=== PATIENT | male | born 1960 | race Caucasian/White ===

== ENCOUNTER → 2023-11-13 07:57 | Outpatient (REF) | payer OTHER, SELFPAY | LOC: WOUND 07:57 | PROVIDERS: ATTENDING PHYSICIAN Surgery; REFERRING PHYSICIAN Physician Assistant Medical | DX: T23.211A Burn of second degree of right thumb (nail), initial encounter (principal); T23.251A Burn of second degree of right palm, initial encounter; E11.9 Type 2 diabetes mellitus without complications; Z79.4 Long term (current) use of insulin; I10 Essential (primary) hypertension; X10.1XXA Contact with hot food, initial encounter; Y92.89 Other specified places as the place of occurrence of the external cause | CPT/HCPCS: 11042; 99204 ==

== ENCOUNTER → 2023-11-20 08:45 | Outpatient (REF) | payer OTHER, SELFPAY | LOC: WOUND 08:45 | PROVIDERS: ATTENDING PHYSICIAN Surgery; FAMILY PHYSICIAN Physician Assistant Medical | DX: T23.221A Burn of second degree of single right finger (nail) except thumb, initial encounter (principal); T23.251A Burn of second degree of right palm, initial encounter; E11.9 Type 2 diabetes mellitus without complications; Z79.4 Long term (current) use of insulin; I10 Essential (primary) hypertension; X08.8XXA Exposure to other specified smoke, fire and flames, initial encounter | CPT/HCPCS: 99212 ==

== ENCOUNTER 2024-01-21 17:58 | Inpatient (IN) | payer OTHER, SELFPAY ==
[2024-01-21] VITALS (10 sets, daily range): BP systolic 109–163; BP diastolic 60–91; PULSE 90–109; BMI 28.5; BMI 28.3
[2024-01-21 13:16] LABS: COVID-19 Antigen Negative (Negative)
[2024-01-21 13:59] LABS: Venous Blood Gas B.E. 4.6 mmol/L (-4 to +4); Venous Blood Gas HCO3 28.3 mmol/L (22-27); Venous Blood Gas O2 Sat % 71.2 %; Venous Blood Gas O2 Therapy 100; Venous Blood Gas pCO2 38 mmHg (35-48); Venous Blood Gas pH 7.48 (7.32-7.43); Venous Blood Gas pO2 34 mmHg (30-50)
[2024-01-21 14:00] LABS: % Basophils 0.2 % (0-2); % Eosinophils 0.1 % (0-6); % Immature Granulocytes 0.3 % (0-0.5); % Lymphocytes 12.9 % (20.5-51.1); % Monocytes 11.6 % (1.7-9.3); % Neutrophils 74.9 % (42.2-75.2); Absolute Lymphocytes 1.6 10^3/uL (1.2-3.4); Absolute Monocytes 1.4 10^3/uL (0.1-0.6); Absolute Neutrophils 9.1 10^3/uL (1.4-6.5); Hematocrit 45.9 % (39.0-52.0); Hemoglobin 16.7 g/dL (13.0-18.0); Mean Corp Hgb Conc. 36.4 g/dL (33.0-37.0); Mean Corpuscular Hgb 29.8 pg (27.0-31.0); Mean Corpuscular Volume 81.8 fL (80.0-94.0); Mean Platelet Volume 10.2 fL (7.4-10.4); Nucleated Red Blood Cells % 0 % (-); Platelet Count 269 10^3/uL (130-400); Red Blood Cell Count 5.61 10^6/uL (4.70-6.10); Red Cell Dist. Width 12.2 % (11.5-14.5); White Blood Cell Count 12.2 10^3/uL (4.8-10.8)
--- NOTE | 2024-01-21 14:05 | ED.GENMED ---
History of Present Illness
General
Chief Complaint: Cold/Flu/URI Symptoms
Time Seen by Provider: 01/21/24 13:06
Travel History
Have you had any contact with someone who has COVID-19?: No
Do you have any symptoms of coronavirus? Fever > 100 degrees, chills, cough, shortness of breath, sore throat, loss of taste or smell, muscle aches, or headache?: No
History of Present Illness
History of Present Illness:
63-year-old male with history of type 1 insulin-dependent diabetes presents to the emergency department for evaluation of nausea, decreased appetite, dizziness when ambulating, mild cough, intermittent chest pain ongoing for the past 5 days. Chest
pain is not clearly worse with exertion. States when he initially developed symptoms he thought 'I just had a cold'. Denies any ill contacts but notes that he was at [facility] visiting his daughter frequently this past week. Denies any
objective fevers at home. Chest pain is minimal currently. Denies any associated Vomiting or diarrhea.
Past History
Past History
ED Past Medical History: HTN, Hypercholesterolemia and IDDM
ED Past Surgical History: None
Social History
Tobacco: Former smoker
Alcohol: Occasional
Personal:
Living: with family
Employment: Employed
Review of Systems
Review of Systems
Allergies reviewed?: Yes
All Other Systems: ROS reviewed and negative except as documented in HPI and ROS
Phy Exam
Physical Exam
Physical Exam:
GEN: Well appearing, NAD, WDWN
Eyes: PERRLA, EOMs intact, no scleral icterus
HENT: NCAT, oral mucosa moist
Lungs: CTAB, no wheezes, rales, rhonchi, normal chest wall excursion
Cardiac: Mildly tachycardic after minimal exertion, no murmur or irregularity
Abdomen: S, NT, ND, NABS, no masses or hepatosplenomegaly
Neuro: AO x 3
MSK: No gross deformity or ecchymosis. No edema. No digital clubbing
Skin: No rashes, petechiae. Normal color, no pallor or jaundice.
Psych: Calm, cooperative, proper hygiene
Course
Orders/Labs/Results
Orders:
Orders
01/21/24 12:53
COVID-19 Antigen Urgent
Source: Nasal Swab
INF RAPID [Influenza A+B Rapid Molecular] Urgent
BUSHRA Source: Nasal Swab
Specimen Description:
01/21/24 13:31
Electrocardiogram (*1) Urgent
Reason for Study: Tachycardia
EKG- Treatment ONCE
01/21/24 13:33
0.9% Sodium Chloride 1000 ml [Nss] 1,000 ml IV BOLUS
01/21/24 13:48
Basic Metabolic Panel Urgent
Complete Blood Count/With Diff Urgent
NT-proBNP Urgent
Comment: add-on
Serum Osmolality Urgent
Troponin I Urgent
Venous Blood Gas Urgent
%Oxygen/Room Air: 100
01/21/24 14:34
Add On- LAB Urgent
Tests Added?: BNP
CT Chest Pe Study Urgent
Comment:
Reason For Exam: chest pain/SOB
01/21/24 15:31
Aspirin Chewable [Low Strength Aspirin] 243 mg PO NOW STA
01/21/24 15:47
Heparin 4,000 units IV NOW STA
Pharmacy Request to Place See Dose Instructions PO NOW STA
Discontinue all Active Warfarin orders?: Yes
Nursing to Place Non Medication Order As Directed
Physician Order: PTT 6 hours after initial start of Heparin infusion
01/21/24 16:00
PTT Routine
Prothrombin Time Routine
Heparin 75335 Units/250 ml 25,000 units in 250 ml IV PER PROTOCOL
Weight to be used for heparin protocol in kilograms (kg):: 87.4
Protocol:: Cardiac Tx/Acute Coronary
PTT Goal Range to be used:: PTT 73 to 111 seconds
Order type:: Initial
INITIAL Infusion Dose (UNITS/KG/hr) & then follow protocol:: 15 units/kg/hr
Infusion Dose in UNITS/hr & then follow protocol (UNITS/hr):: 1,300
INFUSION RATE in mL/hr & then follow protocol (mL/hr):: 13
PTT less than or equal to 64 seconds:: Increase rate by 200 units/hr (+ 2 mL/hr)
PTT 64.1 to 72.9 seconds:: Increase rate by 100 units/hr (+ 1 mL/hr)
PTT 73 to 111 seconds:: Target Range. No change in rate.
PTT 111.1 to 130.9 seconds:: Decrease rate by 100 units/hr (- 1 mL/hr)
PTT 131 to 199.9 seconds:: HOLD for 1 hr. Then decrease rate by 200 units/hr (- 2 mL/hr)
PTT greater than or equal to 200 seconds:: HOLD for 2 hrs & Notify Provider. Then decrease by 200 units/hr (-
2 mL/hr)
Lab follow-up:: Each change, PTT q6h until 2 consecutive are therapeutic. Then PTT
daily.
Pharmacy Request to Place See Dose Instructions IV DIRECTED
01/21/24 16:02
Urine Sodium Urgent
01/21/24 16:03
Add On- LAB Urgent
Tests Added?: serum osmolality
Osmolality, Random Urine Urgent
Urinalysis Reflex To Culture Urgent
01/21/24 16:07
Troponin I Urgent
Abnormal Lab Results
01/21/24
13:48
WBC 12.2 H 10^3/uL
(4.8-10.8)
Absolute Neuts (auto) 9.1 H 10^3/uL
(1.4-6.5)
Absolute Monos (auto) 1.4 H 10^3/uL
(0.1-0.6)
Lymphocytes % 12.9 L %
(20.5-51.1)
Monocytes % 11.6 H %
(1.7-9.3)
VBG pH 7.48 H
(7.32-7.43)
VBG HCO3 28.3 H mmol/L
(22-27)
Sodium 122 L mmol/L
(135-145)
Chloride 85 L mmol/L
(98-107)
BUN 26 H mg/dl
(9-20)
Glucose 254 H mg/dl
(70-99)
Troponin I 0.819 H* ng/ml
01/21/24 13:48
01/21/24 13:48
Vital Signs
Initial and Last Documented VS:
Initial Vital Signs
Temp Pulse Resp BP Pulse Ox
97.9 F 104 20 128/82 99
01/21/24 12:48 01/21/24 12:48 01/21/24 12:48 01/21/24 12:48 01/21/24 12:48
Last Documented Vital Signs
Temp Pulse Resp BP Pulse Ox
97.9 F 89 16 147/84 96
01/21/24 12:48 01/21/24 15:00 01/21/24 15:00 01/21/24 15:00 01/21/24 15:00
MDM/Problems Addressed
MDM/Problems Addressed:
63-year-old male presenting with extremely vague symptoms of orthostatic dizziness, intermittent chest pain, malaise, and nausea with poor appetite for the past several days. He is found to have an ischemic appearing EKG with markedly elevated
troponin. Given the vagueness of his symptoms and lack of clear angina presentation he was sent for a CT of the chest to rule out pulmonary embolism, pending at time of admission however appears to be negative on my interpretation. Patient started
promptly on antiplatelets and heparin, he is chest pain-free in the emergency department at this time. Will admit to the hospitalist service for NSTEMI and potential cardiac intervention.
Comment
Comment:
EKG independently interpreted by me shows normal sinus rhythm with lateral T wave flattening/ST depressions suspicious for ischemia, no ST elevations
*Critical Care Note
Total Time (30-74mins, 75-104mins- exclusive of procedures): 40 min
comment:
Critical care time: 40 min
Critical care time was exclusive of: Separately billable procedures, treating other patients, and teaching time
Critical care was necessary to treat or prevent imminent or life-threatening deterioration of the following conditions: ACS/NSTEMI
Critical care time spent personally by me on the following activities:
[x] Review of old charts
[x] Obtaining history from patient or surrogate
[x] Ordering and review of the laboratory studies
[x] Ordering and review of radiographic studies
[x] Ordering and performing treatments and interventions
[x] Patient patient's response to treatment
[x] Development of treatment plan with patient or surrogate
ED Attending Note
-
Portions of this chart may have been created with voice recognition software.� Occasional wrong word or��sound alike� substitutions may have occurred due to the inherent limitations of voice recognition software.
Discharge Plan
Departure
Patient Disposition: Admit
Date of Disposition: 01/21/24
Time of Disposition: 16:25
Admit to: IVU
Presentation/result/management discussed w/ accepting MD/DO: Hospitalist
Discharge Problem:
Non-ST elevation MO (NSTEMI)
Prescriptions:
No Action
aspirin 81 MG tablet,delayed release (DR/EC)
81 mg PO DAILY
simvastatin 20 MG tablet
40 mg PO DAILY
multivitamin [Daily Multiple] 1 EACH tablet
1 ea PO DAILY
ranitidine HCl 150 MG tablet
150 mg PO DAILY
losartan 25 MG tablet
25 mg PO DAILY
Humalog Insulin Pump
0 units SC . 24 HOURS
Patient Comments:
Dose varies daily.
[id number] [Airborne (lysine HCl)] 1 EACH tablet, effervescent
1 ea PO DAILY
amoxicillin-pot clavulanate 1 TABLET tablet
1 tab PO Q12 Qty: 20 0RF
Referrals:
Maria Del Carmen Davidson PA-C [Family Provider] -
Interventions
Interventions:
*Risk Screen - Suicide Last Done: 01/21/24 13:39
*General Assessment Last Done: 01/21/24 13:39
*Neglect/Abuse Screening Last Done: 01/21/24 13:39
ED- Fall Risk Assessment Last Done: 01/21/24 13:41
*ED COVID-19 Vaccine History Last Done: 01/21/24 13:39
ED- Pulmonary Assessment Last Done: 01/21/24 13:41
Discharge Date and Time
Print Language: TURKMEN
[2024-01-21 14:17] LABS: Blood Urea Nitrogen 26 mg/dl (9-20); Carbon Dioxide 26 mmol/L (22-30); Chloride 85 mmol/L (98-107); Estimated Creatinine Clearance 84 ml/min; Glucose 254 mg/dl (70-99); Sodium 122 mmol/L (135-145); eGFR > 60.00
[2024-01-21] MEDS: NSS 1000 IV (14:24)
[2024-01-21 14:28] LABS: Troponin I 0.819 ng/ml
[2024-01-21 15:21] LABS: NT-proBNP 3440 pg/ml
[2024-01-21] MEDS: LOW STRENGTH ASPIRIN 243 MG PO (15:56)
[2024-01-21] MEDS: HEPARIN 4000 UNITS IV (15:58)
--- NOTE | 2024-01-21 16:30 | HPS.HSE ---
Family Physician
-
Family Physician: Maria Del Carmen Davidson
Chief Complaint
-
chest pain
History of Present Illness
Mr. Fer Huston is a 63 yo man with hx HTN, HLD, DM1 who presents to the ER with intermittent chest pain over past 5 days in setting of URI symptoms.
Patient states last week he was visiting daughter in the hospital. On Monday he started with nasal congestion and right ear discomfort. He was prescribed Azithromycin by outpatient physician and has taken 2 doses (due in evenings). Nasal
congestion and ear congestion currently improved. He chronically wakes up with mucus stuck in throat and per family has morning episode that sounds like vomiting to get it out. Patient reports last week he had diarrhea and nausea with vomiting
that resolved post given Zofran. He has had decreased appetite but reports staying hydrated. No fevers.
Patient describes chest discomfort in throat exacerbated by eating/drinking. He states hard to say if worse with activity. Per family he has been in bed past week. When he came downstairs this morning he was noticealy short of breath.
Patient was orthostatic in ER. He reports symptoms of orthostasis x months and always has to move very slowly when going from laying to standing position (this preceded current illness).
Medical History
Past Medical History
Past Medical History: Reports HTN, Hypercholesterolemia and Other (DM 1)
Past Surgical History: Reports None
Social History
Tobacco: Former Smoker
Alcohol: Occasional
Family History
Family History: Not pertinent
Allergies / Home Medications
Allergies reflects when Allergies were last updated in [facility].
Home Medications with original date entered in [facility]
Allergy/Medication List:
Allergies
Allergy/AdvReac Type Severity Reaction Status Date / Time
Sulfa (Sulfonamide Allergy Intermediate Itching, Verified 01/21/24 12:48
Antibiotics) hives
Home Medications
Airborne Effervescent Tablet 2 tab PO DAILY 01/21/24
albuterol sulfate 90 mcg/actuation aerosol inhaler 2 puff inhalation R Q6HPRN PRN sob 01/21/24
aspirin 81 mg tablet,delayed release 81 mg PO DAILY 01/21/24
atorvastatin 40 mg tablet 40 mg PO DAILY 01/21/24
azithromycin 250 mg tablet 0 mg PO .COMPLEX 01/21/24
ezetimibe 10 mg tablet 10 mg PO DAILY 01/21/24
fexofenadine 180 mg tablet 180 mg PO DAILY 01/21/24
insulin aspart U-100 100 unit/mL subcutaneous solution 0 unit SC .VIA PUMP 01/21/24
lansoprazole 15 mg capsule,delayed release 15 mg PO DAILY 01/21/24
losartan 100 mg-hydrochlorothiazide 12.5 mg tablet 1 tab PO DAILY 01/21/24
ondansetron HCl 4 mg tablet 4 mg PO BIDPRN PRN nausea/vomiting 01/21/24
therapeutic multivitamin 1 tab PO DAILY 01/21/24
Review of Systems
-
History Source: Patient
A 12 point ROS was completed and negative except as noted: Yes
Physical Exam
Vital Signs
Vital Signs
Temp Pulse Resp BP Pulse Ox
97.9 F 89 16 147/84 96
01/21/24 12:48 01/21/24 15:00 01/21/24 15:00 01/21/24 15:00 01/21/24 15:00
Physical Exam
General: No Apparent Distress and Conversant
HEENT: PERRLA
Respiratory: Clear and Other (chest pain not reproducible ); No Wheezes
Cardiac: S1/S2 and Regular Rhythm
GI: Soft and Non Tender
Musculoskeletal: No Edema
Skin: Warm and Dry; No Rash
Neuro: AO x 3
Psych: Calm
Laboratory Results
-
01/21/24 13:48
01/21/24 13:48
Laboratory Results
PT Cancelled 01/21/24 15:10
INR Cancelled 01/21/24 15:10
APTT Cancelled 01/21/24 16:00
Total Bilirubin Cancelled 01/21/24 13:48
AST Cancelled 01/21/24 13:48
ALT Cancelled 01/21/24 13:48
Alkaline Phosphatase Cancelled 01/21/24 13:48
Troponin I 0.819 ng/ml H* 01/21/24 13:48
Data Reviewed
-
Diagnostic Radiology: Report Reviewed by me
Lab Data: Labs Reviewed by me
Impression/Plan
-
Mr. Fer Huston is a 63 yo man with hx HTN, HLD, DM1 who presents to the ER with intermittent chest pain over past 5 days.
Triage VS: T 97.9, P 104, RR 20, BP 128/82, SpO2 99%
LABS: Na 122 (corrected 124), Cl 85, BUN 26, Cr 0.9, Glucose 254, Troponin 0.819 --> 0.858, WBC 12.2, Hg 16.7, PLT 269
EKG: sinus with PAC's, ST depression lateral leads; T wave flattening lateral josette
covid, influenza negative
MAR: aspirin, heparin gtt, IVF
Chest CT
IMPRESSION:
There is no pulmonary embolism
No active cardiopulmonary disease
NSTEMI
-chest pain atypical as patient stating exacerbating with food intake. However given RF of DM, HTN and finding of elevated Troponin further work-up indicated.
-admit to telemetry
-Trop up to 0.858, will continue to trend
-asa/statin
-continue IV heparin gtt
-cardiology consult
-TTE
-NPO after MN for possible cardiac cath
-will start pepcid as sx resemble indigestion as well
Hyponatremia
-corrected Na with glucose is 124. likely SIADH/ high free water intake compared to solute with recent illness. Patient also on losartan-HCTZ at home
-awaiting urine studies
-orthostatic in ER and received 1L fluid bolus but it appears orthostasis is chronic over months
-case discussed with Dr. Moe who recommends initiation of 3% 250cc 30cc/hr
-repeat Na at 11PM and 5AM. Goal Na (corrected) tomorrow AM is ~ 127-128
-AM cortisol and TSH
-stop HCTZ
Orthostatic Hypotension
HTN
-patient reports chronic symptoms
-F/U TTE
-will order AM cortisol and TSH
-hold losartan-HCTZ
DM 1
-patient to use his own insulin pump - discussed with pharmacy who will confirm order
-F/U A1c
Recent URI
Cough/Congestion
-will complete patient's previously prescribed Azithromycin course
-mucinex, acapella
-discussed trial flonase at home for chronic morning congestion (not formulary in hospital)
DVT PPx heparin gtt
FULL CODE
[2024-01-21 16:35] LABS: Troponin I 0.858 ng/ml
[2024-01-21 16:38] LABS: INR 1.13; PT 14.3 Sec (11.4-14.6)
[2024-01-21 16:39] LABS: APTT 21.5 Sec (23.4-35.0)
[2024-01-21] MEDS: HEPARIN 25000 UNITS/250 ML IV (17:13)
[2024-01-21 17:23] LABS: Urine Albumin Negative (Neg - Trace); Urine Bilirubin Negative (Negative); Urine Character Clear (Clear); Urine Color Yellow; Urine Glucose Trace (Negative); Urine Ketone 1+ (Negative); Urine Leukocyte Negative (Negative); Urine Nitrite Negative (Negative); Urine Occult Blood Negative (Negative); Urine Specific Gravity 1.005 (<1.030); Urine Urobilinogen Negative (Neg - 1+)
[2024-01-21 17:34] LABS: Osmolality Urine 359 mOsm/kg (300-900)
[2024-01-21 17:36] LABS: Urine Sodium 5 mmol/L (30-90)
[2024-01-21 17:53] LABS: ALT (SGPT) 33 U/L (0-50); AST (SGOT) 33 U/L (17-59); Albumin 3.7 g/dl (3.5-5.0); Alkaline Phosphatase 122 U/L (38-126); Direct Bilirubin 0.4 mg/dl (0.0-0.4); Magnesium 2.3 mg/dl (1.6-2.3); Potassium 3.5 mmol/L (3.5-5.1); Total Bilirubin 1.4 mg/dl (0.2-1.3); Total Protein 6.6 g/dl (6.3-8.2)
[2024-01-21 18:00] LABS: Osmolality Serum 278 mOsm/kg (275-300)
[2024-01-21 18:29] LABS: Glucose - Point of Care 111 mg/dl (70-99)
--- NOTE | 2024-01-21 18:30 | PTCARENOTE ---
Pt. arrived to unit from ED, no c/o pain at this time, resting in bed comfortably. Heparin gtt infusing as ordered. Waiting for IV team nurse for a second line to start the 3% NA. Will pass on to oncoming shift nurse.
[2024-01-21] MEDS: LIPITOR 40 MG PO (19:35)
[2024-01-21] MEDS: MUCINEX 600 MG PO (19:35)
[2024-01-21] MEDS: KCL 40 MEQ PO (19:35)
[2024-01-21] MEDS: ZITHROMAX 250 MG PO (19:35)
[2024-01-21] MEDS: PEPCID 20 MG IV (19:59)
[2024-01-21] MEDS: NSS (PRESERVATIVE FREE) 8 ML IV (19:59)
[2024-01-21] MEDS: SODIUM CHLORIDE 3% 250 IV (20:23)
[2024-01-21 21:34] LABS: Glucose - Point of Care 78 mg/dl (70-99)
[2024-01-21] MEDS: PATIENT'S OWN INSULIN PUMP SC (21:48)
[2024-01-21 23:05] LABS: Glucose - Point of Care 109 mg/dl (70-99)
[2024-01-21 23:21] LABS: APTT 45.4 Sec (23.4-35.0)
[2024-01-21 23:26] LABS: Sodium 126 mmol/L (135-145)
[2024-01-21 23:38] LABS: Troponin I 0.892 ng/ml
--- NOTE | 2024-01-21 23:38 | PTCARENOTE ---
Pt Na 126 on Sodium Chloride 3% @30ml/hr gtt. RN notified MEAT GRADING MACHINE OPERATOR per order- no changes at this time. Pt is resting comfortably w/ call tylre within reach.
[2024-01-22] VITALS (16 sets, daily range): BP systolic 125–177; BP diastolic 65–93; BMI 28.3
[2024-01-22 02:56] LABS: Troponin I 0.835 ng/ml
[2024-01-22 06:18] LABS: Glucose - Point of Care 230 mg/dl (70-99)
[2024-01-22 06:43] LABS: APTT 74.8 Sec (23.4-35.0)
[2024-01-22 06:50] LABS: Troponin I 0.744 ng/ml
[2024-01-22 06:59] LABS: Blood Urea Nitrogen 23 mg/dl (9-20); Calcium 8.9 mg/dl (8.4-10.2); Carbon Dioxide 26 mmol/L (22-30); Chloride 94 mmol/L (98-107); Estimated Creatinine Clearance 84 ml/min; Glucose 265 mg/dl (70-99); HDL Cholesterol 51 mg/dl; LDL Cholesterol, Calculated 88 mg/dl; Potassium 5.3 mmol/L (3.5-5.1); Sodium 128 mmol/L (135-145); Total Cholesterol 158 mg/dl (50-199); Triglyceride 99 mg/dl (10-149); Very Low Density Lipoprotein 19 mg/dl (0-30); eGFR > 60.00
[2024-01-22] MEDS: PATIENT'S OWN INSULIN PUMP 8.90000000000000036 UNITS SC (07:40)
[2024-01-22] MEDS: CLARITIN 10 MG PO (08:35)
[2024-01-22] MEDS: PROTONIX 40 MG PO (08:35)
[2024-01-22] MEDS: MUCINEX 600 MG PO ×2 (08:35→20:35)
[2024-01-22] MEDS: LOW STRENGTH ASPIRIN 81 MG PO (08:35)
[2024-01-22] MEDS: ZETIA 10 MG PO (08:35)
[2024-01-22 08:50] LABS: Glycohemoglobin (HgbA1c) 8.2 % (4.0-5.6)
--- NOTE | 2024-01-22 08:57 | CON.CAR ---
Addendum entered and electronically signed by Mike Viveros MD 01/22/24 12:15:
Attending addendum: Patient seen and examined. Briefly, this is a 63-year-old gentleman with a past medical history notable for diabetes mellitus diagnosed in late , hypertension, hyperlipidemia, and former tobacco abuse. He stopped smoking
in 2007. He reports that he is reasonably active performing a lot of home repairs and mowing his lawn. Over the past 6 to 12 months he has noticed an increase in exertional shortness of breath and presented to [facility] with upper
respiratory symptoms. Workup from a pulmonary source was rather unrevealing, however, he was noted to have mildly elevated troponin that peaked at 0.892 ng/mL and is trending lower. A cardiology consult has been requested. Patient denies
significant amount of chest discomfort but did notice some throat tightness mostly after eating. No real exertional component. He does report some dizziness when standing. He was found to be hyponatremic on admission. He received some hypertonic
saline.
GEN: AAO x 3. No acute distress
HEENT: NC/AT, sclera are anicteric, hearing and nares are normal. MMM
NECK: Supple. Normal JVP. No carotid bruits.
LUNGS: Clear to bases bilaterally. No wheezing or rhonchi
CV: Regular rate and rhythm. Normal S1/S2. No S3, No S4. Murmur: None
ABD : Soft, NT, ND, No HSM. Bowel sounds are present.
EXT: No CCE. Dorsalis pedal and posterior tibial pulses palpable bilaterally. Right greater than left.
NEURO: No focal neurologic deficits
SKIN: Warm dry without rash
ECG: Sinus rhythm with nonspecific ST-T changes
Impression/Recommendation
-Elevated troponin with somewhat atypical chest discomfort
Multiple cardiovascular risk factors including long duration of diabetes, former history of tobacco use, hypertension, and hyperlipidemia.
Discussed treatment options in feel that invasive angiography is most appropriate given elevation in troponin and symptoms. I discussed the risk and benefit of invasive angiography and potential stent. Patient and family are in agreement to
proceed.
Discussed with nephrology and will proceed with hydration with normal saline prior to contrast administration as he received contrast for PE study yesterday
-Hypertension
-Long-duration diabetes:
Stressed the need for tight control. Low threshold to consider SGLT2 or GLP-1 RA
-Further management decisions to be made after the angiogram is completed
Original Note:
Consultation
Consultation Request
Date/Time Consultation Requested: 01/21/24 at 1831
Date/Time Consultation Performed: 01/22/24 at 0830
Requesting Provider: Dr. Murillo
Performing Provider: Dr. Viveros
Reason for Consultation: Chest pain, elevated Troponin
Medical History
-
History of Present Illness:
Patient came to [facility] yesterday with chest pain and ROMERO in the setting of a URI and cardiology has been consulted for elevated Troponin. Patient started with URI symptoms described as congestion and chills a week ago. He had a telehealth with his PCP
this past Monday and was started on azithromycin. He took doses Monday and Monday nights, but was not feeling much better by Monday and came to [facility] with ROMERO. patient and say that he has had ROMERO for months prior to this URI. Describes ROMERO
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 No resting chest pain. He had a stress test in 2009 for ROMERO, but this is different. He has DM 2 and HgbA1c 8.2%. He takes atorvastatin for hyperlipidemia and losartan/HCTZ for HTN. He reports lightheadedness with
crouching to standing and sitting to standing position changes on and off for the last year. He was hyponatremic on admission and has received hypertonic saline. He has never had hyponatremia per his report, last outpatient BMP in system is from
07/07/23 and sodium was 140.
PMH:
DM 2
HTN
Hyperlipidemia
Past Medical History
Past Medical History: Other (in HPI)
Past Surgical History: Other (ENT, septum surgery)
Social History
Tobacco: Former Smoker (smoked age 16 to age 48)
Alcohol: Occasional
Drug: None
Personal:
Living: With Family
Family History
Family History: CAD (father with [place])
Allergies / Home Medications
Allergy/AdvReac Type Severity Reaction Status Date / Time
Sulfa (Sulfonamide Allergy Intermediate Itching, Verified 01/21/24 12:48
Antibiotics) hives
�Medication �Instructions �Recorded �Confirmed �Type
Airborne Effervescent Tablet 2 tab PO DAILY Supplement 01/21/24 01/21/24 History
albuterol sulfate 90 mcg/actuation 2 puff inhalation R Q6HPRN PRN sob 01/21/24 01/21/24 History
aerosol inhaler
aspirin 81 mg tablet,delayed 81 mg PO DAILY Blood Clot 01/21/24 01/21/24 History
release Prevention/Tx
atorvastatin 40 mg tablet 40 mg PO DAILY High Cholesterol 01/21/24 01/21/24 History
azithromycin 250 mg tablet 0 mg PO .COMPLEX Infection 01/21/24 01/21/24 History
ezetimibe 10 mg tablet 10 mg PO DAILY High Cholesterol 01/21/24 01/21/24 History
fexofenadine 180 mg tablet 180 mg PO DAILY Allergies 01/21/24 01/21/24 History
insulin aspart U-100 100 unit/mL 0 unit SC .VIA PUMP Diabetes 01/21/24 01/21/24 History
subcutaneous solution
lansoprazole 15 mg capsule,delayed 15 mg PO DAILY Gastrointestinal 01/21/24 01/21/24 History
release Issue
losartan 100 1 tab PO DAILY Blood Pressure 01/21/24 01/21/24 History
mg-hydrochlorothiazide 12.5 mg
tablet
ondansetron HCl 4 mg tablet 4 mg PO BIDPRN PRN nausea/vomiting 01/21/24 01/21/24 History
therapeutic multivitamin 1 tab PO DAILY Supplement 01/21/24 01/21/24 History
Review of Systems
-
History Source: Patient and Family ( sitting bedside helping with HPI)
All other systems: Negative unless noted
Physical Exam
Vital Signs
Temp Pulse Resp BP Pulse Ox
97.9 F 78 18 157/93 96
01/22/24 03:58 01/22/24 03:58 01/22/24 03:58 01/22/24 03:58 01/22/24 03:58
GEN: NAD. AAOx3
HEENT: EOMI, MMM
LUNGS: CTA B/L, no wheezes or rales
CV: Reg, S1/S2, no murmur
ABD: soft, BS+, NT, ND
EXT: No clubbing, cyanosis, lesions or edema B/L
NEURO: Gross non-focal
SKIN: Warm, dry and pink. No rash
Lab Results
01/21/24 13:48
01/22/24 06:21
Troponin I 0.744 ng/ml H* 01/22/24 06:21
Nxe-R-Juglxgmzdfw Pept 3440 pg/ml 01/21/24 13:48
Impression / Plan
-
PCP: Maria Del Carmen BERNAL
Cardiology: None
Impression:
URI, was started on azithromycin prior to admission
Elevated Troponin
Chest pain and ROMERO
Hyponatremia
Hyperkalemia
DM 2
HTN
Hyperlipidemia
Echo 01/22/24: preliminary report, normal EF, no significant valve disease
Plan:
-Patient came to [facility] yesterday with chest pain and ROMERO in the setting of a URI and cardiology has been consulted for elevated Troponin. Patient started with URI symptoms described as congestion and chills a week ago. He had a telehealth with his
PCP this past Monday and was started on azithromycin. He took doses Monday and Monday nights, but was not feeling much better by Monday and came to [facility] with ROMERO. patient and say that he has had ROMERO for months prior to this URI. Describes ROMERO
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 No resting chest pain. He had a stress test in 2009 for ROMERO, but this is different. He has DM 2 and HgbA1c 8.2%. He takes atorvastatin for hyperlipidemia and losartan/HCTZ for HTN. He reports lightheadedness with
crouching to standing and sitting to standing position changes on and off for the last year. He was hyponatremic on admission and has received hypertonic saline. He has never had hyponatremia per his report, last outpatient BMP in system is from
07/07/23 and sodium was 140.
-Talked with patient and in room at length about chest pain, elevated Troponin and symptoms preceding URI. Patient with risk factors including age, gender, h/o smoking, DM, HTN and hyperlipidemia. Patient is agreeable to cath.
-Nonspecific ST changes on ECG reviewed by me.
-Pain free on Heparin gtt since admission
-Patient was taking an aspirin 81 mg daily prior to admission. He cannot think of any contraindication to DAPT.
-LDL 88 on atorvastatin 40 mg daily, will increase to 80 mg daily.
-Outpatient dose of losartan/HCTZ 100/12.5 mg daily is on hold for symptomatic orthostasis. Orthostatic VS are laying 158/60, sitting 127/85 and standing 109/79.
-Nephrology scheduled to see for hyponatremia, patient was given hypertonic saline 3% for 30 ml last night. No outpatient h/o hyponatremia by labs in 2022
-QTc 470 by ECG in ER last night and 484 by ECG this AM at 0209 reviewed by me. Recheck ECG and follow QTc while on azithromycin.
-Now hyperkalemic after KCl for potassium of 3.5 yesterday
[2024-01-22 09:40] LABS: Troponin I 0.647 ng/ml
[2024-01-22 10:13] LABS: TSH 1.48 uIU/ml (0.47-4.68)
[2024-01-22] MEDS: HEPARIN 25000 UNITS/250 ML IV (11:16)
--- NOTE | 2024-01-22 11:43 | W.CON.NEPH ---
Consultation
-
Date/Time Consultation Requested: January 22, 2024 9 AM
Date/Time Consultation Performed: January 22, 2024 11 AM
Requesting Provider: Dr. Burk
Performing Provider: Dr. Hernandez
Reason for Consultation: Hyponatremia
Medical History
-
Chief Complaint: Hyponatremia
History of Present Illness:
This is a 63-year-old gentleman who has diabetes mellitus type 2 with an insulin pump which is only modestly controlled as an outpatient. He also has hypertension on a multidrug regimen which has been fairly stable. He has hyperlipidemia on both
statin and Zetia therapy. This has been otherwise stable. He came to the emergency room yesterday because of 1 week of not feeling well with dyspnea on exertion. He has no chest pain. His oral intake had worsened to the point where he was only
drinking water and not eating anything at all. His family began to give him Pedialyte as well. This was in the last 2 days. Given his persistent symptoms he came to the emergency room after developing lightheadedness from crouching to standing
positions. As have admission he was noted to have a sodium level of 122 and elevated troponin values. This morning his sodium level has improved to 128 and he is for cardiac catheterization given his persistently elevated and abnormal troponin
values.
Past Medical History
Diabetes mellitus type 2, hypertension, hyperlipidemia, septum surgery
Social History
Tobacco: Former Smoker
Alcohol: Occasional
Family History
CAD
Allergies / Home Medications
Allergy/AdvReac Type Severity Reaction Status Date / Time
Sulfa (Sulfonamide Allergy Intermediate Itching, Verified 01/21/24 12:48
Antibiotics) hives
�Medication �Instructions �Recorded �Confirmed �Type
Airborne Effervescent Tablet 2 tab PO DAILY Supplement 01/21/24 01/21/24 History
albuterol sulfate 90 mcg/actuation 2 puff inhalation R Q6HPRN PRN sob 01/21/24 01/21/24 History
aerosol inhaler
aspirin 81 mg tablet,delayed 81 mg PO DAILY Blood Clot 01/21/24 01/21/24 History
release Prevention/Tx
atorvastatin 40 mg tablet 40 mg PO DAILY High Cholesterol 01/21/24 01/21/24 History
azithromycin 250 mg tablet 0 mg PO .COMPLEX Infection 01/21/24 01/21/24 History
ezetimibe 10 mg tablet 10 mg PO DAILY High Cholesterol 01/21/24 01/21/24 History
fexofenadine 180 mg tablet 180 mg PO DAILY Allergies 01/21/24 01/21/24 History
insulin aspart U-100 100 unit/mL 0 unit SC .VIA PUMP Diabetes 01/21/24 01/21/24 History
subcutaneous solution
lansoprazole 15 mg capsule,delayed 15 mg PO DAILY Gastrointestinal 01/21/24 01/21/24 History
release Issue
losartan 100 1 tab PO DAILY Blood Pressure 01/21/24 01/21/24 History
mg-hydrochlorothiazide 12.5 mg
tablet
ondansetron HCl 4 mg tablet 4 mg PO BIDPRN PRN nausea/vomiting 01/21/24 01/21/24 History
therapeutic multivitamin 1 tab PO DAILY Supplement 01/21/24 01/21/24 History
Review of Systems
-
As listed above. No chest pain no abdominal pain. No issues with urine output. Some nausea. The remainder of the complete review of systems was negative
Physical Exam
Vital Signs
Vital Signs
Temp Pulse Resp BP Pulse Ox
98.8 F 77 18 147/80 96
01/22/24 11:03 01/22/24 11:03 01/22/24 11:03 01/22/24 11:03 01/22/24 11:03
Lab Results
WBC 12.2 10^3/uL (4.8-10.8) H 01/21/24 13:48
RBC 5.61 10^6/uL (4.70-6.10) 01/21/24 13:48
Hgb 16.7 g/dL (13.0-18.0) 01/21/24 13:48
Hct 45.9 % (39.0-52.0) 01/21/24 13:48
Plt Count 269 10^3/uL (130-400) 01/21/24 13:48
Sodium 128 mmol/L (135-145) L 01/22/24 06:21
Potassium 5.3 mmol/L (3.5-5.1) H D 01/22/24 06:21
Chloride 94 mmol/L (98-107) L 01/22/24 06:21
Carbon Dioxide 26 mmol/L (22-30) 01/22/24 06:21
BUN 23 mg/dl (9-20) H 01/22/24 06:21
Creatinine 0.9 mg/dL (0.7-1.3) 01/22/24 06:21
eGFR > 60.00 01/22/24 06:21
Glucose 265 mg/dl (70-99) H 01/22/24 06:21
Calcium 8.9 mg/dl (8.4-10.2) 01/22/24 06:21
Xbn-B-Awuouidwgsm Pept 3440 pg/ml 01/21/24 13:48
Albumin 3.7 g/dl (3.5-5.0) 01/21/24 17:04
Physical Exam
Patient is awake alert oriented and in no distress. Mood and affect were pleasant, insight and judgment were good. Pupils are equal round and reactive to light, extraocular movements are intact, sclera were anicteric. Hearing was normal, ears and
nose are intact. Neck was supple with trachea midline and no thyromegaly. Heart was regular rate and rhythm without rubs. Lower extremities without edema. Lungs were clear to auscultation bilaterally and with normal excursion. Abdomen was soft,
nontender, with normal active bowel sounds, and no hepatosplenomegaly. Skin was without rash and with normal turgor.
Data Reviewed
-
CT Scan: Report Reviewed by me (CT with PE protocol on January 21, 2024 shows no PE, no acute disease)
Medical Tests (Nuc Med, Echo etc): Image Personally Visualized and interpreted (EKG on 01/22/2024 by my reading shows normal sinus rhythm prolonged QT nonspecific ST-T waves)
Labs: Labs Reviewed by me
Old Records: Reviewed (On July 07, 2023 sodium 140, potassium 5.1)
Assessment/Plan
-
Assessment:
Hyponatremia
Hyperkalemia
Diabetes mellitus type 2
Hypertension
Hyperlipidemia
Elevated troponin
Dyspnea
Poor oral intake
Plan:
His hyponatremia is likely on the basis of poor oral intake with normal fluid intake but no solids.
We will encourage oral intake at this time. If necessary additional IV fluids may be used.
Given that he has already received contrast and is for cardiac catheterization we will offer saline IV fluids with the procedure.
I discussed with the patient and family regarding contrast nephropathy. They are aware of the risk.
Follow BMP
[2024-01-22 11:48] LABS: Glucose - Point of Care 108 mg/dl (70-99)
[2024-01-22] MEDS: NSS 1000 IV (11:57)
[2024-01-22] MEDS: PATIENT'S OWN INSULIN PUMP SC (12:49)
--- NOTE | 2024-01-22 13:25 | ITS.CL.CATH ---
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
Cardiac Catheterization
Procedure Report:
LEFT HEART CATHETERIZATION
Date of Procedure: January 22, 2024
Referring: Dr. Mike Viveros
PROCEDURES:
1. Left heart catheterization with coronary and single-plane left ventriculography
INDICATION: This is a 63-year-old gentleman who presented to [facility] with complaints of cough and throat tightness postprandial. His had recently been ill with an upper respiratory tract infection. Workup was rather unrevealing,
however, his troponin was noted to be mildly elevated peaking at 0.89 ng/mL. He has a multitude of cardiovascular risk factors including longstanding diabetes, hypertension, hyperlipidemia. He is now referred for coronary angiography.
Of note: several weeks ago he was on a cruise and suffered significant arguello while eating onion soup. He had just swallowed scalding hot onion soup and experienced such severe throat pain that he passed out and his hand landed in his soup bowl
sustaining severe arguello on his hand and palm.
ACCESS: Right radial artery, 6 Romansh sheath
HEMODYNAMICS : (mmHg)
AO (s/d) : 145/68
LV (s/d) : 148/11
LVEDP : 25
CORONARY FINDINGS
DOMINANCE: Left
LEFT MAIN: Normal
LEFT ANTERIOR DESCENDING: The LAD arises normally from the left main and runs in the anterior interventricular groove. 40% proximal LAD. The remainder of the vessel has minor irregularities.
CIRCUMFLEX: The circumflex is a large-caliber dominant vessel. OM1 arises from the mid circumflex and has a smooth 70-80% proximal stenosis with DARCY-3 flow distally. This stenosis was not well appreciated on initial review of angiogram but noted
on secondary review. OM1 is a moderate to large caliber vessel.
RIGHT CORONARY ARTERY: The right coronary artery is a moderate caliber nondominant vessel with a 60% mid stenosis
VENTRICULOGRAPHY: Left ventriculography was performed in CALVILLO projection. The digital single-plane left ventricular ejection fraction is estimated at 65%. No regional wall motion abnormalities are noted
RADIATION SUMMARY: Fluoro Time (min): 2.5, Dose (mGy): 526, DAP (Gy.cm2) : 43.3
Closure Device: TR band
CONCLUSIONS
1. Coronary artery disease involving moderate to large caliber first obtuse marginal branch where smooth 70-80% proximal stenosis is appreciated.
2. Preserved left ventricular systolic function
RECOMMENDATIONS
1. Swallowing difficulties persist. The ONLY time that he has throat or chest discomfort is when swallowing. Would consider GI evaluation
2. I would treat with dual antiplatelet therapy for 6-12 months. Started oral beta elena.
3. Any recurring chest discomfort may prompt coronary intervention on OM1 stenosis.
Copy to: Dr. Kodi Hammond, Dr. Mike Viveros
[2024-01-22 13:31] LABS: Cortisol, Random 24.7 ug/dl
--- NOTE | 2024-01-22 13:35 | PTCARENOTE ---
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 Pt AAOX3. Pox: 98& RA. IVFs infusing without difficulty. Pt denies pain/SOB. Family at bedside. Call tyler within reach. Plan of care ongoing.
--- NOTE | 2024-01-22 13:57 | PN.DE.MGMTRT ---
Insulin Management
- -
01/22/2024: Diabetes management Consult
63 year old male who presents to the ER with intermittent chest pain over past 5 days in setting of URI symptoms.
PMH: HTN, HLD, DM1, A1C 8.2%, Cr eGFR>60. Routinely sees Dr. Bautista at [facility].
Pt uses Medtronic 770 with CGM Guardian sensor and NovoLog insulin for blood sugar management at home, he was last seen by marilu Velez in november and his A1C was 9.1% at the time which prompted adjustment to his basal rates.
Pt seen in room with family at bedside. He is Awake, A/O x3, Offers no complaints.
Pt states he was initially instructed to take off his pump in the ED but his glucose got elevated and he was instructed to resume his pump. His pump is currently in place, glucose via his sensor is reading at 165 with 1 units of insulin on board.
Upon exam of his abd, there is area of lipohypertrophy in his RLQ, pt was instructed to rotate sites and avoid using that specific site in his RLQ area for now.
Current pump settings are as follows:
Basal ICR
12A-3A 2.30 12A- 12P 1:2
3A-7A 2.60 12P - 8P 1:1.5
7A- 9A 2.50 8P - 12A 1:1.5
9A-12P 2.50 ISF
12P- 8P 3.0 12A - 12A 1:20
8P- 12A 2.75 Target 12A -12A 90-120
24 hr total basal 64.8 units. Cont use of insulin pump,pt is capable of using and managing his pump independently
Discussed and encouraged use of insulin worksheet which is already at bedside.
Diabetes History
- -
Type of Diabetes: 1
Pre-Admission Diabetes Regimen
01/21/24 01/22/24
13:48 06:21
Creatinine 0.9 0.9
Lab Results
Hemoglobin A1c Cancelled 01/21/24 18:31
Insulin Pump Settings
IP Diabetes Regimen
01/21/24 01/21/24 01/21/24
13:48 18:27 21:26
Glucose 254 H
POC Glucose 111 H 78
01/21/24 01/22/24 01/22/24
23:03 06:16 06:21
Glucose 265 H
POC Glucose 109 H 230 H
01/22/24
11:40
Glucose
POC Glucose 108 H
Patient Education
[2024-01-22] MEDS: COZAAR 100 MG PO (14:37)
--- NOTE | 2024-01-22 16:08 | CM ---
Chart reviewed, patient with family at bedside. Patient is independent with adl's and ambulation, no dme, drives, home when stable.
Pharmacy; [facility]
PCP: Maria Del Carmen Davidson
Plan; Home no needs when stable.
--- NOTE | 2024-01-22 16:27 | W.PN.HOSP.TC ---
Today's Communication/Plan
-
See plan
Assessment / Plan
Assessment / Plan
Impression:
Non-STEMI with troponin peak 0.2
Hypovolemic hyponatremia.
Orthostatic hypotension
Hypertension.
Type 1 diabetes on insulin pump.
Recent upper respiratory tract infection.
Plan:
Non-STEMI
Patient presents with described atypical chest pain, although with risk factors appropriate for urgent cardiac catheterization.
CT scan of the chest negative for PE
Troponin peak 2.2.
Left heart cath on 01/21 pending official report with nonobstructive CAD.
Off heparin drip.
DAPT
Toprol, statin, Zetia
Essential hypertension.
Reported dizziness with orthostasis prior to admission.
Monitor closely while on current antihypertensive/cardiovascular regimen including metoprolol, losartan
Hyponatremia secondary to hypovolemia.
Status post 3%
Responded to IV fluids.
Follow sodium level.
Nephrology input appreciated.
Reported upper respiratory illness
CT scan of the chest negative for PE and infiltrates.
Empiric antibiotics Zithromax orally.
Type 1 diabetes
Update hemoglobin A1c
Continue carbohydrate controlled diet
Continue insulin pump
Diabetes nurse petitioner consultation
Anticipated Discharge: 24 - 48 hours
Subjective/Interval History
-
Date of Service: January 22, 2024
Objective Data
-
Labs:
Laboratory Results
01/22/24 01/22/24
06:21 12:30
APTT 74.8 H Cancelled
Sodium 128 L
Potassium 5.3 H D
Chloride 94 L
Carbon Dioxide 26
BUN 23 H
Creatinine 0.9
Glucose 265 H
Calcium 8.9
Vital Signs:
Vital Signs
Temp Pulse Resp BP Pulse Ox
99.5 F 80 18 147/83 93
01/22/24 15:15 01/22/24 15:15 01/22/24 15:15 01/22/24 15:15 01/22/24 15:15
I&O
01/21/24 01/22/24 01/23/24
06:59 06:59 06:59
Intake Total 240 / 240
Balance 240 / 240
Physical Exam
-
General: Well Developed and No Apparent Distress
HEENT: Normocephalic, Atraumatic and Moist Mucous Membranes
Respiratory: Clear to Auscultation
Cardiac: Regular Rhythm and S1/S2; Negative Murmur, Rub or Gallop
GI: Soft, Nontender, Nondistended and Normal Bowel Sounds; Negative Organomegaly
Rectal: Deferred by Provider
Musculoskeletal: No Clubbing, No Cyanosis and No Edema
Skin: Negative Rash
Neuro: Nonfocal/Grossly Intact
[2024-01-22 16:40] LABS: Glucose - Point of Care 71 mg/dl (70-99)
[2024-01-22] MEDS: LIPITOR 80 MG PO (17:33)
[2024-01-22 19:18] LABS: Hepatitis C Antibody Negative (Negative)
[2024-01-22] MEDS: COREG 6.25 MG PO (20:35)
[2024-01-22] MEDS: PEPCID 20 MG PO (20:35)
[2024-01-22] MEDS: ZITHROMAX 250 MG PO (20:35)
[2024-01-22 21:53] LABS: Glucose - Point of Care 78 mg/dl (70-99)
[2024-01-23] VITALS (7 sets, daily range): BP systolic 129–183; BP diastolic 63–100
[2024-01-23 06:49] LABS: Hematocrit 44.2 % (39.0-52.0); Hemoglobin 15.4 g/dL (13.0-18.0); Mean Corp Hgb Conc. 34.8 g/dL (33.0-37.0); Mean Corpuscular Hgb 30.2 pg (27.0-31.0); Mean Corpuscular Volume 86.7 fL (80.0-94.0); Mean Platelet Volume 10.5 fL (7.4-10.4); Platelet Count 234 10^3/uL (130-400); Red Cell Dist. Width 12.2 % (11.5-14.5); White Blood Cell Count 9.5 10^3/uL (4.8-10.8)
[2024-01-23 07:16] LABS: Blood Urea Nitrogen 19 mg/dl (9-20); Calcium 8.6 mg/dl (8.4-10.2); Carbon Dioxide 32 mmol/L (22-30); Chloride 97 mmol/L (98-107); Estimated Creatinine Clearance 95 ml/min; Glucose 79 mg/dl (70-99); Potassium 4.5 mmol/L (3.5-5.1); Sodium 132 mmol/L (135-145); eGFR > 60.00
--- NOTE | 2024-01-23 07:24 | PN.DE.MGMTRT ---
Insulin Management
- -
01/23/2024: Diabetes management Consult Follow up
Patient admitted with intermittent chest pain over past 5 days in setting of URI symptoms.
PMH: HTN, HLD, DM1, A1C 8.2%, Cr eGFR>60. Routinely sees Dr. Bautista at [facility].
Pt uses Medtronic 770 with CGM Guardian sensor and NovoLog insulin for blood sugar management at home, he was last seen by Agustin in November and his A1C was 9.1% at the time which prompted adjustment to his basal rates.
Pt states he was initially instructed to take off his pump in the ED but his glucose got elevated and he was instructed to resume his pump. His pump is currently in place, range yesterday 71 to 108.
Noted sites of lipohypertrophy in his RLQ, pt was instructed to rotate sites and avoid using that specific site in his RLQ area for now.
Current pump settings are as follows:
Basal ICR
12A 2.30 12A 1:2
3A 2.60 12P 1:1.5
7A 2.50 8P 1:1.5
9A 2.50 ISF
12P 3.0 12A - 12A 1:20
8P 2.75 Target 12A -12A 90-120
24 hr total basal 64.8 units. Patient is capable of using and managing his pump independently, to continue.
Discussed and encouraged use of insulin worksheet which is already at bedside.
Diabetes History
- -
Type of Diabetes: 1
Pre-Admission Diabetes Regimen
01/23/24
05:58
Creatinine 0.8
Lab Results
Hemoglobin A1c Cancelled 01/21/24 18:31
Insulin Pump Settings
IP Diabetes Regimen
01/22/24 01/22/24 01/22/24
11:40 16:38 21:52
Glucose
POC Glucose 108 H 71 78
01/23/24
05:58
Glucose 79
POC Glucose
Meal type: Lunch
Amount consumed: 100%
Patient Education
[2024-01-23 08:17] LABS: Glucose - Point of Care 72 mg/dl (70-99)
[2024-01-23] MEDS: PROTONIX 40 MG PO (08:39)
[2024-01-23] MEDS: MUCINEX 600 MG PO ×2 (08:39→20:34)
[2024-01-23] MEDS: COZAAR 100 MG PO (08:39)
[2024-01-23] MEDS: CLARITIN 10 MG PO (08:39)
[2024-01-23] MEDS: ZETIA 10 MG PO (08:39)
[2024-01-23] MEDS: PLAVIX 75 MG PO (08:39)
[2024-01-23] MEDS: COREG 6.25 MG PO ×2 (08:40→20:34)
[2024-01-23] MEDS: LOW STRENGTH ASPIRIN 81 MG PO (08:42)
--- NOTE | 2024-01-23 10:54 | W.PN.NEPH.PH ---
Today's Communication / Plan
-
follow BMP
Assessment/Plan
-
Assessment:
Hyponatremia
Hyperkalemia
Diabetes mellitus type 2
Hypertension
Hyperlipidemia
Elevated troponin
Dyspnea
Poor oral intake
Plan:
-follow BMP (contrast x2, ARB)
-will benefit from GI evaluation of swallowing (said he may have scalded his esophagus 10weeks ago with hot soup)
-swallowing study
-
-
Date of Service: January 23, 2024
CC / HPI / ROS
-
Chief Complaint:
hyponatremia
History of Present Illness:
Na up to 132
s/p cath, no intervention, placed back on ARB
Cr stable at baseline
still issues with swallowing
Review of Systems:
weak
no CP
Labs
-
Labs:
WBC 9.5 10^3/uL (4.8-10.8) 01/23/24 05:58
RBC 5.10 10^6/uL (4.70-6.10) 01/23/24 05:58
Hgb 15.4 g/dL (13.0-18.0) 01/23/24 05:58
Hct 44.2 % (39.0-52.0) 01/23/24 05:58
Plt Count 234 10^3/uL (130-400) 01/23/24 05:58
Sodium 132 mmol/L (135-145) L 01/23/24 05:58
Potassium 4.5 mmol/L (3.5-5.1) 01/23/24 05:58
Chloride 97 mmol/L (98-107) L 01/23/24 05:58
Carbon Dioxide 32 mmol/L (22-30) H 01/23/24 05:58
BUN 19 mg/dl (9-20) 01/23/24 05:58
Creatinine 0.8 mg/dL (0.7-1.3) 01/23/24 05:58
eGFR > 60.00 01/23/24 05:58
Glucose 79 mg/dl (70-99) 01/23/24 05:58
Calcium 8.6 mg/dl (8.4-10.2) 01/23/24 05:58
Mbw-X-Hckjgudnpsk Pept 3440 pg/ml 01/21/24 13:48
Albumin 3.7 g/dl (3.5-5.0) 01/21/24 17:04
Physical Exam
-
Vital Signs:
Vital Signs
Temp Pulse Resp BP Pulse Ox
98.3 F 69 18 180/91 96
01/23/24 08:20 01/23/24 08:40 01/23/24 08:20 01/23/24 08:40 01/23/24 10:20
Cardiovascular:: Regular rate and rhythm
Respiratory:: Bilateral: Coarse
Lung Excursion:: Normal
Abdomen:: Nontender and Soft
Bowel Sounds:: Normal
Extremity Edema:: None: Bilateral:
--- NOTE | 2024-01-23 11:18 | W.PN.UPDATE ---
Update Note
Progress Note Update
Attending addendum: I spoke with patient's and informed her about the stenosis in OM1. If he has recurring anginal symptoms we should consider stenting of OM1. Beta-elena was just started and titrated yesterday and I see that blood
pressures are high for which I added amlodipine. Would continue aspirin and clopidogrel. High intensity statin
[2024-01-23] MEDS: NORVASC 5 MG PO (11:31)
[2024-01-23 12:28] LABS: Glucose - Point of Care 98 mg/dl (70-99)
--- NOTE | 2024-01-23 12:39 | W.PN.CARDCBS ---
Addendum entered and electronically signed by Liliya Ann MD 01/23/24 20:17:
I saw and examined the patient.
The Universal Banker's note was reviewed and I agree with the note.
Comment: Overall doing well. Main complaint with throat and chest discomfort related to swallowing only and not being able to tolerate any PO other than liquids.
Vitals reviewed. Labwork and cath reviewed with flat low level troponin. ECG without acute ischemic changes. Exam with well appearing male in NAD, awake, alert, oriented x 3, and daughter is at bedside, No JVD, Lungs, CTA, RR, normal S1 and S2.
no m/r/g, abd soft, NT, ND, + BS, no LE edema
Reccs:
1. Cont med rx for NSTEMI--DAPT, statin, BB, CCB. Uptitrate as BPs tolerated. Monitor for any recurrent sxs.
2. His swallowing sxs are not explained from a cardiac etiology therefore certainly appreciate GI input. Can hold plavix if need be for any GI workup, will resume when safe.
Liliya Ann MD
Original Note:
Today's Communication / Plan
-
Continue beta-elena, amlodipine, aspirin and Plavix
Consider GI evaluation given ongoing throat pain difficulty eating or swallowing
Impression / Plan
-
PCP: Maria Del Carmen BERNAL
Cardiology: None, initial consult Dr. Viveros
Impression:
Presented 01/21/2024 with chest pain
URI, was started on azithromycin prior to admission
Elevated Troponin, peak 0.892
Chest pain and ROMERO
Hyponatremia
Hyperkalemia
DM 2
HTN
Hyperlipidemia
Echo 01/22/24: preliminary report, normal EF, no significant valve disease
Cardiac catheterization 01/22/2024: LM: Normal; LAD: Proximal 40%, LI. LCX: LI, OM 1 smooth 70 to 80% proximal stenosis with DARCY-3 flow; RCA: 60% mid
Plan:
-Presented 01/21/2024 with ongoing throat/chest pain, dyspnea on exertion
Abnormal troponin peaked at 0.892
-Underwent cardiac catheterization 01/22/2024 which demonstrated mild to moderate nonobstructive coronary artery disease with greatest lesion 70 to 80% proximal OM stenosis with DARCY-3 flow.
-Decision is for medical management with beta elena, amlodipine and dual antiplatelet therapy with aspirin and Plavix for at least 6 months.
-Remains chest pain free
-If patient should have ongoing angina symptoms can consider return for elective PCI
-LDL 88 on atorvastatin 40 mg daily, increased to 80 mg daily.
-Hemoglobin A1C 8.2%, defer to primary care
-QTc 470 by ECG in ER last night and 484 by ECG 01/21 AM, 468 ms on 423. Follow QTc while on azithromycin.
Hypertension
-Outpatient dose of losartan/HCTZ 100/12.5 mg daily is on hold for symptomatic orthostasis. Orthostatic VS are laying 158/60, sitting 127/85 and standing 109/79.
-Now on Coreg 6.25 mg twice a day and amlodipine following results of cardiac catheterization
-Continue to monitor and trend blood pressure
Electrolyte disturbance
-hyponatremia
-Nephrology following patient was given hypertonic saline 3%
-NA improved to 132
-Initially hypokalemic with sodium 3.5, then 5.3, currently 4.5.
Ongoing throat pain with swallowing even water. Admits he has no desire to eat due to ongoing pain. He continues to feel weak. This occurred after patient swallowed scolding hot soup on cruise ship. Agree with nephrology recommendation of
patient being evaluated by GI
HPI 01/22/2024:
[facility] with chest pain and ROMERO in the setting of a URI and cardiology has been consulted for elevated Troponin. Patient started with URI symptoms described as congestion and chills a week ago. He had a telehealth with his PCP
this past Monday and was started on azithromycin. He took doses Monday and Monday nights, but was not feeling much better by Monday and [facility]. patient and say that he has had ROMERO for months prior to this URI. Describes ROMERO
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 No resting chest pain. He had a stress test in 2009 for ROMERO, but this is different. He has DM 2 and HgbA1c 8.2%. He takes atorvastatin for hyperlipidemia and losartan/HCTZ for HTN. He reports lightheadedness with
crouching to standing and sitting to standing position changes on and off for the last year. He was hyponatremic on admission and has received hypertonic saline. He has never had hyponatremia per his report, last outpatient BMP in system is from
07/07/23 and sodium was 140.
Of note: several weeks ago he was on a cruise and suffered significant arguello while eating onion soup. He had just swallowed scalding hot onion soup and experienced such severe throat pain that he passed out and his hand landed in his soup bowl
sustaining severe arguello on his hand and palm.
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
Subjective
Date of Service: January 23, 2024
Patient seen and examined. Patient's biggest complaint is ongoing issues with throat pain and difficulty swallowing. He reports only thing he can really get down is water and that even hurts. He denies chest pain
Objective
Labs:
01/23/24 05:58
01/23/24 05:58
Labs
Hgb 15.4 g/dL (13.0-18.0) 01/23/24 05:58
Hct 44.2 % (39.0-52.0) 01/23/24 05:58
Plt Count 234 10^3/uL (130-400) 01/23/24 05:58
PT 14.3 Sec (11.4-14.6) 01/21/24 16:00
INR 1.13 01/21/24 16:00
APTT Cancelled 01/22/24 12:30
Sodium 132 mmol/L (135-145) L 01/23/24 05:58
Potassium 4.5 mmol/L (3.5-5.1) 01/23/24 05:58
BUN 19 mg/dl (9-20) 01/23/24 05:58
Creatinine 0.8 mg/dL (0.7-1.3) 01/23/24 05:58
Glucose 79 mg/dl (70-99) 01/23/24 05:58
Troponins
01/21/24 01/21/24 01/21/24
13:48 16:07 23:04
Troponin I 0.819 H* 0.858 H* 0.892 H*
01/22/24 01/22/24 01/22/24
02:03 06:21 08:47
Troponin I 0.835 H* 0.744 H* 0.647 H*
01/22/24 01/22/24 01/22/24
11:00 14:00 17:00
Troponin I Cancelled Cancelled Cancelled
01/22/24 01/22/24
20:00 23:00
Troponin I Cancelled Cancelled
Vital Signs and I&O:
Vital Signs
Temp Pulse Resp BP Pulse Ox
98.1 F 69 18 142/66 97
01/23/24 11:55 01/23/24 11:55 01/23/24 11:55 01/23/24 11:55 01/23/24 11:55
Vital Signs
Temp Pulse Resp BP Pulse Ox
98.1 F 69 18 142/66 97
01/23/24 11:55 01/23/24 11:55 01/23/24 11:55 01/23/24 11:55 01/23/24 11:55
Intake & Output
01/21/24 01/22/24 01/23/24 01/24/24
06:59 06:59 06:59 06:59
Intake Total 240 / 240 480 / 480
Output Total 1000 / 1000
Balance 240 / 240 -520 / -520
Physical Exam
Physical Exam
GEN: No distress, awake, Ox3
HEENT: supple, anicteric, mmm
LUNGS: CTA, no wheezes/rales
CV: Reg, S1/S2, 1/6 syst LSB, no murmur
ABD: soft, BS+, NT/ND
EXT: No edema, no clubbing or cyanosis; right radial access site positive pulses, no hematoma or sign of infection
NEURO: Gross non-focal
SKIN: No rash, warm, dry, pink
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
[2024-01-23] MEDS: PROTONIX 100 IV (14:56)
[2024-01-23] MEDS: CARAFATE SUSPENSION 1 GM PO ×2 (15:42→20:35)
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
[2024-01-23 17:28] LABS: Glucose - Point of Care 91 mg/dl (70-99)
[2024-01-23] MEDS: LIPITOR 80 MG PO (17:46)
[2024-01-23] MEDS: ZITHROMAX 250 MG PO (20:34)
[2024-01-23] MEDS: PEPCID 20 MG PO (20:35)
[2024-01-24] MEDS: PROTONIX 100 IV ×2 (00:19→08:55)
[2024-01-24 00:31] LABS: Glucose - Point of Care 75 mg/dl (70-99)
[2024-01-24 03:28] VITALS: BP 121/79
[2024-01-24 05:39] LABS: Hematocrit 41.9 % (39.0-52.0); Hemoglobin 14.8 g/dL (13.0-18.0); Mean Corp Hgb Conc. 35.3 g/dL (33.0-37.0); Mean Corpuscular Hgb 29.8 pg (27.0-31.0); Mean Corpuscular Volume 84.5 fL (80.0-94.0); Mean Platelet Volume 10.2 fL (7.4-10.4); Platelet Count 241 10^3/uL (130-400); Red Blood Cell Count 4.96 10^6/uL (4.70-6.10); Red Cell Dist. Width 12.4 % (11.5-14.5); White Blood Cell Count 9.7 10^3/uL (4.8-10.8)
[2024-01-24 05:48] LABS: INR 1.08; PT 13.9 Sec (11.4-14.6)
[2024-01-24 05:49] LABS: APTT 24.6 Sec (23.4-35.0)
[2024-01-24 06:05] LABS: Blood Urea Nitrogen 17 mg/dl (9-20); Calcium 8.8 mg/dl (8.4-10.2); Carbon Dioxide 31 mmol/L (22-30); Chloride 98 mmol/L (98-107); Estimated Creatinine Clearance 95 ml/min; Glucose 109 mg/dl (70-99); Potassium 4.5 mmol/L (3.5-5.1); Sodium 133 mmol/L (135-145); eGFR > 60.00
--- NOTE | 2024-01-24 07:25 | PN.DE.MGMTRT ---
Insulin Management
- -
01/24/2024: Diabetes management Consult Follow up
Patient admitted with intermittent chest pain over past 5 days in setting of URI symptoms.
PMH: HTN, HLD, DM1, A1C 8.2%, Cr .8, eGFR>60. Routinely sees Dr. Bautista, endocrine, at [facility].
Pt uses Medtronic 770 with CGM Guardian sensor and NovoLog insulin for blood sugar management at home, he was last seen by Agustin in November and his A1C was 9.1% at the time which prompted adjustment to his basal rates.
Patient is awake alert and oriented. Able to discuss diabetes plan of care.
Glucose well controlled, range 72 to 98, will make no change to pump settings. Patient is NPO for procedure this AM
Noted sites of lipohypertrophy in his RLQ, pt was instructed to rotate sites and avoid using that specific site in his RLQ area for now.
Current pump settings are as follows:
Basal ICR
12A 2.30 12A 1:2
3A 2.60 12P 1:1.5
7A 2.50 8P 1:1.5
9A 2.50 ISF
12P 3.0 12A - 12A 1:20
8P 2.75 Target 12A -12A 90-120
24 hr total basal 64.8 units. Patient is capable of using and managing his pump independently, to continue.
Discussed and encouraged use of insulin worksheet which is already at bedside.
Diabetes History
- -
Type of Diabetes: 2 requiring insulin
Pre-Admission Diabetes Regimen
01/24/24
05:04
Creatinine 0.8
Lab Results
Hemoglobin A1c Cancelled 01/21/24 18:31
Insulin Pump Settings
IP Diabetes Regimen
01/23/24 01/23/24 01/23/24
08:07 12:17 17:27
Glucose
POC Glucose 72 98 91
01/24/24 01/24/24
00:29 05:04
Glucose 109 H
POC Glucose 75
Meal type: Lunch
Meal type: Breakfast
Amount consumed: 20%
Amount consumed: 100%
Patient Education
[2024-01-24 08:10] LABS: Glucose - Point of Care 93 mg/dl (70-99)
[2024-01-24 08:12] VITALS: BP 151/83
[2024-01-24] MEDS: CARAFATE SUSPENSION 1 GM PO ×2 (08:53→13:08)
[2024-01-24] MEDS: PLAVIX 75 MG PO (08:53)
[2024-01-24] MEDS: COREG 6.25 MG PO (08:53)
[2024-01-24] MEDS: NORVASC 5 MG PO (08:53)
[2024-01-24] MEDS: ZETIA 10 MG PO (08:53)
[2024-01-24] MEDS: COZAAR 100 MG PO (08:54)
[2024-01-24] MEDS: MUCINEX 600 MG PO (08:54)
[2024-01-24] MEDS: LOW STRENGTH ASPIRIN 81 MG PO (08:54)
[2024-01-24] MEDS: CLARITIN 10 MG PO (08:55)
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
--- NOTE | 2024-01-24 11:45 | W.PN.NEPH.PH ---
Today's Communication / Plan
-
Sign off
Assessment/Plan
-
Assessment:
Hyponatremia
Hyperkalemia
Diabetes mellitus type 2
Hypertension
Hyperlipidemia
Elevated troponin
Dyspnea
Poor oral intake
Plan:
-follow BMP (contrast x2, ARB), creatinine stable and normalized
-EGD reviewed
-Sodium up to 133
-maintain off HCTZ
-We will sign off
-
-
Date of Service: January 24, 2024
CC / HPI / ROS
-
Chief Complaint:
hyponatremia
History of Present Illness:
Na up to 133
s/p cath, no intervention
Cr stable at baseline
still issues with swallowing status post EGD
Review of Systems:
weak
no CP
Labs
-
Labs:
WBC 9.7 10^3/uL (4.8-10.8) 01/24/24 05:04
RBC 4.96 10^6/uL (4.70-6.10) 01/24/24 05:04
Hgb 14.8 g/dL (13.0-18.0) 01/24/24 05:04
Hct 41.9 % (39.0-52.0) 01/24/24 05:04
Plt Count 241 10^3/uL (130-400) 01/24/24 05:04
Sodium 133 mmol/L (135-145) L 01/24/24 05:04
Potassium 4.5 mmol/L (3.5-5.1) 01/24/24 05:04
Chloride 98 mmol/L (98-107) 01/24/24 05:04
Carbon Dioxide 31 mmol/L (22-30) H 01/24/24 05:04
BUN 17 mg/dl (9-20) 01/24/24 05:04
Creatinine 0.8 mg/dL (0.7-1.3) 01/24/24 05:04
eGFR > 60.00 01/24/24 05:04
Glucose 109 mg/dl (70-99) H 01/24/24 05:04
Calcium 8.8 mg/dl (8.4-10.2) 01/24/24 05:04
Lpw-F-Cxaelkbooun Pept 3440 pg/ml 01/21/24 13:48
Albumin 3.7 g/dl (3.5-5.0) 01/21/24 17:04
Physical Exam
-
Vital Signs:
Vital Signs
Temp Pulse Resp BP Pulse Ox
98.3 F 70 18 151/83 98
01/24/24 08:12 01/24/24 08:53 01/24/24 08:12 01/24/24 08:53 01/24/24 08:12
Respiratory:: Bilateral: CTA
Lung Excursion:: Normal
Abdomen:: Nontender and Soft
Bowel Sounds:: Normal
Extremity Edema:: None: Bilateral:
Mueller Catheter: No
--- NOTE | 2024-01-24 11:55 | W.PN.UPDATE ---
Update Note
Progress Note Update
s/p EGD today with findings of LA Grade D esophagitis, biopsies taken to rule out graham. Erosive gastritis in the fundus of the stomach, otherwise, normal stomach. Normal examined duodenum.
Recommendations:
-Increase PPI to BID x8 weeks--Can use Lansoprazole 30mg BID
-Famotidine 40 mg prn for breakthrough
-Sucralfate QID prn
-Needs repeat EGD in 2 months
-Outpatient follow-up with Kelley Suggs/Dr. Benavides on 02/16/24 @ 11:30 AM.
GI will sign off. Please call with questions.
[2024-01-24 12:55] VITALS: BP 149/72
[2024-01-24 12:59] LABS: Glucose - Point of Care 89 mg/dl (70-99)
--- NOTE | 2024-01-24 14:11 | PN.CDI ---
CDI
- -
CDI:
Physician Documentation Request
Admit Date: 01/21/24 17:58
Dear Doctor Chidi,
Please review the following and provide your response in the progress notes.
Clinical Indicators:
- 01/22 PN 'Type 1 diabetes on insulin pump'
- 01/23 Diabetes Note 'Type of Diabetes: 2 requiring insulin'
- 01/23 Nephrology 'Diabetes mellitus type 2'
In an attempt to clarify potentially conflicting documentation, please clarify the type of diabetes:
Type 1
Type 2
Other
Use of terms such as suspected, likely, concern for, or probable (associated with a specific diagnosis that is being evaluated, monitored, or treated as if it exists) are acceptable and can be coded in the inpatient setting, when documented at the
time of discharge.
Thank you,
Hanna Montalvo RN
CDI Specialist
Please use your independent medical judgment in providing your response.
--- NOTE | 2024-01-24 14:25 | PN.CDI ---
CDI
- -
CDI:
Physician Documentation Request
Admit Date: 01/21/24 17:58
Dear Doctor Chidi,
Please review the following and provide your response in the progress notes.
Clinical Indicators:
The diagnosis of NSTEMI was documented on 01/22 PN
- 01/22 PN 'Non-STEMI with troponin peak 0.2...Left heart cath on 01/21 1. Coronary artery disease'
- 01/23 Cardiology 'Continue medical therapy for nonobstructive CAD'
- 'Initial concern was for ACS ...cardiac cath that ultimately showed nonobstructive CAD that is being medically managed'
- 'elevated Troponin as a nonischemic myocardial injury'
Please clarify the following:
____ - NSTEMI was present on admission
____ - NSTEMI was ruled out- Non-ischmemic myocardial injury
____ - Other
Use of terms such as suspected, likely, concern for, or probable (associated with a specific diagnosis that is being evaluated, monitored, or treated as if it exists) are acceptable and can be coded in the inpatient setting, when documented at the
time of discharge.
Thank you,
Hanna Montalvo RN
CDI Specialist
Please use your independent medical judgment in providing your response.
--- NOTE | 2024-01-24 15:36 | W.DS.TRANS ---
DC Summary - Fill Technician
-
Discharge Instructions:
Discharge Diagnosis/Procedures NSTEMI, s/p cardiac catheterization
CAD
Esophagitis
Hyponatremia
Diet Low Cholesterol
Driving Restrictions No driving for 24 hours
Other Services Cardiac Rehab
Instructions:
Stand-Alone Forms: DC Instructions- Cath/EP Lab
Changes to Home Medications: Yes
Discharge Medications:
DC Medications w/original date entered in [employer]
albuterol sulfate 90 mcg/actuation aerosol inhaler 2 puff inhalation R Q6HPRN PRN sob 01/21/24
aspirin 81 mg tablet,delayed release 81 mg PO DAILY Blood Clot Prevention/Tx 01/21/24
atorvastatin 40 mg tablet 40 mg PO DAILY High Cholesterol 01/21/24
ezetimibe 10 mg tablet 10 mg PO DAILY High Cholesterol 01/21/24
fexofenadine 180 mg tablet 180 mg PO DAILY Allergies 01/21/24
insulin aspart U-100 100 unit/mL subcutaneous solution 0 unit SC .VIA PUMP Diabetes 01/21/24
therapeutic multivitamin 1 tab PO DAILY Supplement 01/21/24
amlodipine 5 mg tablet 5 mg PO DAILY #30 tabs 01/24/24
carvedilol 6.25 mg tablet 6.25 mg PO BID #60 tabs 01/24/24
clopidogrel 75 mg tablet 75 mg PO DAILY #30 tabs 01/24/24
famotidine 20 mg tablet 20 mg PO HS #30 tabs 01/24/24
losartan 100 mg tablet 100 mg PO DAILY #30 tabs 01/24/24
pantoprazole 40 mg granules delayed-release for susp in packet (Protonix) 40 mg PO BID #60 ea 01/24/24
sucralfate 100 mg/mL oral suspension 1 gm PO ACHS #3 mL 01/24/24
Home Medication Changes
DAPT, metoprolol, amlodipine started.
PPI along with H 2 blockers and Carafate
Pending Results: No
--- NOTE | 2024-01-24 15:57 | CM ---
Met with patient at bedside
Plan: discharge to home today; no services needed; family will provide ride home
[2024-01-24 16:09] VITALS: BP 148/70
== END 2024-01-24 17:01 | disposition home or self-care (01) | DRG 281 ==
LOC: 4 EAST ACU 17:58
PROVIDERS: Nurse Practitioner; Physician Assistant; ADMITTING PHYSICIAN Student in an Organized Health Care Education/Training Program; ATTENDING PHYSICIAN Internal Medicine; EMERGENCY PHYSICIAN Student in an Organized Health Care Education/Training Program; FAMILY PHYSICIAN Physician Assistant; OTHER PHYSICIAN Internal Medicine; OTHER PHYSICIAN Internal Medicine Interventional Cardiology; OTHER PHYSICIAN Specialist
PROC: B2111ZZ Fluoroscopy of Multiple Coronary Arteries using Low Osmolar Contrast (ICD-10-PCS; 2024-01-22)
PROC: B2151ZZ Fluoroscopy of Left Heart using Low Osmolar Contrast (ICD-10-PCS; 2024-01-22)
PROC: 4A023N7 Measurement of Cardiac Sampling and Pressure, Left Heart, Percutaneous Approach (ICD-10-PCS; 2024-01-22)
PROC: 0DB58ZX Excision of Esophagus, Via Natural or Artificial Opening Endoscopic, Diagnostic (ICD-10-PCS; 2024-01-24)
DX: I21.4 Non-ST elevation (NSTEMI) myocardial infarction (principal); E22.2 Syndrome of inappropriate secretion of antidiuretic hormone; Z87.891 Personal history of nicotine dependence; I95.1 Orthostatic hypotension; I10 Essential (primary) hypertension; E10.9 Type 1 diabetes mellitus without complications; Z79.4 Long term (current) use of insulin; Z79.82 Long term (current) use of aspirin; E87.5 Hyperkalemia; E78.00 Pure hypercholesterolemia, unspecified; E86.1 Hypovolemia; K20.90 Esophagitis, unspecified without bleeding; I25.10 Atherosclerotic heart disease of native coronary artery without angina pectoris; R63.4 Abnormal weight loss; Z68.28 Body mass index [BMI] 28.0-28.9, adult
CPT/HCPCS: 88305; 71275; 80048; 80061; 80076; 81003; 82533; 82805; 82962; 83036; 83735; 83880; 83930; 83935; 84132; 84295; 84300; 84443; 84484; 85025; 85027; 85610; 85730; 86803; 87502; 87811; 93005; 93306; 93458; 96361; 96374; 99291; C1894; Q9967

== ENCOUNTER → 2024-03-21 09:30 | Outpatient (REF) | payer OTHER, SELFPAY | LOC: RAD 09:30 | PROVIDERS: ATTENDING PHYSICIAN Nurse Practitioner Family | DX: R13.10 Dysphagia, unspecified (principal); K20.90 Esophagitis, unspecified without bleeding | CPT/HCPCS: 74221 ==

== ENCOUNTER 2024-04-06 19:55 | Inpatient (IN) | payer OTHER, SELFPAY ==
[2024-04-06] VITALS (7 sets, daily range): BP systolic 90–133; BP diastolic 48–64; BMI 26.4; BMI 26.2
[2024-04-06 14:30] LABS: % Basophils 0.8 % (0-2); % Eosinophils 1.4 % (0-6); % Immature Granulocytes 0.5 % (0-0.5); % Lymphocytes 27.1 % (20.5-51.1); % Monocytes 17.1 % (1.7-9.3); % Neutrophils 53.1 % (42.2-75.2); Absolute Basophils 0.1 10^3/uL (0-0.2); Absolute Eosinophils 0.2 10^3/uL (0-0.7); Absolute Immature Granulocytes 0.1 10^3/uL (0-0.05); Absolute Monocytes 1.9 10^3/uL (0.1-0.6); Absolute Neutrophils 5.8 10^3/uL (1.4-6.5); Hematocrit 42.3 % (39.0-52.0); Hemoglobin 15.7 g/dL (13.0-18.0); Mean Corp Hgb Conc. 37.1 g/dL (33.0-37.0); Mean Corpuscular Hgb 29.9 pg (27.0-31.0); Mean Corpuscular Volume 80.6 fL (80.0-94.0); Mean Platelet Volume 11.2 fL (7.4-10.4); Nucleated Red Blood Cells % 0 % (-); Platelet Count 249 10^3/uL (130-400); Red Blood Cell Count 5.25 10^6/uL (4.70-6.10); Red Cell Dist. Width 12.6 % (11.5-14.5); White Blood Cell Count 10.9 10^3/uL (4.8-10.8)
[2024-04-06 14:41] LABS: Blood Urea Nitrogen 46 mg/dl (9-20); Calcium 9.5 mg/dl (8.4-10.2); Carbon Dioxide 33 mmol/L (22-30); Chloride 86 mmol/L (98-107); Estimated Creatinine Clearance 38 ml/min; Glucose 60 mg/dl (70-99); Lipase 66 U/L (23-300); Sodium 127 mmol/L (135-145); eGFR 36.81
--- NOTE | 2024-04-06 15:25 | ED.GENMED ---
History of Present Illness
General
Chief Complaint: Abdominal Symptoms
Time Seen by Provider: 04/06/24 13:58
History of Present Illness
History of Present Illness:
63-year-old male presents to the emergency department for evaluation of persistent current symptoms and intractable vomiting ongoing for the past week. He has had frequent issues with this for the past 5 months, had an endoscopy in December at this
hospital showing severe grade D esophagitis. He was discharged on high-dose PPI, H2 elena, and Carafate which she states he has been compliant with. During that admission patient was also noted to have chest pain and abnormal EKG, underwent
subsequent cardiac to's marginal stenosis but no intervention was taken at that time as it was felt his symptoms were due to GERD. He was started on Plavix during that hospitalization and remains on at this time. Over the past several days any
ingestion of liquids results in severe vomiting and chest discomfort/upper abdominal pain
Past History
Past History
ED Past Medical History: HTN, Hypercholesterolemia and IDDM
ED Past Surgical History: None
Social History
Tobacco: Former smoker
Alcohol: Occasional
Personal:
Living: with family
Employment: Employed
Review of Systems
Review of Systems
Allergies reviewed?: Yes
All Other Systems: ROS reviewed and negative except as documented in HPI and ROS
Phy Exam
Physical Exam
Physical Exam:
GEN: Well appearing, NAD, WDWN
HEENT: Oral mucosa moist, no scleral icterus
Cardiac: Regular rate
Lung: No respiratory distress, no tachypnea
Abdomen: Soft, nontender
MSK: No gross deformity or injuries
Skin: Good color, no pallor or jaundice, no rashes
Neuro: AO x3, moves all extremities freely
Psych: Calm, cooperative
Course
Orders/Labs/Results
Orders:
Orders
04/06/24 14:07
Basic Metabolic Panel Urgent
Complete Blood Count/With Diff Urgent
Lipase Urgent
04/06/24 15:07
Comprehensive Metabolic Panel Urgent
04/06/24 15:27
Famotidine [Pepcid] 20 mg IV NOW STA
Pantoprazole [Protonix IV] 40 mg IV NOW STA
04/06/24 15:29
Add On- LAB Urgent
Tests Added?: serum osmolality
04/06/24 15:45
Dextrose 10%/Water 500 ml [D10w] 150 ml IV 150 mls/hr
Abnormal Lab Results
04/06/24 04/06/24 04/06/24
14:07 15:07 17:41
WBC 10.9 H 10^3/uL
(4.8-10.8)
MCHC 37.1 H g/dL
(33.0-37.0)
MPV 11.2 H fL
(7.4-10.4)
Abs Immat Gran (auto) 0.1 H 10^3/uL
(0-0.05)
Absolute Monos (auto) 1.9 H 10^3/uL
(0.1-0.6)
Monocytes % 17.1 H %
(1.7-9.3)
Sodium 127 L mmol/L 130 L mmol/L
(135-145) (135-145)
Chloride 86 L mmol/L 92 L mmol/L
(98-107) (98-107)
Carbon Dioxide 33 H mmol/L 31 H mmol/L
(22-30) (22-30)
BUN 46 H mg/dl 43 H mg/dl
(9-20) (9-20)
Creatinine 2.0 H mg/dL 1.8 H mg/dL
(0.7-1.3) (0.7-1.3)
Glucose 60 L mg/dl 54 L* mg/dl
(70-99) (70-99)
Total Protein 5.8 L g/dl
(6.3-8.2)
Albumin 3.4 L g/dl
(3.5-5.0)
POC Glucose 111 H mg/dl
(70-99)
04/06/24 14:07
04/06/24 15:07
Vital Signs
Initial and Last Documented VS:
Initial Vital Signs
Temp Pulse Resp BP Pulse Ox
99.5 F 74 16 90/48 99
04/06/24 13:44 04/06/24 13:44 04/06/24 13:44 04/06/24 13:44 04/06/24 13:44
Last Documented Vital Signs
Temp Pulse Resp BP Pulse Ox
99.5 F 64 12 117/50 97
04/06/24 13:44 04/06/24 16:45 04/06/24 16:45 04/06/24 15:00 04/06/24 16:45
MDM/Problems Addressed
MDM/Problems Addressed:
Patient was admitted tonight acute kidney injury likely on the basis of poor p.o. intake/hypovolemia. Prior EGD did show grade D esophagitis and at this point he is maximized on medical therapy and clearly failing. Given how his cellular events
and abnormal labs will admit for further management, PPI started the emergency department. Do not see any occasion for CT at this time
*Critical Care Note
Total Time (30-74mins, 75-104mins- exclusive of procedures): Not Applicable
ED Attending Note
-
Portions of this chart may have been created with voice recognition software.� Occasional wrong word or��sound alike� substitutions may have occurred due to the inherent limitations of voice recognition software.
Discharge Plan
Departure
Patient Disposition: Admit
Date of Disposition: 04/06/24
Time of Disposition: 15:32
Presentation/result/management discussed w/ accepting MD/DO: Hospitalist
Discharge Problem:
Esophagitis, Acute kidney injury, Acute hyponatremia
Prescriptions:
No Action
atorvastatin 40 mg Tablet
40 mg PO DAILY
therapeutic multivitamin Tablet
1 tab PO DAILY
fexofenadine 180 mg Tablet
180 mg PO DAILY
aspirin 81 mg Tablet,Delayed Release (Dr/Ec)
81 mg PO DAILY
insulin aspart U-100 100 unit/mL Solution
0 unit SC .VIA PUMP
Patient Comments:
01/21/2024, pt. changes his insulin Q7D; last changed on Monday (01/19/2024); pt. places 300 units in pump and there is roughly 5-10 units left in pump when he changes it out; pt. gets bolus when he eats carbs.
ezetimibe 10 mg Tablet
10 mg PO DAILY
carvedilol 6.25 mg Tablet
6.25 mg PO BID Qty: 60 0RF
sucralfate 100 mg/mL Suspension
1 gm PO ACHS Qty: 3 0RF
clopidogrel 75 mg Tablet
75 mg PO DAILY Qty: 30 0RF
amlodipine 5 mg Tablet
5 mg PO DAILY Qty: 30 0RF
famotidine 20 mg Tablet
20 mg PO HS Qty: 30 0RF
pantoprazole [Protonix] [address] for susp in packet
40 mg PO BID Qty: 60 1RF
losartan-hydrochlorothiazide 100-12.5 mg tablet
1 tab PO DAILY
ranolazine 500 mg tablet extended release 12 hr
500 mg PO BID
Trelegy Ellipta 200-62.5-25 mcg blister with device
1 inh INHALATION R DAILY
Referrals:
Maria Del Carmen Davidson PA-C [Family Provider] -
Interventions
Interventions:
*Risk Screen - Suicide Last Done: 04/06/24 13:48
*General Assessment Last Done: 04/06/24 13:48
*Neglect/Abuse Screening Last Done: 04/06/24 13:48
ED- Fall Risk Assessment Last Done: 04/06/24 13:56
*ED COVID-19 Vaccine History Last Done: 04/06/24 13:56
ZD-Myohrg-Tuebtgckbs Assessment Last Done: 04/06/24 13:56
Discharge Date and Time
Print Language: ANGOLAN
[2024-04-06] MEDS: PROTONIX IV 40 MG IV (15:35)
[2024-04-06] MEDS: PEPCID 20 MG IV (15:35)
[2024-04-06 15:39] LABS: ALT (SGPT) 18 U/L (0-50); AST (SGOT) 18 U/L (17-59); Albumin 3.4 g/dl (3.5-5.0); Alkaline Phosphatase 88 U/L (38-126); Blood Urea Nitrogen 43 mg/dl (9-20); Calcium 8.7 mg/dl (8.4-10.2); Carbon Dioxide 31 mmol/L (22-30); Chloride 92 mmol/L (98-107); Estimated Creatinine Clearance 42 ml/min; Glucose 54 mg/dl (70-99); Potassium 3.6 mmol/L (3.5-5.1); Sodium 130 mmol/L (135-145); Total Bilirubin 0.9 mg/dl (0.2-1.3); Total Protein 5.8 g/dl (6.3-8.2); eGFR 41.77
[2024-04-06] MEDS: D10W 150 IV (15:51)
[2024-04-06 17:43] LABS: Glucose - Point of Care 111 mg/dl (70-99)
--- NOTE | 2024-04-06 19:32 | HPS.HSE ---
Addendum entered and electronically signed by Shahid Arevalo MD 04/07/24 18:58:
Correction:
HX NSTEMI in December : <del>No</del> <del>cardiac</del> <del>cath</del>
PS: He underwent LH catheterization on January 21, which showed coronary artery disease involving moderate to large caliber first obtuse marginal branch with stenosis of 70%-80%, which was not treated and then at that time, given the patient was
continuing to have atypical chest pain during the procedure.
- held DAPL due to intractable vomiting
Addendum entered and electronically signed by Shahid Arevalo MD 04/06/24 21:34:
EKG reviewed by me: NSR, inverted T wave in I and aVL lateral leads new compare to 01/23/24 EKG
NEG first TPNI
HX NSTEMI in December
- Currently holding DAPL and Ramoplanin due to severe dyspesis and vomiting
- currently CP free
- trend TPNI
- repeat EKG in AM
- Card consult for AM
Addendum entered and electronically signed by Shahid Arevalo MD 04/06/24 20:11:
Addendum:
Held RANOLAZINE due to GI ADEs such as dyspepsia (<4%), nausea (4%), vomiting (<4% for now
Original Note:
Family Physician
-
Family Physician: Maria Del Carmen Davidson
Chief Complaint
-
intractable vomiting
History of Present Illness
HPI
63M HX Esophagitis/GERD, T1DM, HTN seen at ER for evalaution of intractable vomiting
- for 1 weeks
- it is frequent intermittent issues for 5 months
- EGD during Admission in December severe grade D esophagitis discharged on high-dose PPI, H2 elena, and Carafate
- reports compliance with above antacid regime
- currently on Plvix since December for NSTEMI with peak troponin of 0.2
- Over the past several days, intolerence even to ingestion of liquids results in severe vomiting
- with chest discomfort/upper abdominal pain
Medical History
Past Medical History
Past Medical History: Reports HTN, Hypercholesterolemia and IDDM
Past Surgical History: Reports None
Social History
Tobacco: Former Smoker
Alcohol: Occasional
Drug: None
Family History
Family History: Not pertinent
Allergies / Home Medications
Allergies reflects when Allergies were last updated in [email or web address].
Home Medications with original date entered in [email or web address]
Allergy/Medication List:
Allergies
Allergy/AdvReac Type Severity Reaction Status Date / Time
Sulfa (Sulfonamide Allergy Intermediate Itching, Verified 04/06/24 13:44
Antibiotics) hives
Home Medications
aspirin 81 mg tablet,delayed release 81 mg PO DAILY Blood Clot Prevention/Tx 01/21/24
atorvastatin 40 mg tablet 40 mg PO DAILY High Cholesterol 01/21/24
ezetimibe 10 mg tablet 10 mg PO DAILY High Cholesterol 01/21/24
fexofenadine 180 mg tablet 180 mg PO DAILY Allergies 01/21/24
insulin aspart U-100 100 unit/mL subcutaneous solution 0 unit SC .VIA PUMP Diabetes 01/21/24
therapeutic multivitamin 1 tab PO DAILY Supplement 01/21/24
amlodipine 5 mg tablet 5 mg PO DAILY #30 tabs 01/24/24
carvedilol 6.25 mg tablet 6.25 mg PO BID #60 tabs 01/24/24
clopidogrel 75 mg tablet 75 mg PO DAILY #30 tabs 01/24/24
famotidine 20 mg tablet 20 mg PO HS #30 tabs 01/24/24
pantoprazole 40 mg granules delayed-release for susp in packet (Protonix) 40 mg PO BID #60 ea 01/24/24
sucralfate 100 mg/mL oral suspension 1 gm PO ACHS #3 mL 01/24/24
fluticasone fur. 200 mcg-umeclid 62.5 mcg-vilant 25 mcg inhalat.powder (Trelegy Ellipta) 1 inh inhalation R DAILY 04/06/24
losartan 100 mg-hydrochlorothiazide 12.5 mg tablet 1 tab PO DAILY 04/06/24
ranolazine 500 mg tablet,extended release,12 hr 500 mg PO BID 04/06/24
Review of Systems
-
Constitutional: Reports No Symptoms
EENT: Reports No Symptoms
Respiratory: Reports No Symptoms
Cardiac: Reports No Symptoms
Abdomen/GI: Reports Abdominal Pain, Nausea and Vomiting; Denies Black Stools
: Reports No Symptoms
Musculoskeletal: Reports No Symptoms
Skin: Reports No Symptoms
Neurological: Reports No Symptoms
Endocrine: Reports No Symptoms
Hematologic/Lymphatic: Reports No Symptoms
Psych: Reports No Symptoms
Physical Exam
Vital Signs
Vital Signs
Temp Pulse Resp BP Pulse Ox
99.5 F 68 13 117/50 97
04/06/24 13:44 04/06/24 18:45 04/06/24 18:45 04/06/24 15:00 04/06/24 18:45
Physical Exam
General: Well Developed, Well Nourished, No Apparent Distress, Comfortable and Conversant
HEENT: NormoCephalic and Anicteric; No Moist mucous membranes (dry)
Respiratory: Clear; No Wheezes, Rales or Rhonchi
Cardiac: S1/S2 and Regular Rhythm; No Tachycardia (on carvedilol )
GI: Soft, Non Tender, Non Distended and Normal Bowel Sounds
Rectal: Deferred by Provider
Genito-urinary: Deferred by me
Musculoskeletal: No Edema
Skin: Warm and Dry
Neuro: AO x 3 and Nonfocal/grossly intact
Psych: Calm and Intact Judgment/Insight
Laboratory Results
-
04/06/24 14:07
04/06/24 15:07
Laboratory Results
Total Bilirubin 0.9 mg/dl (0.2-1.3) 04/06/24 15:07
AST 18 U/L (17-59) 04/06/24 15:07
ALT 18 U/L (0-50) 04/06/24 15:07
Alkaline Phosphatase 88 U/L (38-126) 04/06/24 15:07
Lipase 66 U/L (23-300) 04/06/24 14:07
Data Reviewed
-
Lab Data: Labs Reviewed by me
Old Records: Reviewed
Impression/Plan
-
Reviewed VS: T 99.5 BP as low as 90/48 --> 117/50
Data
WCC 10.9
Hgb 15.7 - was 14.8 on 01/24/24 - suspect hemoconcentrated
Na 130
Cl 92
CO2 31
BUN 43
Cr 2.0 --> 1.8 - baseline 0.8
Nl LFTs
Alb 3.4
BG 60 --> 54
01/21/24 EGD
- LA Grade D acute esophagitis with no bleeding.
- Gastritis.
- Normal examined duodenum.
- Increase PPI to twice daily. Carafate QID. Repeat
- EGD in 2 months. Office follow-up with Dr. Benavides.
Last hospitalist admission: 01/20- 01/24/24
DISCHARGE DIAGNOSES:
1. Non ST-elevation myocardial infarction with peak troponin of 0.2.
2. Hypovolemic hyponatremia.
3. Orthostatic hypotension.
4. Esophagitis.
5. Type 1 diabetes. Patient is on insulin pen.
6. Recent respiratory tract infection.
ASSESSMENT & PLAN
Intractable vomiting complicated with dehydration and pre renal JAY
Etiology vomiting ? Esophagitis / esophageal erosions
Current Hgb 15.7 seems hemoconcentrated
HX LA Grade D acute esophagitis with no bleeding and Gastritis per December EGD
- IV D5NS
- IV PPI daily
- held ASA and Plavix and trend Hgb following fluid resuscitation
- last dose of Plavix was 8am 04/06/24
- GI consult ? f/u EGD as plan in December
Pre renal JAY
Hypotension due to Hypovolemia
HX essential HTN
- Held carvedilol , Amlodipine, Losartan - HCTZ
- trend Cr with volume resuscitation
Hypovolemic Hyponatremia
- stop HCTZ
- trend Na with IVF
Hypoglycemic due to relative overmedication with insulin while interval drop in GFR
DM 1
- Held own insulin pump
- add ISS low for now
HX NSTEMI in December : No cardiac cath
- held DAPL due to intractable vomiting
- check TPNI
DVT Px: SCD
Code: Full code
IP TLM
[2024-04-06 20:46] LABS: Troponin I < 0.012 ng/ml
[2024-04-06 21:40] LABS: Glucose - Point of Care 83 mg/dl (70-99)
[2024-04-06] MEDS: CARAFATE SUSPENSION 1 GM PO (21:55)
[2024-04-06] MEDS: D5/0.9% SODIUM CHLORIDE 1000 IV (21:55)
[2024-04-07 03:34] LABS: Glucose - Point of Care 315 mg/dl (70-99)
[2024-04-07 03:45] VITALS: BP 104/50
[2024-04-07] MEDS: NSS 1000 IV ×3 (03:47→23:00)
[2024-04-07 06:00] VITALS: BMI 26.2
[2024-04-07 07:25] VITALS: BP 121/52
[2024-04-07 07:33] LABS: Hematocrit 38.4 % (39.0-52.0); Hemoglobin 13.9 g/dL (13.0-18.0); Mean Corp Hgb Conc. 36.2 g/dL (33.0-37.0); Mean Corpuscular Hgb 30.1 pg (27.0-31.0); Mean Corpuscular Volume 83.1 fL (80.0-94.0); Mean Platelet Volume 11.4 fL (7.4-10.4); Platelet Count 218 10^3/uL (130-400); Red Blood Cell Count 4.62 10^6/uL (4.70-6.10); Red Cell Dist. Width 12.7 % (11.5-14.5)
[2024-04-07 07:46] LABS: Troponin I < 0.012 ng/ml
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
[2024-04-07 07:51] LABS: Blood Urea Nitrogen 35 mg/dl (9-20); Calcium 8.5 mg/dl (8.4-10.2); Carbon Dioxide 18 mmol/L (22-30); Chloride 93 mmol/L (98-107); Estimated Creatinine Clearance 50 ml/min; Glucose 306 mg/dl (70-99); Potassium 4.3 mmol/L (3.5-5.1); Sodium 127 mmol/L (135-145); eGFR 51.99
[2024-04-07] MEDS: SYMBICORT 160/4.5 MCG INHALER 2 PUFF INH ×2 (08:08→19:45)
[2024-04-07] MEDS: SPIRIVA RESPIMAT 2.5 MCG 2 PUFF INH (08:09)
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
[2024-04-07] MEDS: CARAFATE SUSPENSION 1 GM PO ×4 (08:57→22:49)
[2024-04-07] MEDS: PROTONIX IV 40 MG IV (08:57)
[2024-04-07] MEDS: NSS (PRESERVATIVE FREE) 10 ML IV (08:57)
[2024-04-07 09:02] LABS: Glucose - Point of Care 304 mg/dl (70-99)
[2024-04-07] MEDS: FLUSH (NSS) 1 FLUSH IV (09:05)
[2024-04-07] MEDS: NOVOLOG FLEXPEN-LOW RESISTANCE 4 UNITS SC ×2 (09:25→12:19)
[2024-04-07 09:33] LABS: Glycohemoglobin (HgbA1c) 8.1 % (4.0-5.6)
[2024-04-07 11:00] VITALS: BP 127/59
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
[2024-04-07 11:35] LABS: Glucose - Point of Care 323 mg/dl (70-99)
[2024-04-07] MEDS: COREG 6.25 MG PO ×2 (12:19→20:57)
[2024-04-07 15:00] VITALS: BP 108/63; BP 116/47; BP 119/46; BP 91/63; PULSE 110; PULSE 83; PULSE 97
[2024-04-07 16:19] LABS: Urine Albumin Negative (Neg - Trace); Urine Bilirubin Negative (Negative); Urine Character Clear (Clear); Urine Color Yellow; Urine Glucose 3+ (Negative); Urine Ketone 3+ (Negative); Urine Leukocyte Negative (Negative); Urine Nitrite Negative (Negative); Urine Occult Blood Negative (Negative); Urine Specific Gravity 1.015 (<1.030); Urine Urobilinogen Negative (Neg - 1+)
[2024-04-07 16:22] LABS: Osmolality Urine 487 mOsm/kg (300-900)
[2024-04-07 17:33] LABS: Glucose - Point of Care 250 mg/dl (70-99)
[2024-04-07] MEDS: LIPITOR 40 MG PO (17:51)
[2024-04-07] MEDS: NOVOLOG FLEXPEN-LOW RESISTANCE 3 UNITS SC (17:52)
[2024-04-07 19:48] VITALS: BP 122/52
[2024-04-07 22:48] LABS: Glucose - Point of Care 268 mg/dl (70-99)
[2024-04-07 23:54] VITALS: BP 118/42
[2024-04-08 03:15] VITALS: BP 110/52
[2024-04-08 04:58] LABS: Protein/creatinine Ratio 0.4; Urine Protein 18 mg/dl
[2024-04-08 06:00] VITALS: BMI 26.2
[2024-04-08 06:13] LABS: Glucose - Point of Care 312 mg/dl (70-99)
[2024-04-08] MEDS: NOVOLOG FLEXPEN-LOW RESISTANCE 4 UNITS SC (06:32)
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
[2024-04-08 08:00] VITALS: BP 119/55
[2024-04-08] MEDS: SPIRIVA RESPIMAT 2.5 MCG 2 PUFF INH (08:04)
[2024-04-08] MEDS: SYMBICORT 160/4.5 MCG INHALER 2 PUFF INH ×2 (08:04→20:36)
[2024-04-08] MEDS: CARAFATE SUSPENSION 1 GM PO ×3 (08:18→21:23)
[2024-04-08] MEDS: NSS (PRESERVATIVE FREE) 10 ML IV (08:18)
[2024-04-08] MEDS: LOW STRENGTH ASPIRIN 81 MG PO (08:18)
[2024-04-08] MEDS: FLUSH (NSS) 1 FLUSH IV (08:19)
[2024-04-08] MEDS: PROTONIX IV 40 MG IV (08:19)
[2024-04-08] MEDS: COREG 6.25 MG PO ×2 (08:25→21:22)
[2024-04-08 08:26] LABS: Hematocrit 37.8 % (39.0-52.0); Hemoglobin 13.3 g/dL (13.0-18.0); Mean Corp Hgb Conc. 35.2 g/dL (33.0-37.0); Mean Corpuscular Hgb 29.8 pg (27.0-31.0); Mean Corpuscular Volume 84.8 fL (80.0-94.0); Mean Platelet Volume 10.8 fL (7.4-10.4); Platelet Count 220 10^3/uL (130-400); Red Blood Cell Count 4.46 10^6/uL (4.70-6.10); White Blood Cell Count 8.7 10^3/uL (4.8-10.8)
[2024-04-08 08:51] LABS: NT-proBNP 403 pg/ml
[2024-04-08 08:55] LABS: Blood Urea Nitrogen 26 mg/dl (9-20); Calcium 8.5 mg/dl (8.4-10.2); Carbon Dioxide 12 mmol/L (22-30); Chloride 101 mmol/L (98-107); Estimated Creatinine Clearance 58 ml/min; Glucose 294 mg/dl (70-99); Potassium 4.8 mmol/L (3.5-5.1); Sodium 131 mmol/L (135-145); eGFR > 60.00
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
[2024-04-08] MEDS: SODIUM BICARBONATE 50 MEQ IV (09:48)
[2024-04-08] MEDS: SODIUM BICARBONATE 1150 MEQ IV ×2 (09:49→21:08)
[2024-04-08] MEDS: NOVOLOG FLEXPEN-LOW RESISTANCE SC (13:26)
[2024-04-08] MEDS: CARAFATE SUSPENSION PO (13:26)
[2024-04-08 15:19] VITALS: BMI 26.2
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
[2024-04-08 15:50] VITALS: BP 127/76; BP 138/58; BP 154/71; PULSE 104; PULSE 83; PULSE 98
--- NOTE | 2024-04-08 16:10 | W.PN.GI.CBS2 ---
Addendum entered and electronically signed by Jennifer Garduno MD 04/08/24 18:14:
-Addendum-gastric emptying study showing greater than 80% activity in the stomach at 120 minutes, normal less than 30%. Findings suggesting gastroparesis.
Original Note:
Today's Communication / Plan
-
-Persistent nausea/vomiting, odynophagia, upper endoscopy January 2024 with grade 4 esophagitis.
Recent esophagram showing mild presbyesophagus but otherwise unremarkable
History of IDDM and elevated hemoglobin A1c, cannot rule out diabetic gastroparesis exacerbating symptoms.
-Currently on PPI twice a day and Carafate twice a day as outpatient but increased to 4 times a day in the hospital
Await GE study
OK for low res /low fat diet
Monitor electrolytes and replete as needed.
He will also need upper endoscopy to evaluate healing of esophagitis, last Plavix dose was 04/05/2024, possible repeat EGD 04/10/2024.
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
-Dx on EGD with Dr. Benavides in 2019, irregular Z-line
-reports compliance with daily PPI
-Due for surveillance now
-History of colon polyps
-2x TA on colonoscopy (2019), repeat in 5 years for surveillance
-Due 07/2025
Assessment / Plan
-
63 y.o. male w/ pmhx HTN, DM1, HLD, nondysplastic BE admitted to on 01/20 with complaints of intermittent chest pain admitted with NSTEMI s/p [facility] with findings of nonobstructive CAD. GI is consulted for persistent nausea/vomiting, odynophagia, he
has had pyrosis and anorexia following consumption of hot soup November 2023.
-Persistent nausea/vomiting, odynophagia, upper endoscopy January 2024 with grade 4 esophagitis.
Recent esophagram showing mild presbyesophagus but otherwise unremarkable
History of IDDM and elevated hemoglobin A1c, cannot rule out diabetic gastroparesis exacerbating symptoms.
-Currently on PPI twice a day and Carafate twice a day as outpatient but increased to 4 times a day in the hospital
Await GE study
OK for low res /low fat diet
Monitor electrolytes and replete as needed.
He will also need upper endoscopy to evaluate healing of esophagitis, last Plavix dose was 04/05/2024, possible repeat EGD 04/10/2024.
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
-Dx on EGD with Dr. Benavides in 2019, irregular Z-line
-reports compliance with daily PPI
-Due for surveillance now
-History of colon polyps
-2x TA on colonoscopy (2019), repeat in 5 years for surveillance
-Due 07/2025
Subjective
Subjective
Date of Service: April 08, 2024
Pt reports dry mouth, otw was able to tolerate the toast and egg at the GE study, no BM yet
Objective
Data Reviewed
Laboratory Data:
Laboratory Results
04/08/24 08:01
Laboratory Results
Total Bilirubin 0.9 mg/dl (0.2-1.3) 04/06/24 15:07
AST 18 U/L (17-59) 04/06/24 15:07
ALT 18 U/L (0-50) 04/06/24 15:07
Alkaline Phosphatase 88 U/L (38-126) 04/06/24 15:07
Lipase 66 U/L (23-300) 04/06/24 14:07
Vital Signs and I&O:
Vital Signs
Temp Pulse Resp BP Pulse Ox
98.1 F 83 18 138/58 97
04/08/24 15:50 04/08/24 15:50 04/08/24 15:50 04/08/24 15:50 04/08/24 15:50
I&O
04/07/24 04/08/24 04/09/24
06:59 06:59 06:59
Intake Total 1919
Output Total 275 / 275 4730 / 4730
Balance -275 / -275 -2810 / -2810
Physical Exam
Physical Exam
GI: Soft, Non Distended and Non Tender
[2024-04-08 16:21] LABS: Blood Urea Nitrogen 27 mg/dl (9-20); Calcium 8.7 mg/dl (8.4-10.2); Carbon Dioxide 15 mmol/L (22-30); Chloride 96 mmol/L (98-107); Estimated Creatinine Clearance 58 ml/min; Glucose 376 mg/dl (70-99); Potassium 5.4 mmol/L (3.5-5.1); Sodium 132 mmol/L (135-145); eGFR > 60.00
--- NOTE | 2024-04-08 16:35 | CM ---
Patient seen bedside, initial assessment completed. Patient resides in a two story home with his , daughter, and grandchildren. Patient denies DME, VN, or SNF. Patient PCP Stew Davidson, [facility]. Patient confirms prescription
coverage, denies food insecurities, housing/utility, and transportation insecurities. CM will continue to follow for all discharge planning needs.
Plan; home no needs.
[2024-04-08 16:47] LABS: Glucose - Point of Care 410 mg/dl (70-99)
[2024-04-08 17:13] LABS: Glucose 393 mg/dl (70-99)
[2024-04-08] MEDS: LIPITOR 40 MG PO (17:17)
[2024-04-08] MEDS: NOVOLOG FLEXPEN 10 UNITS SC (17:18)
[2024-04-08] MEDS: LANTUS 0.1 UNITS SC ×2 (17:18→21:23)
[2024-04-08 19:34] VITALS: BP 122/50
[2024-04-08 19:43] LABS: Hepatitis C Antibody Negative (Negative)
[2024-04-08 20:36] LABS: Glucose - Point of Care 377 mg/dl (70-99)
[2024-04-08 23:50] VITALS: BP 123/52
[2024-04-09] VITALS (10 sets, daily range): BP systolic 88–144; BP diastolic 46–60; PULSE 70–81; O2SAT 94–96; BMI 26.5
[2024-04-09 06:10] LABS: Urine Albumin Negative (Neg - Trace); Urine Bilirubin Negative (Negative); Urine Character Clear (Clear); Urine Color Yellow; Urine Glucose 3+ (Negative); Urine Ketone 3+ (Negative); Urine Leukocyte Negative (Negative); Urine Nitrite Negative (Negative); Urine Occult Blood Negative (Negative); Urine Urobilinogen Negative (Neg - 1+)
[2024-04-09 07:15] LABS: Glucose - Point of Care 200 mg/dl (70-99)
[2024-04-09 07:24] LABS: Hematocrit 32.9 % (39.0-52.0); Hemoglobin 12.1 g/dL (13.0-18.0); Mean Corp Hgb Conc. 36.8 g/dL (33.0-37.0); Mean Corpuscular Hgb 30.6 pg (27.0-31.0); Mean Corpuscular Volume 83.3 fL (80.0-94.0); Mean Platelet Volume 10.2 fL (7.4-10.4); Platelet Count 206 10^3/uL (130-400); Red Blood Cell Count 3.95 10^6/uL (4.70-6.10); Red Cell Dist. Width 12.9 % (11.5-14.5); White Blood Cell Count 10.2 10^3/uL (4.8-10.8)
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
[2024-04-09 08:11] LABS: Blood Urea Nitrogen 23 mg/dl (9-20); Calcium 8.1 mg/dl (8.4-10.2); Carbon Dioxide 23 mmol/L (22-30); Chloride 94 mmol/L (98-107); Estimated Creatinine Clearance 76 ml/min; Glucose 191 mg/dl (70-99); Magnesium 2.1 mg/dl (1.6-2.3); Potassium 3.8 mmol/L (3.5-5.1); Sodium 130 mmol/L (135-145); eGFR > 60.00
[2024-04-09] MEDS: SPIRIVA RESPIMAT 2.5 MCG 2 PUFF INH (08:26)
[2024-04-09] MEDS: SYMBICORT 160/4.5 MCG INHALER 2 PUFF INH ×2 (08:27→20:16)
[2024-04-09] MEDS: CARAFATE SUSPENSION 1 GM PO ×4 (09:41→21:12)
[2024-04-09] MEDS: NOVOLOG FLEXPEN-MODERATE RESISTANCE 3 UNITS SC ×2 (09:42→18:11)
[2024-04-09] MEDS: LOW STRENGTH ASPIRIN 81 MG PO (09:42)
[2024-04-09] MEDS: COREG 6.25 MG PO ×2 (09:43→21:12)
[2024-04-09] MEDS: PROTONIX IV 40 MG IV ×2 (09:43→21:12)
[2024-04-09] MEDS: NSS (PRESERVATIVE FREE) 10 ML IV ×2 (09:44→21:12)
[2024-04-09] MEDS: SODIUM BICARBONATE 1150 MEQ IV (09:44)
[2024-04-09] MEDS: NOVOLOG FLEXPEN 4 UNITS SC ×3 (09:45→18:10)
--- NOTE | 2024-04-09 10:28 | PN.DE.MGMTRT ---
Insulin Management
- -
04/09/2024 Diabetes Management Consult
Patient admitted 04/06 with intractable vomiting for 1 week. PMH HTN, HCL, type 1 diabetes. Prior to admission patient was using the Medtronic 780 with Guardian Sensor, and novolog insulin. He is followed by Dr. Bautista endocrine @ [facility].
Patient known to me from previous admission. Pump was removed on admission and sent home. A1C 8.1%, cr 1, eGFR >60.
Patient ordered corrective insulin and lantus 20 units @ HS once.
Patient received 20 units lantus @ HS, fasting glucose this AM 200. Will add 4 units novolog AC (first dose now as patient had breakfast) with moderate corrective insulin.
Patient is awake, alert and oriented resting in bed. He reports appetite good, had breakfast.
Patient states someone can bring his pump and supplies later today. Will not order HS lantus, patient to resume pump. He states he saw his portable track crew chief in March, changes MAY have been made to this pump settings. Will check pump settings when
pump is brought in.
Discussed with patients nurse to give one time dose of novolog now and pump may resume when it is brought in.
Diabetes History
- -
Type of Diabetes: 1
Pre-Admission Diabetes Regimen
04/08/24 04/08/24 04/09/24
15:58 22:00 07:13
Creatinine 1.3 Cancelled 1.0
Lab Results
Hemoglobin A1c 8.1 % (4.0-5.6) H 04/07/24 06:39
Insulin Pump Settings
IP Diabetes Regimen
04/08/24 04/08/24 04/08/24
15:58 16:43 16:54
Glucose 376 H 393 H
POC Glucose 410 H
04/08/24 04/08/24 04/09/24
20:34 22:00 07:13
Glucose Cancelled 191 H
POC Glucose 377 H
04/09/24
07:14
Glucose
POC Glucose 200 H
Meal type: Lunch
Patient Education
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
--- NOTE | 2024-04-09 11:56 | W.PN.GI.CBS2 ---
Addendum entered and electronically signed by Laura Byrnes DO 04/09/24 17:34:
Patient seen and examined independently of SHAHZAD. I agree with her note with my additions below
Fer is a 63-year-old male with history of diabetes on insulin pump with a hemoglobin A1c of 8.2, hypertension who states he had no issues until October when he was on a cruise and ingested scalding hot soup. He states 2 days later he started
having symptoms. No prior dysphagia or odynophagia prior to that. I reviewed his history over the past few months. He states that on most days he is able to eat and drink without issue but always has underlying sensation of tightening and
thickness in the throat and substernal area roughly every 2 months it flares up. Initially starts with nausea then vomiting. This can occur 5 to 6 hours after a meal and just this admission woke him from sleep around 3 AM he believes what he ate
came up undigested but he is not sure. Did not have persistent dry heaving and the nausea went away but felt unable to eat or drink. That is brought him to the hospital couple of times with his last episode in December when he was seen and had an
endoscopy showing grade D esophagitis and suspected Alcazar's. I reviewed the pathology which shows active esophagitis with ulceration and granulation reaction that was negative for CMV and HSV. His previous endoscopy with Dr. Benavides in 2019 did
show Alcazar's esophagus, negative for dysplasia.
He has been compliant with PPI. He does use marijuana for occasional anxiety sleep and says he uses it a few times a week but not daily. Yesterday he underwent a gastric emptying study which was positive for gastroparesis.. On 03/21/2024 he had an
esophagram showing mild presbyesophagus otherwise normal. No hiatal hernia or significant reflux. No mucosal ulceration or evidence of mass.
Patient has been on Plavix for recent NSTEMI with nonobstructive CAD and no stenting was placed. Being medically managed with Plavix and medications.
Plan: Repeat EGD tomorrow. If it is completely normal we will suggest outpatient esophageal manometry and pH impedance testing
Perhaps he has diabetic induced gastroparesis and now questionably visceral hypersensitivity
Original Note:
Today's Communication / Plan
-
Low residue, gastroparesis diet. Continue PPI and Carafate. EGD tentatively 04/10.
Assessment / Plan
-
63 y.o. male w/ pmhx HTN, DM1, HLD, nondysplastic BE admitted to previously on 01/20 with complaints of intermittent chest pain admitted with NSTEMI s/p [facility] with findings of nonobstructive CAD. GI was consulted at that time for persistent
nausea/vomiting, odynophagia, he has had pyrosis and anorexia following consumption of hot soup Janaury 2023. Underwent EGD at that time with showed LA Grade D esophagitis. Also has history of Alcazar's Esophagus. Was seen outpatient by our nurse
practitioner Kelley Suggs posthospitalization in December, with ongoing symptoms. He underwent an esophagram which showed mild presbyesophagus otherwise was normal, and was awaiting clearance from cardiology to undergo an EGD on outpatient basis.
He then presented to ED on 04/06/2024 with persistent nausea, vomiting, and odynophagia. He underwent further evaluation with gastric emptying study which does confirm gastroparesis with 70% of contents retained at the 4-hour roslyn. He does have
some difficulty controlling his blood sugars outpatient and they have been variable here in the hospital as well. His hemoglobin A1c is 8.2 on most recent labs. Currently he is tolerating his diet and has no overt GI complaints.
Problem list/Recommendations:
#1) Persistent nausea/vomiting, odynophagia, upper endoscopy January 2024 with LA grade D esophagitis.
----Recent esophagram showing mild presbyesophagus but otherwise unremarkable. History of IDDM and elevated hemoglobin A1c, cannot rule out diabetic gastroparesis exacerbating symptoms.
-Continue PPI BID and Carafate
-Anti-reflux diet/measures
-GES as above. Recommend EGD for further evaluation given his recurrent/ongoing symptoms, tentatively 04/10 after plavix washout
-OK for low res /low fat diet and NPO after MN
-Avoid/limit alcohol and NSAID's
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
-Dx on EGD with Dr. Benavides in 2019, irregular Z-line
-Reports compliance with daily PPI
-Due for surveillance now, will bx on EGD
#3) Esophagitis
-Plan as above
#4) Gastroparesis, see on GES, likely contributing to symptoms
-Advised on small, frequent meals throughout the day
-lower insoluble fiber, low residue diet
-Maintain adequate hydration
-strict glycemic control
-Consider other agents such as Reglan, erythromycin, if symptoms cannot be controlled but currently he is without nausea/vomiting
-Up to date handout provided to patient about Gastroparesis.
Other pertinent medical hx:
-History of colon polyps
-2x TA on colonoscopy (2019), repeat in 5 years for surveillance
-Due 07/2025
Subjective
Subjective
Date of Service: April 09, 2024
Patient was seen and evaluated at the bedside.
Denied any new complaints today.
Gastric emptying study reviewed and showed evidence of gastroparesis.
No nausea, vomiting or abdominal pain today.
Patient states that his blood glucose has been difficult to control at home.
Tolerating diet.
Objective
Data Reviewed
Laboratory Data:
Laboratory Results
04/09/24 07:13
04/09/24 07:13
Laboratory Results
Phosphorus 2.0 mg/dl (2.5-4.5) L 04/09/24 07:13
Magnesium 2.1 mg/dl (1.6-2.3) 04/09/24 07:13
Total Bilirubin 0.9 mg/dl (0.2-1.3) 04/06/24 15:07
AST 18 U/L (17-59) 04/06/24 15:07
ALT 18 U/L (0-50) 04/06/24 15:07
Alkaline Phosphatase 88 U/L (38-126) 04/06/24 15:07
Lipase 66 U/L (23-300) 04/06/24 14:07
Vital Signs and I&O:
Vital Signs
Temp Pulse Resp BP Pulse Ox
97.4 F 73 18 114/60 98
04/09/24 11:14 04/09/24 11:14 04/09/24 11:14 04/09/24 11:14 04/09/24 11:14
I&O
04/08/24 04/09/24 04/10/24
06:59 06:59 06:59
Intake Total 1920 / 1920 2760 / 2760
Output Total 4730 / 4730 2355 / 2355
Balance -2810 / -2810 405 / 405
Labs reviewed.
Physical Exam
Physical Exam
HEENT: Moist mucous membranes and No Lymphadenopathy
Cardiology: Normal Sinus Rhythm
Pulmonary: Clear
GI: Soft, Non Distended, Non Tender and Normal Bowel Sounds
Extremities: No Edema and Warm
[2024-04-09 12:10] LABS: Glucose - Point of Care 278 mg/dl (70-99)
[2024-04-09] MEDS: POTASSIUM PHOSPHATE 259.0909 MEQ IV (12:11)
[2024-04-09] MEDS: NOVOLOG FLEXPEN-MODERATE RESISTANCE 5 UNITS SC (12:25)
--- NOTE | 2024-04-09 13:21 | CM ---
Patient seen bedside, reports no needs at this time. CM offered VN to patient as PT recommending HH, patient declines, patient reports he is not home bound. CM will continue to follow for all discharge planning needs.
Plan; home no needs anticipated.
[2024-04-09 17:08] LABS: Glucose - Point of Care 217 mg/dl (70-99)
[2024-04-09] MEDS: LIPITOR 40 MG PO (18:05)
[2024-04-09] MEDS: FLUSH (NSS) 1 FLUSH IV (21:12)
[2024-04-09 21:38] LABS: Glucose - Point of Care 126 mg/dl (70-99)
[2024-04-09] MEDS: PT'S OWN INSULIN PUMP - NovoLOG 2.7 UNIT SC (21:39)
[2024-04-10] VITALS (10 sets, daily range): BP systolic 15–156; BP diastolic 62–87; PULSE 66; O2SAT 97; BMI 26.6
[2024-04-10] MEDS: DEXTROSE 50% SYRINGE 12.5 GRAMS IV (04:17)
--- NOTE | 2024-04-10 04:29 | PTCARENOTE ---
Addendum entered by Karishma Vaughn RN 04/10/24 04:38:
Repeat accu check 109. Pt asymptomatic. Plan of care ongoing.
Original Note:
Patient's insulin pump alarming; reading 50. Pt asymptomatic. Pt states he will put the insulin pump on hold. Accu check 49. Dextrose administered. See MAR.
[2024-04-10 04:37] LABS: Glucose - Point of Care 109 mg/dl (70-99)
[2024-04-10] MEDS: PT'S OWN INSULIN PUMP - NovoLOG SC ×2 (06:00→09:04)
[2024-04-10 06:01] LABS: Glucose - Point of Care 130 mg/dl (70-99)
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
[2024-04-10 07:53] LABS: Hematocrit 34.1 % (39.0-52.0); Hemoglobin 12.1 g/dL (13.0-18.0); Mean Corp Hgb Conc. 35.5 g/dL (33.0-37.0); Mean Corpuscular Hgb 29.7 pg (27.0-31.0); Mean Corpuscular Volume 83.6 fL (80.0-94.0); Mean Platelet Volume 10.4 fL (7.4-10.4); Platelet Count 202 10^3/uL (130-400); Red Blood Cell Count 4.08 10^6/uL (4.70-6.10); White Blood Cell Count 7.1 10^3/uL (4.8-10.8)
--- NOTE | 2024-04-10 08:02 | PN.DE.MGMTRT ---
Insulin Management
- -
04/10/2024 Diabetes Management Consult Follow up
Patient admitted 04/06 with intractable vomiting for 1 week. PMH HTN, HCL, type 1 diabetes. Prior to admission patient was using the Medtronic 780 with Guardian Sensor, and novolog insulin. He is followed by Dr. Bautista endocrine @ [facility].
Patient known to me from previous admission. Pump was removed on admission and sent home. A1C 8.1%, cr 1, eGFR >60.
Patient ordered corrective insulin and lantus 20 units @ HS once.
Patient is off the unit for testing. I spoke to his .
Pump and supplies were brought in 04/09 late, pump restarted.
Pump settings as follows:
Current pump settings are as follows:
Basal ICR
12A 2.30 12A 1:2
3A 2.60 12P 1:1.5
7A 2.50 8P 1:1.5
9A 2.50 ISF 12A - 12A 1:20
12P 3.0
8P 2.75 Target 12A -12A 90-120
24 hr total basal 64.8 units. Patient is capable of using and managing his pump independently, to continue.
Glucose range this AM 152 and 121. Glucose @ 4:08 49, treated then 109. Will assess overnight glucose and consider decreasing 3AM basal rate. Will follow.
Diabetes History
- -
Type of Diabetes: 1
Pre-Admission Diabetes Regimen
04/09/24
07:13
Creatinine 1.0
Lab Results
Hemoglobin A1c 8.1 % (4.0-5.6) H 04/07/24 06:39
Insulin Pump Settings
IP Diabetes Regimen
04/09/24 04/09/24 04/09/24
07:13 12:09 17:07
Glucose 191 H
POC Glucose 278 H 217 H
04/09/24 04/10/24 04/10/24
21:37 04:36 05:59
Glucose
POC Glucose 126 H 109 H 130 H
Meal type: Lunch
Meal type: Breakfast
Amount consumed: 100%
Amount consumed: 100%
Amount consumed: 100%
Patient Education
[2024-04-10] MEDS: SYMBICORT 160/4.5 MCG INHALER 2 PUFF INH (08:20)
[2024-04-10] MEDS: SPIRIVA RESPIMAT 2.5 MCG 2 PUFF INH (08:21)
[2024-04-10 08:35] LABS: Glucose - Point of Care 152 mg/dl (70-99)
[2024-04-10 09:18] LABS: Blood Urea Nitrogen 14 mg/dl (9-20); Calcium 8.6 mg/dl (8.4-10.2); Carbon Dioxide 31 mmol/L (22-30); Chloride 96 mmol/L (98-107); Estimated Creatinine Clearance 95 ml/min; Glucose 164 mg/dl (70-99); Phosphorus 2.8 mg/dl (2.5-4.5); Potassium 4.2 mmol/L (3.5-5.1); Sodium 135 mmol/L (135-145); eGFR > 60.00
--- NOTE | 2024-04-10 09:19 | PTOTSP ---
PATIENT ABLE TO MOBILIZE INDEPENDENTLY ON LEVEL SURFACES WELL ELEVATIONS THIS SESSION REQUIRING NO FURTHER ACUTE CARE SKILLED P.T. AT THIS TIME. ENCOURAGED PATIENT TO AMBULATE IN HALLS AD [facility]IP[facility]. WILL DISCHARGE FROM P.T. SERVICES.
[2024-04-10] MEDS: LOW STRENGTH ASPIRIN 81 MG PO (09:32)
[2024-04-10] MEDS: CARAFATE SUSPENSION 1 GM PO (09:32)
[2024-04-10] MEDS: COREG 6.25 MG PO (09:32)
[2024-04-10] MEDS: PROTONIX IV 40 MG IV (09:33)
[2024-04-10] MEDS: NSS (PRESERVATIVE FREE) 10 ML IV (09:33)
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
[2024-04-10 10:33] LABS: Glucose - Point of Care 49 mg/dl (70-99)
[2024-04-10 11:59] LABS: Glucose - Point of Care 118 mg/dl (70-99)
[2024-04-10 12:48] LABS: Glucose - Point of Care 121 mg/dl (70-99)
[2024-04-10] MEDS: PT'S OWN INSULIN PUMP - NovoLOG 2.5 UNIT SC ×2 (13:01→17:37)
[2024-04-10] MEDS: CARAFATE SUSPENSION PO ×2 (13:01→17:36)
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
[2024-04-10] MEDS: REGLAN 10 MG PO (14:17)
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
[2024-04-10 17:17] LABS: Glucose - Point of Care 130 mg/dl (70-99)
--- NOTE | 2024-04-10 17:39 | PTCARENOTE ---
Patient left via wheelchair with and staff escort. IV and tele discontinued. Patient and deny questions on discharge instructions.
--- NOTE | 2024-04-11 17:08 | PN.CDI ---
CDI
- -
CDI:
Physician Documentation Request
Admit Date: 04/06/24 19:55
Dear Doctor Yoel,
Please review the following and provide your response in the progress notes.
Clinical Indicators:
Pt admitted with Type1 DM with gastroparesis/ DKA /Starvation ketoacidosis/JAY
Documented per nutrition note 04/10, ' pt reports was 232lbs in October, CBW: 180lbs 26.6 04/10, reflective of 52 lb (22%) weight loss significant per ASPEN/AND. Pt reports has been unable to eat much, having n/v after eating and difficulty
swallowing. Diet: 1800 kcal, low residue, low fat diet. RD to change diet to 2000 kcal (to better meet estimated needs), low residue, low fat diet. RD to monitor po intakes and need for nutritional supplement....With weight loss of > 10% in 6
months and < 75% estimated needs > 1 month pt meeting AND/ASPEN criteria for moderate protein calorie malnutrition...'
Based on the above information and your assessment, which of the following most accurately represents the patient's nutritional status?
Moderate protein Calorie Malnutrition
Mild Protein Calorie Malnutrition
Other ( please specify)
Dawson Criteria (ACP Hospitalist 2017)
2 or more criteria must be present for either
non severe or severe malnutrition
Note that the criteria differs related to the
presence of an acute or chronic illness
Acute Illness Chronic Illness
Energy Intake Non Severe: <75% for >7 days Non Severe: <75% for >1 month
Severe: <50% for >5 days Severe: <75% for >1 month
Weight Loss Non Severe: 1-2% over 1 week Non Severe: 5% over 1 month
5% over 1 month 7.5% over 3 months
7.5% over 3 months 10% over 6 months
1 year N/A 20% over 1 year
Severe: >2% over 1 week Severe: >5% over 1 month
>5% over 1 month >7.5% over 3 months
>7.5% over 3 months >10% over 6 months
1 year N/A >20% over 1 year
Body Fat Non Severe: Mild Decrease Non Severe: Mild Loss
Severe: Moderate Decrease Severe: Severe Loss
Muscle Mass Non Severe: Mild Decrease Non Severe: Mild Loss
Severe: Moderate Decrease Severe: Severe Loss
Fluid Accumulation Non Severe: Mild Accumulation Non Severe: Mild Accumulation
Severe: Moderate to severe Severe: Moderate to severe
accumulation accumulation
Reduced [employer] Worker Strength Non Severe: N/A Non Severe: N/A
Severe: Measurably reduced Severe: Measurably reduced
Use of terms such as suspected, likely, concern for, or probable (associated with a specific diagnosis that is being evaluated, monitored, or treated as if it exists) are acceptable and can be coded in the inpatient setting, when documented at the
time of discharge.
Thank you,
Lynn Benson RN
CDI Specialist
Juda Text
Please use your independent medical judgment in providing your response.
== END 2024-04-10 18:04 | disposition home or self-care (01) | DRG 74 ==
LOC: 4 EAST ACU 19:55
PROVIDERS: Internal Medicine; Physician Assistant; Specialist; ADMITTING PHYSICIAN Internal Medicine; ATTENDING PHYSICIAN Internal Medicine; CONSULT PHYSICIAN Internal Medicine Cardiovascular Disease; CONSULT PHYSICIAN Internal Medicine Gastroenterology; CONSULT PHYSICIAN Specialist; EMERGENCY PHYSICIAN Emergency Medicine; FAMILY PHYSICIAN Physician Assistant
PROC: 0DB38ZX Excision of Lower Esophagus, Via Natural or Artificial Opening Endoscopic, Diagnostic (ICD-10-PCS; 2024-04-10)
PROC: 0DB28ZX Excision of Middle Esophagus, Via Natural or Artificial Opening Endoscopic, Diagnostic (ICD-10-PCS; 2024-04-10)
PROC: 0DB78ZX Excision of Stomach, Pylorus, Via Natural or Artificial Opening Endoscopic, Diagnostic (ICD-10-PCS; 2024-04-10)
DX: E10.43 Type 1 diabetes mellitus with diabetic autonomic (poly)neuropathy (principal); N17.9 Acute kidney failure, unspecified; E44.0 Moderate protein-calorie malnutrition; K22.10 Ulcer of esophagus without bleeding; E10.649 Type 1 diabetes mellitus with hypoglycemia without coma; I10 Essential (primary) hypertension; I95.89 Other hypotension; I95.1 Orthostatic hypotension; E10.10 Type 1 diabetes mellitus with ketoacidosis without coma; K31.84 Gastroparesis; K21.00 Gastro-esophageal reflux disease with esophagitis, without bleeding; E86.1 Hypovolemia; K31.89 Other diseases of stomach and duodenum; I25.2 Old myocardial infarction; I25.10 Atherosclerotic heart disease of native coronary artery without angina pectoris; E78.5 Hyperlipidemia, unspecified; G47.30 Sleep apnea, unspecified; R13.10 Dysphagia, unspecified; R41.89 Other symptoms and signs involving cognitive functions and awareness; E87.5 Hyperkalemia; R94.31 Abnormal electrocardiogram [ECG] [EKG]; Z96.41 Presence of insulin pump (external) (internal); Z68.26 Body mass index [BMI] 26.0-26.9, adult; Z79.4 Long term (current) use of insulin; Z79.82 Long term (current) use of aspirin; Z79.02 Long term (current) use of antithrombotics/antiplatelets; Z79.899 Other long term (current) drug therapy; Z86.010 Personal history of colon polyps
CPT/HCPCS: 88305; 78264; 80048; 80053; 81003; 82570; 82947; 82962; 83036; 83605; 83690; 83735; 83880; 83935; 84100; 84156; 84484; 85025; 85027; 86803; 88342; 93005; 94640; 96374; 96375; 97116; 97162; 97166; 99285; A9541

== ENCOUNTER → 2024-05-03 09:45 | Outpatient (REF) | payer OTHER, SELFPAY | LOC: DHSLP 09:45 | PROVIDERS: ATTENDING PHYSICIAN Internal Medicine Critical Care Medicine; FAMILY PHYSICIAN Physician Assistant | DX: G47.33 Obstructive sleep apnea (adult) (pediatric) (principal); G47.61 Periodic limb movement disorder | CPT/HCPCS: 95810 ==

== ENCOUNTER 2024-07-08 16:42 | Inpatient (IN) | payer OTHER, SELFPAY ==
[2024-07-08] VITALS (10 sets, daily range): BP systolic 112–159; BP diastolic 57–98; BMI 26.9
[2024-07-08] MEDS: ZOFRAN ODT (ORALLY DISINTEGRATING) 4 MG PO (14:13)
[2024-07-08 14:19] LABS: Glucose - Point of Care 311 mg/dl (70-99)
[2024-07-08 14:36] LABS: Hematocrit 38.9 % (39.0-52.0); Mean Corpuscular Hgb 29.5 pg (27.0-31.0); Mean Corpuscular Volume 82.1 fL (80.0-94.0); Mean Platelet Volume 10.1 fL (7.4-10.4); Platelet Count 281 10^3/uL (130-400); Red Blood Cell Count 4.74 10^6/uL (4.70-6.10); Red Cell Dist. Width 13.2 % (11.5-14.5); White Blood Cell Count 26.1 10^3/uL (4.8-10.8)
[2024-07-08 14:42] LABS: ALT (SGPT) 29 U/L (0-50); AST (SGOT) 44 U/L (17-59); Albumin 4.8 g/dl (3.5-5.0); Alkaline Phosphatase 120 U/L (38-126); Blood Urea Nitrogen 48 mg/dl (9-20); Calcium 9.4 mg/dl (8.4-10.2); Carbon Dioxide 20 mmol/L (22-30); Chloride 90 mmol/L (98-107); Glucose 342 mg/dl (70-99); Lipase 25 U/L (23-300); Potassium 4.4 mmol/L (3.5-5.1); Sodium 131 mmol/L (135-145); Total Bilirubin 0.7 mg/dl (0.2-1.3); Total Protein 7.2 g/dl (6.3-8.2); eGFR > 60.00
[2024-07-08 14:44] LABS: % Basophils 0.1 % (0-2); % Immature Granulocytes 0.7 % (0-0.5); % Lymphocytes 5.3 % (20.5-51.1); % Neutrophils 86.9 % (42.2-75.2); Absolute Immature Granulocytes 0.2 10^3/uL (0-0.05); Absolute Lymphocytes 1.4 10^3/uL (1.2-3.4); Absolute Monocytes 1.8 10^3/uL (0.1-0.6); Absolute Neutrophils 22.7 10^3/uL (1.4-6.5); Nucleated Red Blood Cells % 0 % (-)
[2024-07-08 14:50] LABS: B-Hydroxybutyrate 2.17 mmol/L (0.02-0.27)
--- NOTE | 2024-07-08 15:23 | ED.GENMED ---
History of Present Illness
General
Chief Complaint: Abdominal Symptoms
Time Seen by Provider: 07/08/24 15:03
History of Present Illness
History of Present Illness:
64 presents to the emergency department for evaluation of poor appetite for the past 2 days associated with nausea and vomiting. Blood sugar has been undetectably high for the past 24 hours. He has a Dexcom and uses an insulin pump. He denies any
fever, chills, sweats, cough, or shortness of breath.
Past History
Past History
ED Past Medical History: HTN, Hypercholesterolemia and IDDM
ED Past Surgical History: None
Social History
Tobacco: Former smoker
Alcohol: Occasional
Personal:
Living: with family
Employment: Employed
Review of Systems
Review of Systems
Allergies reviewed?: Yes
All Other Systems: ROS reviewed and negative except as documented in HPI and ROS
Phy Exam
Physical Exam
Physical Exam:
GEN: Well appearing, NAD, WDWN
Eyes: PERRLA, EOMs intact, no scleral icterus
HENT: NCAT, oral mucosa moist, no erythema or exudates
Lungs: CTAB, no wheezes, rales, rhonchi, normal chest wall excursion
Cardiac: Tachycardic, regular
Abdomen: S, NT, ND, NABS, no masses or hepatosplenomegaly
Neuro: AO x 3
MSK: No gross deformity or ecchymosis. No edema. No digital clubbing
Skin: No rashes, petechiae. Normal color, no pallor or jaundice.
Psych: Calm, cooperative, proper hygiene
Course
Orders/Labs/Results
Orders:
Orders
07/08/24 14:12
Ondansetron Orally Disint [Zofran Odt (Orally Disintegrating)] 4 mg .ROUTE .[facility]
07/08/24 14:13
Ondansetron Orally Disint [Zofran Odt (Orally Disintegrating)] 4 mg PO NOW STA
07/08/24 14:19
B-Hydroxybutyrate Urgent
Complete Blood Count/With Diff Urgent
Comprehensive Metabolic Panel Urgent
Lipase Urgent
07/08/24 15:08
Lactated Ringers [Lr] 1,000 ml IV BOLUS
07/08/24 15:22
Urinalysis Reflex To Culture Urgent
Date Specimen was Collected: 07/08/24
Time Specimen was Collected: 15:30
CR Chest Portable - 1 View Urgent
Comment:
Reason For Exam: leukocytosis
Reason Study Needs to be Portable: Other
07/08/24 15:28
Venous Blood Gas Urgent
%Oxygen/Room Air: 99
07/08/24 15:48
Bedside Glucose- Treatment Q1H
IV Insert/Care/Rem.- Treatment PRN
07/08/24 15:55
Reg Insulin 100 Units/100 ml [Novolin R Insulin Infusion] 100 units in 100 ml IV NOW
07/08/24 16:00
Electrocardiogram (*1) Urgent
Reason for Study: QTc Monitoring
EKG- Treatment ONCE
Basic Metabolic Panel Q2H
KCl 20 Meq/0.45 Sodchl 1000 ml [0.45% NACL with KCL 20 MEQ] 20 meq in 1,000 ml IV 250 mls/hr
Ondansetron Injectable [Zofran] 4 mg IV NOW STA
07/08/24 18:00
Basic Metabolic Panel Q2H
07/08/24 20:00
Basic Metabolic Panel Q2H
Abnormal Lab Results
07/08/24 07/08/24
14:09 14:19
WBC 26.1 H 10^3/uL
(4.8-10.8)
Hct 38.9 L %
(39.0-52.0)
Abs Immat Gran (auto) 0.2 H 10^3/uL
(0-0.05)
Absolute Neuts (auto) 22.7 H 10^3/uL
(1.4-6.5)
Absolute Monos (auto) 1.8 H 10^3/uL
(0.1-0.6)
Immature Gran % 0.7 H %
(0-0.5)
Neutrophils % 86.9 H %
(42.2-75.2)
Lymphocytes % 5.3 L %
(20.5-51.1)
Sodium 131 L mmol/L
(135-145)
Chloride 90 L mmol/L
(98-107)
Carbon Dioxide 20 L mmol/L
(22-30)
BUN 48 H mg/dl
(9-20)
Glucose 342 H mg/dl
(70-99)
B-Hydroxybutyrate 2.17 H mmol/L
(0.02-0.27)
POC Glucose 311 H mg/dl
(70-99)
07/08/24 14:19
Vital Signs
Initial and Last Documented VS:
Initial Vital Signs
Temp Pulse Resp BP Pulse Ox
98.7 F 107 20 144/74 99
07/08/24 14:06 07/08/24 14:06 07/08/24 14:06 07/08/24 14:06 07/08/24 14:06
Last Documented Vital Signs
Temp Pulse Resp BP Pulse Ox
98.7 F 107 20 144/74 99
07/08/24 14:06 07/08/24 14:06 07/08/24 14:06 07/08/24 14:06 07/08/24 14:06
MDM/Problems Addressed
MDM/Problems Addressed:
64-year-old male presenting with nausea, vomiting, poor appetite, and fatigue. He is found to be in DKA evidenced by hyperglycemia, elevated ketones, and anion gap of 21. His pH is normal and he is compensating well at this time. Will initiate
insulin drip and IV fluids, admit to the hospitalist service for further management
Comment
Comment:
EKG independently interpreted by me shows normal sinus rhythm at a rate of [address] changes concerning for ischemia
*Critical Care Note
Total Time (30-74mins, 75-104mins- exclusive of procedures): 35 minutes
comment:
Critical care time: 35 minutes
Critical care time was exclusive of: Separately billable procedures, treating other patients, and teaching time
Critical care was necessary to treat or prevent imminent or life-threatening deterioration of the following conditions: DKA
Critical care time spent personally by me on the following activities:
[x] Review of old charts
[x] Obtaining history from patient or surrogate
[x] Ordering and review of the laboratory studies
[x] Ordering and review of radiographic studies
[x] Ordering and performing treatments and interventions
[x] Patient patient's response to treatment
[x] Development of treatment plan with patient or surrogate
ED Attending Note
-
Portions of this chart may have been created with voice recognition software.� Occasional wrong word or��sound alike� substitutions may have occurred due to the inherent limitations of voice recognition software.
Discharge Plan
Departure
Patient Disposition: Admit
Date of Disposition: 07/08/24
Time of Disposition: 16:02
Admit to: ICU
Presentation/result/management discussed w/ accepting MD/DO: Hospitalist
Discharge Problem:
DKA (diabetic ketoacidosis)
Prescriptions:
No Action
atorvastatin 40 mg Tablet
40 mg PO DAILY
therapeutic multivitamin Tablet
1 tab PO DAILY
aspirin 81 mg Tablet,Delayed Release (Dr/Ec)
81 mg PO DAILY
insulin aspart U-100 100 unit/mL Solution
0 unit SC .VIA PUMP
Patient Comments:
07/08/24: Patient uses his own insulin pump.
ezetimibe 10 mg Tablet
10 mg PO DAILY
carvedilol 6.25 mg Tablet
6.25 mg PO BID Qty: 60 0RF
clopidogrel 75 mg Tablet
75 mg PO DAILY Qty: 30 0RF
pantoprazole [Protonix] [address] for susp in packet
40 mg PO BID Qty: 60 1RF
Trelegy Ellipta 200-62.5-25 mcg blister with device
1 inh INHALATION R DAILY
sucralfate 100 mg/mL Suspension
1 g PO BID 30 Days Qty: 600 0RF
amlodipine 2.5 mg tablet
2.5 mg PO DAILY 30 Days Qty: 30 0RF
famotidine 20 mg tablet
20 mg PO BID
metoclopramide HCl 10 mg tablet
10 mg PO BID
Discharge Date and Time
Print Language: FRENCH
[2024-07-08] MEDS: LR 1000 IV (15:26)
[2024-07-08 15:34] LABS: Venous Blood Gas B.E. -2.7 mmol/L (-4 to +4); Venous Blood Gas HCO3 23.7 mmol/L (22-27); Venous Blood Gas O2 Sat % 63.1 %; Venous Blood Gas pCO2 46 mmHg (35-48); Venous Blood Gas pH 7.32 (7.32-7.43); Venous Blood Gas pO2 34 mmHg (30-50)
[2024-07-08] MEDS: ZOFRAN 4 MG IV ×2 (16:05→21:46)
--- NOTE | 2024-07-08 16:19 | HPS.HSE ---
Family Physician
-
Family Physician:
Chief Complaint
-
Nausea/vomiting
History of Present Illness
64-year-old male extensive past medical history is presenting from home with complaints of nausea vomiting and loose stools. States of symptomatology started over the weekend. Multiple episode of nausea associated with vomiting. Vomiting contains
biliary content at this point. Also states of loose watery stools. Denies any abdominal pain. Denies any sick contact. Denies any recent change in diet. Denies any fevers or chills. States checked his sugars at home and was found to be
significantly elevated. Spouse gave additional dose of insulin at home. Sugars were still elevated. States a prior episode similar when his sugars were uncontrolled and thus decided come into the hospital. Denies any lightheaded or dizziness.
Denies any dysuria or hematuria. Denies any chest pain or shortness of breath. Denies any productive cough.
Medical History
Past Medical History
Past Medical History: Reports Other
Additional Past Medical History:
Esophagitis
GERD
Diabetes mellitus insulin-dependent
Primary hypertension
CAD
Diabetic gastroparesis
History of tobacco abuse
Hyperlipidemia
Past Surgical History: Reports None
Social History
Tobacco: Former Smoker (Used to smoke greater than 1 pack a day)
Alcohol: Occasional (Drinks beer over the weekend)
Personal:
Living: With Family
Family History
Family History: Not pertinent
Allergies / Home Medications
Allergies reflects when Allergies were last updated in [facility].
Home Medications with original date entered in [facility]
Allergy/Medication List:
Allergies
Allergy/AdvReac Type Severity Reaction Status Date / Time
Sulfa (Sulfonamide Allergy Itching, Verified 07/08/24 14:07
Antibiotics) hives
Home Medications
aspirin 81 mg tablet,delayed release 81 mg PO DAILY Blood Clot Prevention/Tx 01/21/24
atorvastatin 40 mg tablet 40 mg PO DAILY High Cholesterol 01/21/24
ezetimibe 10 mg tablet 10 mg PO DAILY High Cholesterol 01/21/24
insulin aspart U-100 100 unit/mL subcutaneous solution 0 unit SC .VIA PUMP Diabetes 01/21/24
therapeutic multivitamin 1 tab PO DAILY Supplement 01/21/24
carvedilol 6.25 mg tablet 6.25 mg PO BID #60 tabs 01/24/24
clopidogrel 75 mg tablet 75 mg PO DAILY #30 tabs 01/24/24
pantoprazole 40 mg granules delayed-release for susp in packet (Protonix) 40 mg PO BID #60 ea 01/24/24
fluticasone fur. 200 mcg-umeclid 62.5 mcg-vilant 25 mcg inhalat.powder (Trelegy Ellipta) 1 inh inhalation R DAILY Lung/Breathing Issues 04/06/24
amlodipine 2.5 mg tablet 2.5 mg PO DAILY 30 days #30 tabs 04/10/24
sucralfate 100 mg/mL oral suspension 1 g (10 mL) PO BID 1 month #600 mL 04/10/24
famotidine 20 mg tablet 20 mg PO BID 07/08/24
metoclopramide HCl 10 mg tablet 10 mg PO BID 07/08/24
Review of Systems
-
History Source: Patient and Family
A 12 point ROS was completed and negative except as noted: Yes
Physical Exam
Vital Signs
Vital Signs
Temp Pulse Resp BP Pulse Ox
98.7 F 107 20 144/74 99
07/08/24 14:06 07/08/24 14:06 07/08/24 14:06 07/08/24 14:06 07/08/24 14:06
Physical Exam
General: Well Developed, Well Nourished and No Apparent Distress
HEENT: NormoCephalic, Moist mucous membranes and Atraumatic
Respiratory: Clear
Cardiac: S1/S2 and Regular Rhythm; No Murmur or Rub
GI: Soft, Non Tender (No guarding or rigidity. No abdominal pain.), Non Distended and Normal Bowel Sounds; No Organomegaly
Rectal: Deferred by Provider
Genito-urinary: Deferred by me
Musculoskeletal: No Clubbing, No Cyanosis and No Edema
Skin: No Rash
Neuro: Awake, Alert, Oriented, AO x 3, No Motor Deficits and Nonfocal/grossly intact
Psych: Calm
Laboratory Results
-
07/08/24 14:19
Laboratory Results
Total Bilirubin 0.7 mg/dl (0.2-1.3) 07/08/24 14:19
AST 44 U/L (17-59) 07/08/24 14:19
ALT 29 U/L (0-50) 07/08/24 14:19
Alkaline Phosphatase 120 U/L (38-126) 07/08/24 14:19
Lipase 25 U/L (23-300) 07/08/24 14:19
Impression/Plan
-
#Nausea and vomiting and diarrhea likely second to viral gastroenteritis
#Nausea vomiting likely could also be due to gastroparesis/DKA
Suspected sepsis secondary to above
Afebrile.
Start patient on aggressive IV fluid resuscitation
Antinausea meds IV as needed
PPI
If with loose stools check stool studies
If with fever check blood cultures
Chest x-ray noted
UA pending
If no improvement may require CT abdomen pelvis
Leukocytosis likely reactive. Afebrile. Trend for now.
#Mild episode of diabetic ketoacidosis
Insulin-dependent diabetes mellitus
Elevated beta hydroxybutyrate. POC elevated.
Started on IV insulin infusion
Every 4 hours BMP
Start D5 once sugars less than 250
N.p.o. for now
Diabetic nurse practitioner consultation once gap closes
Insulin pump held for now
Student Finance Advisor evaluation
#Diabetic gastroparesis
#GERD/esophagitis
IV PPI and H2 elena
Reglan
Continue with Carafate
If no improvement may need to consider GI eval as follows with Dr. Benavides as outpatient
#Primary hypertension
Continue with home meds
#CAD
Continue with aspirin and Plavix
#Hyperlipidemia
Continue with home regimen
DVT prophylaxis Lovenox
Discussed with patient spouse at bedside in detail
Total Critical Care Time_ 40 minutes. I was immediately available to the patient and staff. I personally examined, reviewed labs, diagnostic images/reports, interpretations, treatment plans, discussed patient care with other providers and family
or caregivers (if patient is unable to make decisions), entered orders as appropriate and documented the medical record.
[2024-07-08] MEDS: NOVOLIN R INSULIN INFUSION 100 IV (16:23)
[2024-07-08 16:24] LABS: Glucose - Point of Care 326 mg/dl (70-99)
[2024-07-08] MEDS: 0.45% NACL with KCL 20 MEQ 1000 IV (16:30)
[2024-07-08 16:43] LABS: Blood Urea Nitrogen 47 mg/dl (9-20); Calcium 8.7 mg/dl (8.4-10.2); Carbon Dioxide 18 mmol/L (22-30); Chloride 93 mmol/L (98-107); Estimated Creatinine Clearance 62 ml/min; Glucose 359 mg/dl (70-99); Potassium 3.9 mmol/L (3.5-5.1); Sodium 128 mmol/L (135-145); eGFR > 60.00
[2024-07-08 17:25] LABS: Glucose - Point of Care 314 mg/dl (70-99)
[2024-07-08] MEDS: REGLAN 5 MG IV (17:26)
[2024-07-08] MEDS: NSS with KCL 20 MEQ 1000 IV (18:08)
[2024-07-08] MEDS: LOVENOX 40 MG SC (18:09)
--- NOTE | 2024-07-08 18:15 | PTCARENOTE ---
Pt arrived to [facility]m 3370 via stretcher from ER at 1740. Pt ambulated from stretcher to bed- gait steady. Pt received w/ Insulin gtt infusing at 8.3units/hr and IV changed to ordered NS w/20meq KCL @ 125ml/hr. Pt on RA w/ POx 99%. Denies SOB. NPO per
order- taking ice chips at present, denying c/o nausea. Physical assessment completed as documented. Admission questions completed. Orientation provided to surroundings, plan of care. Questions answered. Call jayson w/in pt reach.
--- NOTE | 2024-07-08 18:41 | PTCARENOTE ---
K Shemar STEAMFITTER notified of accu check= [address]. [address] order for change in IVF
[2024-07-08 18:47] LABS: Glucose - Point of Care 195 mg/dl (70-99)
[2024-07-08] MEDS: D5/0.45%NSS with KCL 20 MEQ 1000 IV (18:56)
[2024-07-08 19:46] LABS: Glucose - Point of Care 171 mg/dl (70-99)
[2024-07-08 20:49] LABS: Glucose - Point of Care 176 mg/dl (70-99)
[2024-07-08 21:53] LABS: Glucose - Point of Care 149 mg/dl (70-99)
[2024-07-08] MEDS: COREG 6.25 MG PO (21:53)
[2024-07-08] MEDS: NSS (PRESERVATIVE FREE) 10 ML IV (21:56)
[2024-07-08] MEDS: PROTONIX IV 40 MG IV (21:57)
[2024-07-08] MEDS: CARAFATE SUSPENSION 1 GM PO (21:57)
[2024-07-08] MEDS: PEPCID 20 MG PO (21:57)
[2024-07-08 22:47] LABS: Glucose - Point of Care 203 mg/dl (70-99)
[2024-07-08 23:47] LABS: Glucose - Point of Care 202 mg/dl (70-99)
[2024-07-09] VITALS (25 sets, daily range): BP systolic 103–188; BP diastolic 52–102; BMI 27.1
[2024-07-09 00:43] LABS: Glucose - Point of Care 214 mg/dl (70-99)
[2024-07-09 01:17] LABS: Blood Urea Nitrogen 41 mg/dl (9-20); Calcium 9.1 mg/dl (8.4-10.2); Carbon Dioxide 26 mmol/L (22-30); Chloride 97 mmol/L (98-107); Estimated Creatinine Clearance 75 ml/min; Glucose 207 mg/dl (70-99); Sodium 135 mmol/L (135-145); eGFR > 60.00
[2024-07-09] MEDS: D5/0.45%NSS with KCL 20 MEQ 1000 IV ×3 (01:34→18:51)
[2024-07-09 01:43] LABS: Glucose - Point of Care 181 mg/dl (70-99)
[2024-07-09] MEDS: REGLAN 5 MG IV ×2 (01:44→10:43)
[2024-07-09 02:52] LABS: Glucose - Point of Care 196 mg/dl (70-99)
[2024-07-09 03:48] LABS: Glucose - Point of Care 193 mg/dl (70-99)
[2024-07-09 04:06] LABS: Urine Albumin Negative (Neg - Trace); Urine Bilirubin Negative (Negative); Urine Character Clear (Clear); Urine Color Yellow; Urine Glucose 2+ (Negative); Urine Ketone 2+ (Negative); Urine Leukocyte Negative (Negative); Urine Nitrite Negative (Negative); Urine Occult Blood Negative (Negative); Urine Specific Gravity 1.015 (<1.030); Urine Urobilinogen Negative (Neg - 1+)
[2024-07-09 04:39] LABS: % Basophils 0.1 % (0-2); % Immature Granulocytes 0.6 % (0-0.5); % Lymphocytes 7.2 % (20.5-51.1); % Monocytes 9.4 % (1.7-9.3); % Neutrophils 82.7 % (42.2-75.2); Absolute Immature Granulocytes 0.1 10^3/uL (0-0.05); Absolute Lymphocytes 1.3 10^3/uL (1.2-3.4); Absolute Monocytes 1.7 10^3/uL (0.1-0.6); Hematocrit 36.6 % (39.0-52.0); Hemoglobin 13.1 g/dL (13.0-18.0); Mean Corp Hgb Conc. 35.8 g/dL (33.0-37.0); Mean Corpuscular Hgb 30.3 pg (27.0-31.0); Mean Corpuscular Volume 84.7 fL (80.0-94.0); Mean Platelet Volume 10.2 fL (7.4-10.4); Nucleated Red Blood Cells % 0 % (-); Platelet Count 226 10^3/uL (130-400); Red Blood Cell Count 4.32 10^6/uL (4.70-6.10); Red Cell Dist. Width 13.2 % (11.5-14.5); White Blood Cell Count 18.1 10^3/uL (4.8-10.8)
[2024-07-09 04:44] LABS: Glucose - Point of Care 234 mg/dl (70-99)
[2024-07-09 05:01] LABS: Blood Urea Nitrogen 37 mg/dl (9-20); Calcium 8.8 mg/dl (8.4-10.2); Carbon Dioxide 25 mmol/L (22-30); Chloride 98 mmol/L (98-107); Estimated Creatinine Clearance 83 ml/min; Glucose 228 mg/dl (70-99); Sodium 134 mmol/L (135-145); eGFR > 60.00
[2024-07-09 05:51] LABS: Glucose - Point of Care 227 mg/dl (70-99)
[2024-07-09 05:54] LABS: Hepatitis C Antibody Negative (Negative)
[2024-07-09] MEDS: ZOFRAN 4 MG IV ×2 (06:36→13:01)
[2024-07-09 06:46] LABS: Glucose - Point of Care 190 mg/dl (70-99)
[2024-07-09] MEDS: SPIRIVA RESPIMAT 2.5 MCG 2 PUFF INH (07:24)
[2024-07-09] MEDS: SYMBICORT 160/4.5 MCG INHALER 2 PUFF INH ×2 (07:24→19:47)
[2024-07-09] MEDS: PROTONIX IV 40 MG IV ×2 (07:49→19:45)
[2024-07-09] MEDS: ZETIA 10 MG PO (07:49)
[2024-07-09] MEDS: NORVASC 2.5 MG PO (07:49)
[2024-07-09] MEDS: NSS (PRESERVATIVE FREE) 10 ML IV ×2 (07:49→19:46)
[2024-07-09] MEDS: PEPCID 20 MG PO ×2 (07:49→19:49)
[2024-07-09] MEDS: PLAVIX 75 MG PO (07:50)
[2024-07-09] MEDS: COREG 6.25 MG PO ×2 (07:50→19:49)
[2024-07-09] MEDS: ASPIR LOW (ENTERIC COATED) 81 MG PO (07:50)
[2024-07-09] MEDS: LIPITOR 40 MG PO (07:50)
[2024-07-09] MEDS: CARAFATE SUSPENSION 1 GM PO ×3 (07:50→22:06)
[2024-07-09 07:52] LABS: Glucose - Point of Care 217 mg/dl (70-99)
[2024-07-09 08:05] LABS: Glycohemoglobin (HgbA1c) 7.6 % (4.0-5.6)
[2024-07-09 08:46] LABS: Glucose - Point of Care 241 mg/dl (70-99)
--- NOTE | 2024-07-09 09:00 | PTCARENOTE ---
pt alert and oriented, NSR on monitor , BP 155/72 , on 2L NC with sats of 95% , on insulin gtt for DKA , pt has nausea and small amts of vomiting , will give Reglan and Zofran when able , consult for diabetic PARCEL CONTRACTOR and pt to be transitioned to his
insulin pump later today
[2024-07-09 10:04] LABS: Glucose - Point of Care 218 mg/dl (70-99)
[2024-07-09 10:52] LABS: Glucose - Point of Care 196 mg/dl (70-99)
[2024-07-09 11:50] LABS: Glucose - Point of Care 219 mg/dl (70-99)
--- NOTE | 2024-07-09 12:54 | CON.INTV ---
Consultation
Consultation Request
Date/Time Consultation Requested: 07/09/2024
Date/Time Consultation Performed: 07/09/2024
Requesting Provider: Dr. Fall
Performing Provider: Dr. Alan Ramirez
Reason for Consultation: D diabetes ketoacidosis
Medical History
Past Medical History
Past Medical History: Other (See assessment and plan section)
Social History
Tobacco: Former Smoker (On average used to smoke 1 pack/day.)
Alcohol: Occasional (Weekends)
Personal:
Living: With Family
Family History
Family History: Reviewed & Not Pertinent
Allergies / Home Medications
Allergies
Allergy/AdvReac Type Severity Reaction Status Date / Time
Sulfa (Sulfonamide Allergy Itching, Verified 07/08/24 14:07
Antibiotics) hives
Home Medications
�Medication �Instructions �Recorded �Confirmed �Last Taken �Type
aspirin 81 mg tablet,delayed 81 mg PO DAILY Blood Clot 01/21/24 07/08/24 04/06/24 History
release Prevention/Tx
atorvastatin 40 mg tablet 40 mg PO DAILY High Cholesterol 01/21/24 07/08/24 04/06/24 History
ezetimibe 10 mg tablet 10 mg PO DAILY High Cholesterol 01/21/24 07/08/24 04/06/24 History
insulin aspart U-100 100 unit/mL 0 unit SC .VIA PUMP Diabetes 01/21/24 07/08/24 07/08/24 History
subcutaneous solution
therapeutic multivitamin 1 tab PO DAILY Supplement 01/21/24 07/08/24 04/06/24 History
carvedilol 6.25 mg tablet 6.25 mg PO BID #60 tabs 01/24/24 07/08/24 04/06/24 Rx
clopidogrel 75 mg tablet 75 mg PO DAILY #30 tabs 01/24/24 07/08/24 04/06/24 Rx
fluticasone fur. 200 mcg-umeclid 1 inh inhalation R DAILY 04/06/24 07/08/24 04/06/24 History
62.5 mcg-vilant 25 mcg Lung/Breathing Issues
inhalat.powder (Trelegy Ellipta)
amlodipine 2.5 mg tablet 2.5 mg PO DAILY 30 days #30 tabs 04/10/24 07/08/24 Unknown Rx
sucralfate 100 mg/mL oral 1 g (10 mL) PO BID 1 month #600 mL 04/10/24 07/08/24 04/06/24 Rx
suspension
famotidine 20 mg tablet 20 mg PO BID Gastrointestinal Issue 07/08/24 07/08/24 Unknown History
metoclopramide HCl 10 mg tablet 10 mg PO BID Gastrointestinal Issue 07/08/24 07/08/24 Unknown History
pantoprazole 40 mg granules 40 mg PO BID Gastrointestinal Issue 07/09/24 07/08/24 Unknown History
delayed-release for susp in packet
(Protonix)
Review of Systems
-
History Source: Patient
All other systems: Negative unless noted
Vitals / Labs / Diagnostic Testing
Vital Signs
Temp Pulse Resp BP Pulse Ox
98.7 F 86 16 155/72 97
07/09/24 08:00 07/09/24 07:50 07/09/24 07:29 07/09/24 07:50 07/09/24 07:29
Lab Data
07/09/24 04:12
Diagnostic Testing:
Physical Exam
-
HEENT: Normocephalic
Cardiovascular: S1/S2
Respiratory: Clear and Non-Labored Respirations
GI: Soft and Non Distended
Neurology: Awake and Oriented
Skin: Warm
General: Comfortable
Assessment
-
Diabetes ketoacidosis-likely insulin pump malfunction-
Hemoglobin A1c 7.6
Nausea and vomiting-gastroparesis
Urinalysis negative
LFTs/lipase- normal
leukocytosis possibly reactive
Conditions present prior admission:
Coronary artery disease
Diabetes gastroparesis
History of tobacco abuse: 26-cxho-liqy history. Quit smoking longer than 15 years ago.
Hyperlipidemia
Type 1 diabetes
Obstructive sleep apnea AHI 15 events per hour. Follows up with Dr. Peterson
Hypertension
Chronic cough: GERD/upper airway cough syndrome
History of esophagitis
Severe persistent asthma-on Trelegy.
Assessment and plan:
Diabetes ketoacidosis: Presented with nausea and vomiting. Possible pump malfunction.
It was noted that the tubing was kinked.
IV insulin drip, Accu-Cheks hourly
Once blood sugar decreased to D5 and a half.
Discussed with diabetes nurse practitioner-will transition to insulin pump. Anion gap appears to be closing.
Afebrile
Unfortunately, not tolerating diet today as of this morning. Patient does have history of diabetes gastroparesis
Continue antiemetics
PPI
Continue IV fluids
Monitor electrolytes
Increase activity as able
-
So far no evidence for infection.
Denies any diarrhea.
Denies abdominal pain.
Continue to monitor off
-
Coronary artery disease: Chest pain-free.
Continue antiplatelets
EKG nonischemic
Restart outpatient antihypertensive
-
Continue inhalers for asthma. Not bronchospastic on exam.
History of moderate obstructive sleep apnea: Recently obtained CPAP-he has had been having difficulties. ECW reviewed, will be readdressed in the outpatient
Follows up with Dr. Peterson.
-
DVT prophylaxis-subcu Lovenox.
-
Critical care statement: A total of 31 minutes of critical care time was provided for this patient today. This includes management of unstable vital signs, evaluation of the patient at bedside, reviewing the patient's pertinent medical records
including ventilator settings, arterial blood gases, radiographs, microbiology, laboratory evaluations and discussion with primary team, critical care nursing, and respiratory therapy.
[2024-07-09 12:58] LABS: Blood Urea Nitrogen 26 mg/dl (9-20); Calcium 8.9 mg/dl (8.4-10.2); Carbon Dioxide 29 mmol/L (22-30); Chloride 97 mmol/L (98-107); Estimated Creatinine Clearance 93 ml/min; Glucose 214 mg/dl (70-99); Potassium 4.3 mmol/L (3.5-5.1); Sodium 133 mmol/L (135-145); eGFR > 60.00
--- NOTE | 2024-07-09 12:58 | W.PN.HOSP.TC ---
Today's Communication/Plan
-
stop insulin infusion
start insulin pump
IVF for now
GI eval
PPI
Assessment / Plan
Assessment / Plan
#Nausea and vomiting and diarrhea likely second to viral gastroenteritis
#Nausea vomiting likely could also be due to gastroparesis/DKA
Suspected sepsis secondary to above
Afebrile.
Start patient on aggressive IV fluid resuscitation
Antinausea meds IV as needed
PPI
If with loose stools check stool studies
If with fever check blood cultures
Chest x-ray noted
UA negative
If no improvement may require CT abdomen pelvis
Leukocytosis likely reactive. improving/downtrending. Afebrile. Trend for now.
#Mild episode of diabetic ketoacidosis
Insulin-dependent diabetes mellitus
Elevated beta hydroxybutyrate. POC elevated.
Anion gap closed. Plan to start patient on insulin pump and to stop IV insulin infusion.
Diabetic nurse practitioner consultation
Epic Director evaluation
#Diabetic gastroparesis
#GERD/esophagitis
IV PPI and H2 elena
Reglan
Continue with Carafate
Remains with persistent nausea. Will ask GI for eval
#Primary hypertension
Continue with home meds
#CAD
Continue with aspirin and Plavix
#Hyperlipidemia
Continue with home regimen
DVT prophylaxis Lovenox
Anticipated Discharge: > 48 hours
Subjective/Interval History
-
Date of Service: July 09, 2024
states remains with dry heaves
no abd pain
Objective Data
-
Labs:
Laboratory Results
07/09/24 07/09/24 07/09/24
00:39 04:12 09:58
WBC 18.1 H
Hgb 13.1
Hct 36.6 L
Plt Count 226
Sodium 135 134 L Cancelled
Potassium 4.0 4.0 Cancelled
Chloride 97 L 98 Cancelled
Carbon Dioxide 26 25 Cancelled
BUN 41 H 37 H Cancelled
Creatinine 1.0 0.9 Cancelled
Glucose 207 H 228 H Cancelled
Calcium 9.1 8.8 Cancelled
07/09/24 07/09/24
11:22 11:37
WBC
Hgb
Hct
Plt Count
Sodium Pending Pending
Potassium Pending Pending
Chloride Pending Pending
Carbon Dioxide Pending Pending
BUN Pending Pending
Creatinine Pending Pending
Glucose Pending Pending
Calcium Pending Pending
Vital Signs:
Vital Signs
Temp Pulse Resp BP Pulse Ox
98.7 F 86 16 155/72 97
07/09/24 08:00 07/09/24 07:50 07/09/24 07:29 07/09/24 07:50 07/09/24 07:29
I&O
07/08/24 07/09/24 07/10/24
06:59 06:59 06:59
Intake Total 1660.3 / 1660.3
Output Total 1280 / 1280
Balance 380.3 / 380.3
Physical Exam
-
General: Well Developed and No Apparent Distress
HEENT: Normocephalic, Atraumatic and Moist Mucous Membranes
Respiratory: Clear to Auscultation
Cardiac: Regular Rhythm and S1/S2; Negative Murmur, Rub or Gallop
GI: Soft, Nontender, Nondistended and Normal Bowel Sounds; Negative Organomegaly
Rectal: Deferred by Provider
Musculoskeletal: No Clubbing, No Cyanosis and No Edema
Skin: Negative Rash
Neuro: Awake, Alert, Oriented, AO x 3, No Motor Deficits and Nonfocal/Grossly Intact
Data Reviewed
-
Total Time Spent with Patient (in minutes): 52
[2024-07-09 13:19] LABS: Glucose - Point of Care 209 mg/dl (70-99)
--- NOTE | 2024-07-09 13:31 | PN.DE.MGMTRT ---
Insulin Management
- -
07/09/2024 Diabetes Management Consult
Patient admitted with N & V high blood sugar, DKA. PMH HTN, HCL, type 1 diabetes, GERD. Prior to admission was using Medtronic insulin pump. A1C 7.6%, cr .9, eGFR > 60
Patient is awake alert and oriented able to discuss diabetes management. Removed current infusion set, cannula kinked in half. Pointed out to patient that is the reason his glucose was so high.
GAP is closed, insulin pump restarted, pump settings:
basal carb ratio corrective target
12am 2.3 2 20 90 - 120
3am 2.6 2 20 90 - 120
7am 2.5 2 20 90 - 110
12pm 3 1.5 20 90 - 110
8pm 2.75 1.5 20 90 - 110
24 hour basal total 64.8
Patient appetite is poor, will bolus if corrective needed and if appetite improves
Will follow
Diabetes History
- -
Type of Diabetes: 1
Pre-Admission Diabetes Regimen
07/08/24 07/08/24 07/08/24
14:19 16:20 18:00
Creatinine 1.3 1.2 Cancelled
07/08/24 07/09/24 07/09/24
21:32 00:39 04:12
Creatinine Cancelled 1.0 0.9
07/09/24 07/09/24 07/09/24
09:58 11:22 11:37
Creatinine Cancelled Cancelled 0.8
Lab Results
Hemoglobin A1c 7.6 % (4.0-5.6) H 07/09/24 04:12
Insulin Pump Settings
IP Diabetes Regimen
07/08/24 07/08/24 07/08/24
14:09 14:19 16:18
Glucose 342 H
POC Glucose 311 H 326 H
07/08/24 07/08/24 07/08/24
16:20 17:24 18:00
Glucose 359 H Cancelled
POC Glucose 314 H
07/08/24 07/08/24 07/08/24
18:36 19:34 20:36
Glucose
POC Glucose 195 H 171 H 176 H
07/08/24 07/08/24 07/08/24
21:32 21:42 22:35
Glucose Cancelled
POC Glucose 149 H 203 H
07/08/24 07/09/24 07/09/24
23:36 00:32 00:39
Glucose 207 H
POC Glucose 202 H 214 H
07/09/24 07/09/24 07/09/24
01:32 02:40 03:38
Glucose
POC Glucose 181 H 196 H 193 H
07/09/24 07/09/24 07/09/24
04:12 04:32 05:38
Glucose 228 H
POC Glucose 234 H 227 H
07/09/24 07/09/24 07/09/24
06:32 07:41 08:35
Glucose
POC Glucose 190 H 217 H 241 H
07/09/24 07/09/24 07/09/24
09:53 09:58 10:41
Glucose Cancelled
POC Glucose 218 H 196 H
07/09/24 07/09/24 07/09/24
11:22 11:37 11:39
Glucose Cancelled 214 H
POC Glucose 219 H
07/09/24
13:08
Glucose
POC Glucose 209 H
Patient Education
[2024-07-09] MEDS: PT'S OWN INSULIN PUMP - NovoLOG SC ×2 (14:28→19:45)
--- NOTE | 2024-07-09 14:37 | CON.GI ---
Addendum entered and electronically signed by Sarah Mccollum MD 07/09/24 16:34:
I saw and examined the patient.
The INTERFACE ANALYST or PA's note was reviewed and I agree with the note.
Comment: 64-year-old gentleman well-known to our group history of diabetic gastroparesis with recent admission in April with DKA, flare of diabetic gastroparesis, dysphagia. At that time underwent upper endoscopy with Dr. Byrnes and had ongoing
esophagitis, localized scarring in the esophagus, food in the stomach. It was felt at that time his symptoms are likely from gastroparesis causing GERD leading to dysphagia and odynophagia. At that time recommend to treat all with acid
suppression, gastroparesis dietary changes and promotility agents. Needs to work on improving A1c and avoiding marijuana or narcotics. Patient has remained on marijuana. He has been on Reglan.
At this time, we will do a trial of Remeron to see if that helps with his gastroparesis. Reglan is not ideal long-term setting and seems to not be working. Will start low-dose at 15 mg. We also discussed the importance of stopping marijuana. He
is currently on Protonix twice a day and Pepcid twice a day in the hospital. He may benefit from Vorichza outpatient for his severe esophagitis.
We will get a barium esophagram to see if there is a stricture and if he would benefit from dilation because if he does need dilation he would need Plavix hold for 5 days. If there is no stricture, we can proceed with endoscopy on Plavix just to
look to see if there is ongoing esophagitis, ensure there is no Lori. However, we would need to wait for him to be medically optimized before procedures.
Original Note:
Consultation
-
Date/Time Consultation Requested: 07/09/24 1300
Date/Time Consultation Performed: 07/09/24 1430
Requesting Provider: Yousuf Fall MD
Performing Provider: SHAHZAD Seaman, Jia Styles MD
Reason for Consultation: odynophagia, dysphagia, gastroparesis
Medical History
Chief Complaint / HPI
Chief Complaint: Chest pain, nausea and vomiting
History of Present Illness:
Fer is a 63 yo male with a PMH significant for HTN, CAD/IN on Plavix, GERD, HLD, IDDM, obesity, LA grade D esophagitis, recently seen by GI for esophagitis and concern for gastroparesis. In reviewing with patient and spouse hx DM since 1998.
He has been well controlled for year with hbgA1C in 6 range. In October he went on cruise and admits to eating hot soup with feeling of burning in esophagus then has burn on hand. Since that time he has had recurrent episodes of
nausea/vomiting/dysphagia/odynophagia. He has had extensive work up with several EGD, esophagram, GE scan and multiple medication trial. He was last admitted on April with similar symptoms. He has been on PPI BID, famotidine BID, Reglan BID, and
Carafate BID but now presents with recurrent nausea/vomiting and loose stools with concern for DKA. hbg A1c was 7.6 on admission. He admits to 55 lbs wt loss since October. He also admits to Marijuana use at night for sleep. He was in process of
arranging OP EGD with Dr. Morales.
Pt also admits to some diarrhea and constipation but denies rectal bleeding.
01/23 EGD which showed LA grade D esophagitis with no stigmata of bleeding along with gastritis with recommended repeat in 2 months. pathology which shows active esophagitis with ulceration and granulation reaction that was negative for CMV and
HSV.
03/2024 esophagram Mild presbyesophagus. Otherwise, normal fluoroscopic evaluation of the esophagus.
04/2024 gastric emptying scan at that time with concern for gastroparesis with at 120 minutes greater than 80 activity remains at 240minites 70 percent remains.
04/10/24 EGD walp The proximal esophagus is normal. The mid/distal esophagus has continued esophagitis likely from uncontrolled GERD in setting of gastroparesis with large amount of food retained bx with neg h pylori, neg CMV mild chronic
gastritis
07/2020 colonoscopy andrew polyp in HF, 2 polyps TC, ascending, diverticulosis bx TA x2 and HP polyps bx neg CMV, neg H pylori due 2024
Past Medical History
Past Medical History: CAD, GERD, HTN, Hypercholesterolemia, IDDM, IN and Other (obesity, grade D esophagitis, gastroparesis, colon polyp)
Social History
Tobacco: Former Smoker
Alcohol: Occasional
Drug: Marijuana
Personal:
Living: With Family
Employment: Employed
Family History
Family History: Reviewed & Not Pertinent
Allergies / Home Medications
Allergy/AdvReac Type Severity Reaction Status Date / Time
Sulfa (Sulfonamide Allergy Itching, Verified 07/08/24 14:07
Antibiotics) hives
�Medication �Instructions �Recorded
aspirin 81 mg tablet,delayed 81 mg PO DAILY Blood Clot 01/21/24
release Prevention/Tx
atorvastatin 40 mg tablet 40 mg PO DAILY High Cholesterol 01/21/24
ezetimibe 10 mg tablet 10 mg PO DAILY High Cholesterol 01/21/24
insulin aspart U-100 100 unit/mL 0 unit SC .VIA PUMP Diabetes 01/21/24
subcutaneous solution
therapeutic multivitamin 1 tab PO DAILY Supplement 01/21/24
carvedilol 6.25 mg tablet 6.25 mg PO BID #60 tabs 01/24/24
clopidogrel 75 mg tablet 75 mg PO DAILY #30 tabs 01/24/24
fluticasone fur. 200 mcg-umeclid 1 inh inhalation R DAILY 04/06/24
62.5 mcg-vilant 25 mcg Lung/Breathing Issues
inhalat.powder (Trelegy Ellipta)
amlodipine 2.5 mg tablet 2.5 mg PO DAILY 30 days #30 tabs 04/10/24
sucralfate 100 mg/mL oral 1 g (10 mL) PO BID 1 month #600 mL 04/10/24
suspension
famotidine 20 mg tablet 20 mg PO BID Gastrointestinal Issue 07/08/24
metoclopramide HCl 10 mg tablet 10 mg PO BID Gastrointestinal Issue 07/08/24
pantoprazole 40 mg granules 40 mg PO BID Gastrointestinal Issue 07/09/24
delayed-release for susp in packet
(Protonix)
Review of Systems
-
History Source: Patient and Family
Constitutional: Reports Weight Loss (55 lbs )
EENT: Reports No Symptoms
Respiratory: Reports No Symptoms
Cardiac: Reports No Symptoms
Abdomen/GI: Reports Abdominal Pain, Nausea, Vomiting, Diarrhea (at times ) and Other (odynophagia, dysphagia )
: Reports No Symptoms
Musculoskeletal: Reports No Symptoms
Skin: Reports No Symptoms
Neurological: Reports Weakness
Endocrine: Reports No Symptoms
Hematologic/Lymphatic: Reports No Symptoms
Vital Signs
Temp Pulse Resp BP Pulse Ox
98.7 F 86 16 155/72 97
07/09/24 08:00 07/09/24 07:50 07/09/24 07:29 07/09/24 07:50 07/09/24 07:29
Physical Exam
Exam
General: Well Developed, Well Nourished and No Apparent Distress
HEENT: Normocephalic and Anicteric
Respiratory: Clear
Cardiac: Regular Rhythm
GI: Soft, Non Distended and Tender (minimal )
Musculoskeletal: No Clubbing and No Cyanosis
Skin: Warm and Dry
Neuro: Awake, Alert and AO x 3
Psych: Calm
Results
WBC 18.1 10^3/uL (4.8-10.8) H 07/09/24 04:12
Hgb 13.1 g/dL (13.0-18.0) 07/09/24 04:12
Hct 36.6 % (39.0-52.0) L 07/09/24 04:12
MCV 84.7 fL (80.0-94.0) 07/09/24 04:12
Plt Count 226 10^3/uL (130-400) 07/09/24 04:12
Absolute Neuts (auto) 15.0 10^3/uL (1.4-6.5) H 07/09/24 04:12
Sodium 133 mmol/L (135-145) L 07/09/24 11:37
Potassium 4.3 mmol/L (3.5-5.1) 07/09/24 11:37
Chloride 97 mmol/L (98-107) L 07/09/24 11:37
Carbon Dioxide 29 mmol/L (22-30) 07/09/24 11:37
BUN 26 mg/dl (9-20) H 07/09/24 11:37
Creatinine 0.8 mg/dL (0.7-1.3) 07/09/24 11:37
Calcium 8.9 mg/dl (8.4-10.2) 07/09/24 11:37
Total Bilirubin 0.7 mg/dl (0.2-1.3) 07/08/24 14:19
AST 44 U/L (17-59) 07/08/24 14:19
ALT 29 U/L (0-50) 07/08/24 14:19
Alkaline Phosphatase 120 U/L (38-126) 07/08/24 14:19
Lipase 25 U/L (23-300) 07/08/24 14:19
Hepatitis C Antibody Negative (Negative) 07/09/24 04:12
Diagnostic Image Results:
Assessment / Plan
-
Fer is a 63 yo male with a PMH significant for HTN, CAD/IN on Plavix, GERD, HLD, IDDM, obesity, LA grade D esophagitis, recently seen by GI for esophagitis and concern for gastroparesis. In reviewing with patient and spouse hx DM since 1998.
He has been well controlled for year with hbgA1C in 6 range. In October he went on cruise and admits to eating hot soup with feeling of burning in esophagus then has burn on hand. Since that time he has had recurrent episodes of
nausea/vomiting/dysphagia/odynophagia. He has had extensive work up with several EGD, esophagram, GE scan and multiple medication trial. He was last admitted on April with similar symptoms. He has been on PPI BID, famotidine BID, Reglan BID, and
Carafate BID but now presents with recurrent nausea/vomiting and loose stools with concern for DKA. hbg A1c was 7.6 on admission. He admits to 55 lbs wt loss since October. He also admits to Marijuana use at night for sleep. He was in process of
arranging OP EGD with Dr. Morales.
01/23 EGD which showed LA grade D esophagitis with no stigmata of bleeding along with gastritis with recommended repeat in 2 months. pathology which shows active esophagitis with ulceration and granulation reaction that was negative for CMV and
HSV.
03/2024 esophagram Mild presbyesophagus. Otherwise, normal fluoroscopic evaluation of the esophagus.
04/2024 gastric emptying scan at that time with concern for gastroparesis with at 120 minutes greater than 80 activity remains at 240minites 70 percent remains.
04/10/24 EGD walp The proximal esophagus is normal. The mid/distal esophagus has continued esophagitis likely from uncontrolled GERD in setting of gastroparesis with large amount of food retained bx with neg h pylori, neg CMV mild chronic
gastritis
07/2020 colonoscopy morales polyp in HF, 2 polyps TC, ascending, diverticulosis bx TA x2 and HP polyps bx neg CMV, neg H pylori due 2024
-DKA on admission
-continued nausea and vomiting
-odynophagia/dysphagia
-leukocytosis
-gastroparesis
-presbyesophagus on esophagram
-NIDDM with mild elevated hbgA1c 7.6
-hx CAD/IN in January 2024 on ASA and Plavix
-GERD with hx esophagitis
-marijuana use
-wt loss
-CAD with chronic Plavix use
other med problems:
-HTN
-HLD
-obesity
PLAN:
etiology of symptoms with concern for gastroparesis leading to severe GERD with odynophagia, dysphagia, vs multi factorial with Marijuana use vs other
I reviewed recent office note with Dr. Morales- plan for EGD to assess for healing of esophagus and consider dilation of mid esophagus which was beginning to stricture if needed but was awaiting ok for Plavix hold from cardiology
reviewed with family will trial Remeron at bedtime
stop Marijuana for several months to see if adding to symptoms
optimize glucose control
will plan for repeat esophagram in AM to assess for any stricturing disease
cont PPI BID, Pecid BID, Carafate TID reglan now PRN
can consider EGD but pt has been on Plavix during admission and still with DKA to correct- may need to try to set up OP testing
-Avoid/limit alcohol and NSAID's
-Due 07/2025 for repeat colonoscopy
-
-
Thank you for consultation and allowing me to participate in the patient's care. Please call the cushion spring assembler GI physician during the after hours with any questions or concerns.
--- NOTE | 2024-07-09 15:16 | PTCARENOTE ---
pt now off of insulin gtt and using his own insulin pump , he continues to have nausea , he had IV Reglan at 1045 and Zofran at 1300 , he continue on IVF he is refusing to eat due to his nausea , he is written for a clear liquid diet and tolerating
water .
--- NOTE | 2024-07-09 15:52 | W.PN.UPDATE ---
Update Note
Progress Note Update
Clinically improving
Now on insulin pump
Still nauseous but able to tolerate some water
Will restart oral antihypertensives
Transferred to [facility].
Critical care team will sign off.
Please call pulmonary if any respiratory issues arise
[2024-07-09] MEDS: APRESOLINE 10 MG IV (15:56)
[2024-07-09 18:00] LABS: Glucose - Point of Care 545 mg/dl (70-99)
[2024-07-09 18:37] LABS: ALT (SGPT) 29 U/L (0-50); AST (SGOT) 40 U/L (17-59); Alkaline Phosphatase 117 U/L (38-126); Blood Urea Nitrogen 24 mg/dl (9-20); Calcium 8.7 mg/dl (8.4-10.2); Carbon Dioxide 19 mmol/L (22-30); Chloride 92 mmol/L (98-107); Estimated Creatinine Clearance 93 ml/min; Glucose 553 mg/dl (70-99); Potassium 4.8 mmol/L (3.5-5.1); Sodium 131 mmol/L (135-145); Total Protein 6.4 g/dl (6.3-8.2); eGFR > 60.00
[2024-07-09] MEDS: LOVENOX 40 MG SC (18:51)
--- NOTE | 2024-07-09 19:34 | PTCARENOTE ---
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
SQ Lantus and NovoLog . the patient changed his infusion set at 1700 and he is due to recheck his blood sugar at 2100
--- NOTE | 2024-07-09 19:56 | PTCARENOTE ---
[facility] resting comfortably in bed with his family member at the bedside. Pt AAOx3, denies pain, states his nausea is 'tolerable' at the moment and politely declines intervention. NSR on the monitor, tolerating RA with SpO2
97%. Remainder of assessment as documented. Pt states he reconnected his personal insulin pump from home this afternoon, per the request of It Associate, but changed out the cartridge and tubing approximately 1900 after a potential
malfunction. Updated pt on POC for the evening, accuchek recheck at 2100, pt without questions or concerns at this time.
[2024-07-09 21:28] LABS: Glucose - Point of Care 517 mg/dl (70-99)
[2024-07-09] MEDS: PT'S OWN INSULIN PUMP - NovoLOG 19.7 UNIT SC (22:06)
[2024-07-09] MEDS: NSS with KCL 20 MEQ 1000 IV (22:06)
[2024-07-09] MEDS: REMERON 15 MG PO (22:06)
[2024-07-09 22:16] LABS: Glucose 580 mg/dl (70-99)
--- NOTE | 2024-07-09 22:24 | PTCARENOTE ---
Repeat accuchek reading RRHIGH; pt's insulin pump self reading a blood glucose of 518 and administered 19.7 units from pt's insulin pump which pt recorded on his sheet provided by the public health educator. STAT glucose drawn, resulted 580. D/w
covering DESK PEN SET ASSEMBLER, IVF D5/0.45NS w/ 20meqK discontinued and replaced with NSS w/ 20meqK @ 75mL/hr, see MAR. Recheck blood sugar 0000. No additional insulin ordered at this time as pt already self administered via his pump.
[2024-07-10] VITALS (16 sets, daily range): BP systolic 117–180; BP diastolic 57–97
[2024-07-10 00:17] LABS: Glucose - Point of Care 383 mg/dl (70-99)
--- NOTE | 2024-07-10 00:33 | W.PN.UPDATE ---
Update Note
Progress Note Update
RN notified BILINGUAL NANNY, Patient Blood sugar noted to be 517 and lab result of 580 and is on [id number] 20meq at 75CC/hr. Patient is on Insulin pump at present and stated patient received 19 units from his pump for blood sugar 517. Advised RN to check in two
hours and d/c'd the D5 1/2NS and added NSS kcl 20MEQ@ 75cc/hr. 2 hours later BS of 383 noted. Patient with no new complaints.
6 PM Anion gap of 22 noted at [facility] therefore Stat labs ordered at [facility]
Stat lab resulted anion gap of 14. lab BS 293
lab due in AM.
[2024-07-10 01:52] LABS: Mean Corp Hgb Conc. 36.1 g/dL (33.0-37.0); Mean Corpuscular Hgb 29.9 pg (27.0-31.0); Mean Corpuscular Volume 82.8 fL (80.0-94.0); Mean Platelet Volume 9.8 fL (7.4-10.4); Platelet Count 225 10^3/uL (130-400); Red Blood Cell Count 4.35 10^6/uL (4.70-6.10); Red Cell Dist. Width 13.2 % (11.5-14.5); White Blood Cell Count 18.4 10^3/uL (4.8-10.8)
[2024-07-10 02:12] LABS: ALT (SGPT) 31 U/L (0-50); AST (SGOT) 38 U/L (17-59); Albumin 3.8 g/dl (3.5-5.0); Alkaline Phosphatase 86 U/L (38-126); Blood Urea Nitrogen 31 mg/dl (9-20); Calcium 8.9 mg/dl (8.4-10.2); Carbon Dioxide 22 mmol/L (22-30); Chloride 95 mmol/L (98-107); Estimated Creatinine Clearance 83 ml/min; Glucose 293 mg/dl (70-99); Magnesium 2.2 mg/dl (1.6-2.3); Potassium 4.2 mmol/L (3.5-5.1); Sodium 131 mmol/L (135-145); Total Protein 6.1 g/dl (6.3-8.2); eGFR > 60.00
[2024-07-10] MEDS: ZOFRAN 4 MG IV ×3 (05:08→18:11)
[2024-07-10 05:30] LABS: % Basophils 0.1 % (0-2); % Immature Granulocytes 0.4 % (0-0.5); % Lymphocytes 9.5 % (20.5-51.1); % Monocytes 9.7 % (1.7-9.3); % Neutrophils 80.3 % (42.2-75.2); Absolute Immature Granulocytes 0.1 10^3/uL (0-0.05); Absolute Lymphocytes 1.5 10^3/uL (1.2-3.4); Absolute Monocytes 1.5 10^3/uL (0.1-0.6); Absolute Neutrophils 12.7 10^3/uL (1.4-6.5); Hematocrit 37.9 % (39.0-52.0); Hemoglobin 13.4 g/dL (13.0-18.0); Mean Corp Hgb Conc. 35.4 g/dL (33.0-37.0); Mean Corpuscular Volume 84.8 fL (80.0-94.0); Nucleated Red Blood Cells % 0 % (-); Platelet Count 229 10^3/uL (130-400); Red Blood Cell Count 4.47 10^6/uL (4.70-6.10); Red Cell Dist. Width 12.8 % (11.5-14.5); White Blood Cell Count 15.9 10^3/uL (4.8-10.8)
[2024-07-10 05:55] LABS: ALT (SGPT) 29 U/L (0-50); AST (SGOT) 35 U/L (17-59); Albumin 3.7 g/dl (3.5-5.0); Alkaline Phosphatase 92 U/L (38-126); Blood Urea Nitrogen 29 mg/dl (9-20); Calcium 8.9 mg/dl (8.4-10.2); Carbon Dioxide 29 mmol/L (22-30); Chloride 97 mmol/L (98-107); Estimated Creatinine Clearance 93 ml/min; Glucose 154 mg/dl (70-99); Potassium 4.2 mmol/L (3.5-5.1); Sodium 133 mmol/L (135-145); Total Bilirubin 1.2 mg/dl (0.2-1.3); Total Protein 6.2 g/dl (6.3-8.2); eGFR > 60.00
[2024-07-10] MEDS: SPIRIVA RESPIMAT 2.5 MCG 2 PUFF INH (07:27)
[2024-07-10] MEDS: SYMBICORT 160/4.5 MCG INHALER 2 PUFF INH ×2 (07:27→19:28)
[2024-07-10 07:48] LABS: Glucose - Point of Care 87 mg/dl (70-99)
--- NOTE | 2024-07-10 07:48 | PN.DE.MGMTRT ---
Insulin Management
- -
07/10/2024 Diabetes Management Consult Follow up
Patient admitted 07/08 with N & V high blood sugar, DKA. PMH HTN, HCL, type 1 diabetes, GERD. Prior to admission was using Medtronic insulin pump. A1C 7.6%, cr .9, eGFR > 60
Patient is awake alert and oriented able to discuss diabetes management. Removed current infusion set, cannula kinked in half. Pointed out to patient that is the reason his glucose was so high.
GAP is closed, insulin pump restarted, pump settings:
basal carb ratio corrective target
12am 2.3 2 20 90 - 120
3am 2.6 2 20 90 - 120
7am 2.5 2 20 90 - 110
12pm 3 1.5 20 90 - 110
8pm 2.75 1.5 20 90 - 110
24 hour basal total 64.8
07/09 pump restarted @ ~2pm, glucose 545 @ 1747 and 517@ 2116. Nursing notified me of elevated glucose, requested infusion set be changed and correction taken.
07/10 Glucose did come down overnight, 154 this AM. Will make no change to basal rates. Clear liquids started with lunch, glucose pre lunch 84.
Will follow
Diabetes History
- -
Type of Diabetes: 1
Pre-Admission Diabetes Regimen
07/09/24 07/09/24 07/09/24
09:58 11:22 11:37
Creatinine Cancelled Cancelled 0.8
07/09/24 07/09/24 07/10/24
16:00 18:12 01:36
Creatinine Cancelled 0.8 0.9
07/10/24
05:16
Creatinine 0.8
Lab Results
Hemoglobin A1c 7.6 % (4.0-5.6) H 07/09/24 04:12
Insulin Pump Settings
IP Diabetes Regimen
07/09/24 07/09/24 07/09/24
07:41 08:35 09:53
Glucose
POC Glucose 217 H 241 H 218 H
07/09/24 07/09/24 07/09/24
09:58 10:41 11:22
Glucose Cancelled Cancelled
POC Glucose 196 H
07/09/24 07/09/24 07/09/24
11:37 11:39 13:08
Glucose 214 H
POC Glucose 219 H 209 H
07/09/24 07/09/24 07/09/24
16:00 17:47 18:12
Glucose Cancelled 553 H*
POC Glucose 545 H*
07/09/24 07/09/24 07/10/24
21:16 21:51 00:05
Glucose 580 H*
POC Glucose 517 H* 383 H
07/10/24 07/10/24
01:36 05:16
Glucose 293 H 154 H
POC Glucose
Meal type: Breakfast
Patient Education
[2024-07-10] MEDS: LIPITOR 40 MG PO (08:32)
[2024-07-10] MEDS: PT'S OWN INSULIN PUMP - NovoLOG SC ×3 (08:32→17:22)
[2024-07-10] MEDS: ZETIA 10 MG PO (08:32)
[2024-07-10] MEDS: CARAFATE SUSPENSION 1 GM PO ×2 (08:32→20:46)
[2024-07-10] MEDS: PLAVIX 75 MG PO (08:32)
[2024-07-10] MEDS: NSS (PRESERVATIVE FREE) 10 ML IV ×2 (08:33→20:45)
[2024-07-10] MEDS: NORVASC 2.5 MG PO (08:33)
[2024-07-10] MEDS: ASPIR LOW (ENTERIC COATED) 81 MG PO (08:33)
[2024-07-10] MEDS: PEPCID 20 MG PO ×2 (08:33→20:46)
[2024-07-10] MEDS: PROTONIX IV 40 MG IV ×2 (08:33→20:45)
[2024-07-10] MEDS: REGLAN 5 MG IV ×2 (08:39→20:32)
[2024-07-10] MEDS: APRESOLINE 10 MG IV ×2 (08:39→18:11)
--- NOTE | 2024-07-10 10:40 | W.PN.GI.CBS2 ---
Addendum entered and electronically signed by Sarah Mccollum MD 07/10/24 12:19:
I saw and examined the patient.
The STATISTICS TEACHER or PA's note was reviewed and I agree with the note.
Comment: 64 yo M here with DKA, n/v, dysphagia/odynophagia. Similar admission in April.
N/v 2/2 DM gastroparesis which is then leading to severe reflux causing dysphagia/odynophagia.
[place] some improvement in Remeron with n/v- will continue and check QTc.
Continue PPI BID and pepcid BID - will switch ppi from protonix on d/c may benefit from Voquenze.
Esophagram pending t/c egd inpatient vs outpatient.
Pt should stop MJ.
Original Note:
Today's Communication / Plan
-
etiology of symptoms with concern for gastroparesis leading to severe GERD with odynophagia, dysphagia, vs multi factorial with Marijuana use vs other
recent office note with Dr. Benavides- plan for EGD to assess for healing of esophagus and consider dilation of mid esophagus which was beginning to stricture if needed but was awaiting ok for Plavix hold from cardiology
Remeron started 07/09
s/p esophagram with results pending
stop Marijuana for several months to see if adding to symptoms
optimize glucose control
cont PPI BID, Pecid BID, Carafate TID reglan now PRN
can consider EGD but pt has been on Plavix during admission and with DKA may need to consider OP testing
-Avoid/limit alcohol and NSAID's
-Due 07/2025 for repeat colonoscopy
Assessment / Plan
-
Fer is a 63 yo male with a PMH significant for HTN, CAD/[place] on Plavix, GERD, HLD, IDDM, obesity, LA grade D esophagitis, recently seen by GI for esophagitis and concern for gastroparesis. In reviewing with patient and spouse hx DM since 1998.
He has been well controlled for year with hbgA1C in 6 range. In October he went on cruise and admits to eating hot soup with feeling of burning in esophagus then has burn on hand. Since that time he has had recurrent episodes of
nausea/vomiting/dysphagia/odynophagia. He has had extensive work up with several EGD, esophagram, GE scan and multiple medication trial. He was last admitted on April with similar symptoms. He has been on PPI BID, famotidine BID, Reglan BID, and
Carafate BID but now presents with recurrent nausea/vomiting and loose stools with concern for DKA. hbg A1c was 7.6 on admission. He admits to 55 lbs wt loss since October. He also admits to Marijuana use at night for sleep. He was in process of
arranging OP EGD with Dr. Benavides.
01/23 EGD which showed LA grade D esophagitis with no stigmata of bleeding along with gastritis with recommended repeat in 2 months. pathology which shows active esophagitis with ulceration and granulation reaction that was negative for CMV and
HSV.
03/2024 esophagram Mild presbyesophagus. Otherwise, normal fluoroscopic evaluation of the esophagus.
04/2024 gastric emptying scan at that time with concern for gastroparesis with at 120 minutes greater than 80 activity remains at 240minites 70 percent remains.
04/10/24 EGD walp The proximal esophagus is normal. The mid/distal esophagus has continued esophagitis likely from uncontrolled GERD in setting of gastroparesis with large amount of food retained bx with neg h pylori, neg CMV mild chronic
gastritis
07/2020 colonoscopy andrew polyp in HF, 2 polyps TC, ascending, diverticulosis bx TA x2 and HP polyps bx neg CMV, neg H pylori due 2024
-DKA on admission
-continued nausea and vomiting with concern for gastroparesis flare
-odynophagia/dysphagia
-leukocytosis
-presbyesophagus on esophagram
-NIDDM with mild elevated hbgA1c 7.6
-hx CAD/[place] in January 2024 on ASA and Plavix
-GERD with hx esophagitis
-marijuana use
-wt loss
-CAD with chronic Plavix use
other med problems:
-HTN
-HLD
-obesity
PLAN:
etiology of symptoms with concern for gastroparesis leading to severe GERD with odynophagia, dysphagia, vs multi factorial with Marijuana use vs other
recent office note with Dr. Benavides- plan for EGD to assess for healing of esophagus and consider dilation of mid esophagus which was beginning to stricture if needed but was awaiting ok for Plavix hold from cardiology
Remeron started 07/09
s/p esophagram with results pending
stop Marijuana for several months to see if adding to symptoms
optimize glucose control
cont PPI BID, Pecid BID, Carafate TID reglan now PRN
can consider EGD but pt has been on Plavix during admission and with DKA may need to consider OP testing
-Avoid/limit alcohol and NSAID's
-Due 07/2025 for repeat colonoscopy
Subjective
Subjective
Date of Service: July 10, 2024
NPO, did have some nasuea with esophageal study but feeling slightly improved from 07/09
Objective
Data Reviewed
Laboratory Data:
Laboratory Results
07/10/24 05:16
07/10/24 05:16
Laboratory Results
Magnesium 2.2 mg/dl (1.6-2.3) 07/10/24 01:36
Total Bilirubin 1.2 mg/dl (0.2-1.3) 07/10/24 05:16
AST 35 U/L (17-59) 07/10/24 05:16
ALT 29 U/L (0-50) 07/10/24 05:16
Alkaline Phosphatase 92 U/L (38-126) 07/10/24 05:16
Lipase 25 U/L (23-300) 07/08/24 14:19
Vital Signs and I&O:
Vital Signs
Temp Pulse Resp BP Pulse Ox
98.3 F 75 14 180/92 97
07/10/24 07:50 07/10/24 08:45 07/10/24 08:45 07/10/24 08:39 07/10/24 08:46
I&O
07/09/24 07/10/24 07/11/24
06:59 06:59 06:59
Intake Total 1660.3 / 1787.3 7960 / 8035 210 / 210
Output Total 1280 / 1280 2325 / 2325
Balance 380.3 / 507.3 5635 / 5710 210 / 210
Physical Exam
Physical Exam
HEENT: Anicteric and Moist mucous membranes
Cardiology: Normal Sinus Rhythm
Pulmonary: Clear
GI: Soft, Non Distended and Tender (mild diffuse )
Extremities: No Edema
Neuro: Non Focal
--- NOTE | 2024-07-10 10:49 | PTCARENOTE ---
Updated accu data trends. Follow up VS trends. Assessment updated. Continue follow up plan for GI team. start clears lunch today. Patient feeling better overall. Continue to follow. Patient ambulate to bathroom to stretcher. Follow up pump trends,
accu data with support from Diabetic team. Continue with teaching and supportive cares.
[2024-07-10] MEDS: COREG 6.25 MG PO ×2 (11:14→20:44)
--- NOTE | 2024-07-10 11:17 | CM ---
CM following re: discharge planning.
Discussed in Rounds, reviewed pt's chart, met with pt.
Pt is a 64 year old male, admitted with primary dx of DKA.
Pt reports he lives with spouse and a daughter in a 2SH, 2 steps to enter, has 3 supportive children. 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 No DME, VN or SNF history.
PCP: [facility]
Pharmacy: [facility]
D/C plan: home with anticipated no needs. family to transport at discharge.
CM will follow with discharge plan updates as hospitalization progresses
[2024-07-10 12:06] LABS: Glucose - Point of Care 84 mg/dl (70-99)
[2024-07-10] MEDS: NSS with KCL 20 MEQ 1000 IV (12:08)
--- NOTE | 2024-07-10 12:35 | W.PN.HOSP.TC ---
Today's Communication/Plan
-
DC IV fluids
Monitor blood pressure
Symptomatic management
Continue with clear liquid diet
Await for esophagram
Assessment / Plan
Assessment / Plan
#Nausea and vomiting and diarrhea likely second to viral gastroenteritis
Suspected sepsis secondary to above
Afebrile.
Antinausea meds IV as needed
PPI
If with loose stools check stool studies
If with fever check blood cultures
Chest x-ray noted
UA negative
If no improvement may require CT abdomen pelvis
Leukocytosis likely reactive. improving/downtrending. Afebrile. Trend for now.
#Mild episode of diabetic ketoacidosis
Insulin-dependent diabetes mellitus
Elevated beta hydroxybutyrate. POC elevated.
Anion gap closed. Plan to start patient on insulin pump and to stop IV insulin infusion.
Diabetic nurse practitioner consultation
Heat Reader evaluation
#Diabetic gastroparesis
#GERD/esophagitis
#Nausea vomiting likely could also be due to gastroparesis/DKA vs.? THC usage
IV PPI and H2 elena
Reglan
Continue with Carafate
s/p esophagogram. Awaiting final results. May require endoscopy.
#Primary hypertension elevated at times
Persistently elevated will need to increase Norvasc dose.
DC IV fluids
#CAD
Continue with aspirin and Plavix
#Hyperlipidemia
Continue with home regimen
DVT prophylaxis Lovenox
Anticipated Discharge: > 48 hours
Subjective/Interval History
-
Date of Service: July 10, 2024
Remains with dry heaves
will do trial of liquid diet
Objective Data
-
Labs:
Laboratory Results
07/10/24 07/10/24
01:36 05:16
WBC 18.4 H 15.9 H
Hgb 13.0 13.4
Hct 36.0 L 37.9 L
Plt Count 225 229
Sodium 131 L 133 L
Potassium 4.2 4.2
Chloride 95 L 97 L
Carbon Dioxide 22 29
BUN 31 H 29 H
Creatinine 0.9 0.8
Glucose 293 H 154 H
Calcium 8.9 8.9
Total Bilirubin 1.0 1.2
AST 38 35
ALT 31 29
Alkaline Phosphatase 86 92
Vital Signs:
Vital Signs
Temp Pulse Resp BP Pulse Ox
98.3 F 84 20 117/65 97
07/10/24 07:50 07/10/24 11:14 07/10/24 10:48 07/10/24 11:14 07/10/24 10:48
I&O
07/09/24 07/10/24 07/11/24
06:59 06:59 06:59
Intake Total 1660.3 / 1787.3 7960 / 8035 495 / 495
Output Total 1280 / 1280 2325 / 2325 550 / 550
Balance 380.3 / 507.3 5635 / 5710 -55 / -55
Physical Exam
-
General: Well Developed and No Apparent Distress
HEENT: Normocephalic, Atraumatic and Moist Mucous Membranes
Respiratory: Clear to Auscultation
Cardiac: Regular Rhythm and S1/S2; Negative Murmur, Rub or Gallop
GI: Soft, Nontender, Nondistended and Normal Bowel Sounds; Negative Organomegaly
Rectal: Deferred by Provider
Musculoskeletal: No Clubbing, No Cyanosis and No Edema
Skin: Negative Rash
Neuro: Awake, Alert, Oriented, AO x 3, No Motor Deficits and Nonfocal/Grossly Intact
--- NOTE | 2024-07-10 14:07 | PTCARENOTE ---
No new assessment changes.Patient sleeping lightly thru day. Chief complaint of nausea at this time and lack of sleep. No more noted vomiting. Tolerating sips of clears small amounts still not much off an appetite. IVF to be capped after this bag.
Accu checks and insulin pump as ordered. Follow up ecg as per orders. Continue ongoing rounds and follow safety checks.
--- NOTE | 2024-07-10 16:21 | PTCARENOTE ---
Follow up plan of cares. Patient and verbalize concerns with patients repeated bouts of difficulty swallowing vs bouts of nausea/vomitus. Family expressing concerns with not getting this fixed now and being discharged. Review events of
hospital, icu and plan of cares. Family wishes to have planned follow up for swallowing difficulty in place will discuss results of studies with gi and hospitalist tomorrow. Continue supportive cares, teaching and emotional support.
[2024-07-10] MEDS: CARAFATE SUSPENSION PO (17:22)
--- NOTE | 2024-07-10 17:25 | PTCARENOTE ---
Updated follow up. Patient accu check 36. Follow up repeat to confirm. 8oz juice provided as per patient request pump on hold and review settings with patient and pump plan of cares. Follow up accu check in 15minutes to follow. Will update
Hospitalist coverage and DM team. Continue to follow. Patient asymptomatic, VSS, Patient states may need to change 'my basal till up to eating more'. Continue with teaching and follow up plan
[2024-07-10 17:26] LABS: Glucose - Point of Care 36 mg/dl (70-99)
[2024-07-10 17:49] LABS: Glucose - Point of Care 59 mg/dl (70-99)
--- NOTE | 2024-07-10 17:58 | PTCARENOTE ---
Update with Diabetic coordinator team. Following glucose trends. Insulin pump on hold. Patient remains awake alert asymptomatic watching game on tv. Patient very alert with team and interactive with pump and care.
[2024-07-10] MEDS: LOVENOX 40 MG SC (18:10)
[2024-07-10] MEDS: TYLENOL 650 MG PO (18:15)
--- NOTE | 2024-07-10 18:25 | PTCARENOTE ---
Repeat trend in accu data now 84. Patient insulin pump on hold. Patient request to hold and recheck in one hour. Small po intake ongoing. Will follow up protocol trends.
[2024-07-10 18:30] LABS: Glucose - Point of Care 84 mg/dl (70-99)
[2024-07-10] MEDS: REMERON 15 MG PO (20:46)
[2024-07-10 20:49] LABS: Glucose - Point of Care 155 mg/dl (70-99)
[2024-07-10 22:15] LABS: Glucose - Point of Care 227 mg/dl (70-99)
[2024-07-10] MEDS: PT'S OWN INSULIN PUMP - NovoLOG 5.3 UNIT SC (22:16)
--- NOTE | 2024-07-10 23:00 | TRANSFER ---
Pt transferred to [address] [place] [address] [phone] via wheelchair w/ personal belongings. Report given to [facility] Abdelrahman SHANNON.
--- NOTE | 2024-07-10 23:10 | PTCARENOTE ---
Pt received from ICU nurse, Rupert, at 2300. Pt AAOX3, VSS, and able to ambulate into room. Pt receptive to room, bed rails, and bed alarm. Pt bed in lowest position and call tyler within reach. Pt educated on importance of call tyler usage, pt
relays understanding and cooperation. Will continue with current plan of care.
[2024-07-10 23:59] LABS: Glucose - Point of Care 183 mg/dl (70-99)
[2024-07-11] MEDS: ZOFRAN 4 MG IV ×3 (01:21→19:41)
[2024-07-11] MEDS: APRESOLINE 10 MG IV ×3 (04:22→23:41)
[2024-07-11 04:28] LABS: Glucose - Point of Care 51 mg/dl (70-99)
[2024-07-11] MEDS: REGLAN 5 MG IV ×2 (04:38→16:00)
[2024-07-11 04:48] LABS: Glucose - Point of Care 50 mg/dl (70-99)
[2024-07-11] MEDS: DEXTROSE 50% SYRINGE 12.5 GRAMS IV ×2 (04:52→11:55)
[2024-07-11 05:11] LABS: Glucose - Point of Care 126 mg/dl (70-99)
[2024-07-11 05:57] LABS: Glucose - Point of Care 108 mg/dl (70-99)
[2024-07-11 06:31] LABS: Glucose - Point of Care 106 mg/dl (70-99)
[2024-07-11 07:00] VITALS: BP 165/94
--- NOTE | 2024-07-11 07:15 | PTCARENOTE ---
Addendum entered and electronically signed by SHAHZAD Gomes 07/11/24 19:50:
Assigned nurse notified this provider after 6am by different episodes of hypoglycemia that happened couple times while bs in 50s and been managed by juice and that was not successful. This provider advised the nurse to use Dextrose PRN as the
patient reading is in low 50s. She asked if she can put the insulin pump on hold, by reviewing that the chart, the insulin pump was restarted by the Diabetic management ROLLER PAINTER on 07/09. This provider advised the nurse to check bs by 6:30 and if still
going down to tiger text directly the diabetic management ROLLER PAINTER for insulin pump adjustment.
Original Note:
Pt blood sugar taken at 0427 and was at 51. RN gave pt 4oz of apple juice and repeated blood sugar at 0446, result was 50. RN gave pt PRN Dextrose and rechecked blood sugar at 0509, now at 126. To ensure normal blood sugar range, RN retook at 0555,
blood sugar was at 108. Due continued rapid decrease in blood sugar, RN speculated pts insulin pump may be malfunctioning as pt stated that his pump was saying it was having sensor issues. ROLLER PAINTER, Robbie Ruiz, notified. ROLLER PAINTER stated that she is not
sure how insulin pumps work and that RN needs to reach out to Diabetic ROLLER PAINTER. As current RN was coming off shift and checked blood sugar again at 0630 (result at 106) to ensure pt is not hypoglycemic, RN relayed information to day shift RNRuddy and
he stated he will reach out to diabetic RN for any insulin pump adjustments.
[2024-07-11 08:02] LABS: Glucose - Point of Care 71 mg/dl (70-99)
--- NOTE | 2024-07-11 08:02 | PN.DE.MGMTRT ---
Insulin Management
- -
07/11/2024 Diabetes Management Consult Follow up
Patient admitted 07/08 with N & V high blood sugar, DKA. PMH HTN, HCL, type 1 diabetes, GERD. Prior to admission was using Medtronic insulin pump. A1C 7.6%, cr .9, eGFR > 60
Patient is awake alert and oriented able to discuss diabetes management. Removed current infusion set, cannula kinked in half. Pointed out to patient that is the reason his glucose was so high.
GAP is closed, insulin pump restarted, pump settings:
basal 07/11 carb ratio /10 corrective target
12am 2.3 1.9 2 5 30 90 - 120
3am 2.6 1.8 2 5 30 90 - 120
7am 2.5 1.8 2 5 30 90 - 110
12pm 3 2.05 1.5 5 30 90 - 110
8pm 2.75 1.9 1.5 5 30 90 - 110
24 hour basal total 64.8 NOW 46.5
07/09 pump restarted @ ~2pm, glucose 545 @ 1747 and 517@ 2116. Nursing notified me of elevated glucose, requested infusion set be changed and correction taken.
07/10 Glucose did come down overnight, 154 this AM. Will make no change to basal rates. Clear liquids started with lunch, glucose pre lunch 84.
07/10 Patient had multiple episodes of hypoglycemia, will decrease basal rates and change correction factor.
07/11 Due to hypoglycemia basal rates changed as above and carb ratio and correction factors changed. Patient agreeable. He did insert new Medtronic sensor
Will follow
Diabetes History
- -
Type of Diabetes: 1
Pre-Admission Diabetes Regimen
Lab Results
Hemoglobin A1c 7.6 % (4.0-5.6) H 07/09/24 04:12
Insulin Pump Settings
IP Diabetes Regimen
07/10/24 07/10/24 07/10/24
11:55 17:15 17:37
POC Glucose 84 36 L* 59 L
07/10/24 07/10/24 07/10/24
18:19 20:38 22:04
POC Glucose 84 155 H 227 H
07/10/24 07/11/24 07/11/24
23:57 04:27 04:46
POC Glucose 183 H 51 L* 50 L*
07/11/24 07/11/24 07/11/24
05:09 05:55 06:29
POC Glucose 126 H 108 H 106 H
07/11/24
08:00
POC Glucose 71
Meal type: Lunch
Meal type: Breakfast
Amount consumed: 40%
Patient Education
[2024-07-11] MEDS: PT'S OWN INSULIN PUMP - NovoLOG SC ×4 (08:03→22:58)
[2024-07-11 08:04] LABS: % Basophils 0.2 % (0-2); % Eosinophils 0.1 % (0-6); % Immature Granulocytes 0.2 % (0-0.5); % Lymphocytes 19.1 % (20.5-51.1); % Monocytes 13.3 % (1.7-9.3); % Neutrophils 67.1 % (42.2-75.2); Absolute Lymphocytes 1.7 10^3/uL (1.2-3.4); Absolute Monocytes 1.2 10^3/uL (0.1-0.6); Absolute Neutrophils 5.9 10^3/uL (1.4-6.5); Hematocrit 39.3 % (39.0-52.0); Hemoglobin 13.9 g/dL (13.0-18.0); Mean Corp Hgb Conc. 35.4 g/dL (33.0-37.0); Mean Corpuscular Hgb 30.3 pg (27.0-31.0); Mean Corpuscular Volume 85.6 fL (80.0-94.0); Mean Platelet Volume 10.1 fL (7.4-10.4); Nucleated Red Blood Cells % 0 % (-); Platelet Count 200 10^3/uL (130-400); Red Blood Cell Count 4.59 10^6/uL (4.70-6.10); Red Cell Dist. Width 12.8 % (11.5-14.5); White Blood Cell Count 8.9 10^3/uL (4.8-10.8)
[2024-07-11] MEDS: SPIRIVA RESPIMAT 2.5 MCG 2 PUFF INH (08:07)
[2024-07-11] MEDS: SYMBICORT 160/4.5 MCG INHALER 2 PUFF INH ×2 (08:07→20:25)
[2024-07-11] MEDS: PROTONIX IV 40 MG IV (08:09)
[2024-07-11] MEDS: COREG 6.25 MG PO ×2 (08:10→21:01)
[2024-07-11] MEDS: NSS (PRESERVATIVE FREE) 10 ML IV (08:10)
[2024-07-11] MEDS: NORVASC 2.5 MG PO ×2 (08:11→12:32)
[2024-07-11] MEDS: PLAVIX 75 MG PO (08:11)
[2024-07-11] MEDS: ASPIR LOW (ENTERIC COATED) 81 MG PO (08:11)
[2024-07-11] MEDS: ZETIA 10 MG PO (08:11)
[2024-07-11] MEDS: PEPCID 20 MG PO ×2 (08:11→21:01)
[2024-07-11] MEDS: LIPITOR 40 MG PO (08:11)
[2024-07-11] MEDS: CARAFATE SUSPENSION PO (08:12)
[2024-07-11 08:21] LABS: ALT (SGPT) 26 U/L (0-50); AST (SGOT) 27 U/L (17-59); Albumin 3.6 g/dl (3.5-5.0); Alkaline Phosphatase 82 U/L (38-126); Blood Urea Nitrogen 18 mg/dl (9-20); Calcium 8.6 mg/dl (8.4-10.2); Carbon Dioxide 33 mmol/L (22-30); Chloride 94 mmol/L (98-107); Estimated Creatinine Clearance 93 ml/min; Glucose 97 mg/dl (70-99); Potassium 3.8 mmol/L (3.5-5.1); Sodium 135 mmol/L (135-145); Total Bilirubin 1.1 mg/dl (0.2-1.3); Total Protein 6.1 g/dl (6.3-8.2); eGFR > 60.00
[2024-07-11 10:10] LABS: Glucose - Point of Care 76 mg/dl (70-99)
--- NOTE | 2024-07-11 10:30 | W.PN.GI.CBS2 ---
Today's Communication / Plan
-
change protonix to voquenza, increase remeron to 30 mg qhs
Assessment / Plan
-
64 yo M here with DKA, n/v, dysphagia/odynophagia. Similar admission in April.
N/v 2/2 DM gastroparesis which is then leading to severe reflux causing dysphagia/odynophagia.
Esophagram 07/10: '1. Obstruction of a swallowed barium-impregnated tablet at the gastroesophageal junction suspicious for impaired lower esophageal sphincter relaxation. No definitive fluoroscopic evidence for obstructing stricture or mass in the
esophagus. 2. No fluoroscopic evidence for gastric outlet or small bowel obstruction.'
[place] some improvement in Remeron with n/v- will increase to 30 mg today. QTc normal today. Also on reglan prn.
Stop protonix and switch to Voquenza 20 mg - I sent a msg to staff to work on PA. Has been on: famotidine 20 bid, protonix 40 bid, lansoprazole 15 mg, zantac 150 mg, sucralfate. In addition to Voquenza will keep pepcid and sucralfate on. Another
option is dexilant 60 mg if Voquenza fails but cannot get inpatient.
I sent a msg to Dr. Benavides to ensure pt has EGD scheduled outpatient off plavix.
On clear liquid diet when feels improved needs gastroparesis diet.
Subjective
Subjective
Date of Service: July 11, 2024
pt with ongoing nausea, dysphagia/odynophagia
unable to tolerate more than clears
Objective
Data Reviewed
Laboratory Data:
Laboratory Results
07/11/24 06:53
07/11/24 06:53
Laboratory Results
Magnesium 2.2 mg/dl (1.6-2.3) 07/10/24 01:36
Total Bilirubin 1.1 mg/dl (0.2-1.3) 07/11/24 06:53
AST 27 U/L (17-59) 07/11/24 06:53
ALT 26 U/L (0-50) 07/11/24 06:53
Alkaline Phosphatase 82 U/L (38-126) 07/11/24 06:53
Lipase 25 U/L (23-300) 07/08/24 14:19
Vital Signs and I&O:
Vital Signs
Temp Pulse Resp BP Pulse Ox
99.1 F 87 18 165/94 95
07/11/24 07:00 07/11/24 08:12 07/11/24 08:12 07/11/24 08:10 07/11/24 08:12
I&O
07/10/24 07/11/24 07/12/24
06:59 06:59 06:59
Intake Total 7960 / 8035 1560 / 1560
Output Total 2325 / 2325 650 / 650
Balance 5635 / 5710 910 / 910
Physical Exam
Physical Exam
HEENT: Anicteric
Cardiology: Normal Sinus Rhythm
Pulmonary: Clear
GI: Non Distended and Non Tender
--- NOTE | 2024-07-11 10:55 | CM ---
CM reviewed chart, patient transfer from ICU. Patient seen bedside, reports no needs to CM at this time. CM will continue to follow for all discharge planning needs.
Plan; home with family when stable.
[2024-07-11 11:00] VITALS: BP 137/69
[2024-07-11 11:33] LABS: Glucose - Point of Care 69 mg/dl (70-99)
[2024-07-11 11:49] LABS: Glucose - Point of Care 63 mg/dl (70-99)
--- NOTE | 2024-07-11 11:58 | W.PN.HOSP.TC ---
Today's Communication/Plan
-
uptitrate bp meds
Gi recs
Clears and ADAT
Assessment / Plan
Assessment / Plan
General: Well Developed and No Apparent Distress
HEENT: Normocephalic, Atraumatic and Moist Mucous Membranes
Respiratory: Clear to Auscultation
Cardiac: Regular Rhythm and S1/S2; Negative Murmur, Rub or Gallop
GI: Soft, Nontender, Nondistended and Normal Bowel Sounds; Negative Organomegaly
Rectal: Deferred by Provider
Musculoskeletal: No Clubbing, No Cyanosis and No Edema
Skin: Negative Rash
Neuro: Awake, Alert, Oriented, AO x 3, No Motor Deficits and Nonfocal/Grossly Intact
#Diabetic gastroparesis
#GERD/esophagitis
#Nausea vomiting likely could also be due to gastroparesis vs.? THC usage
Plan to stop PPI and Non formulary Voquezna-GI to provide
Reglan prn
Continue with Carafate and pepcid
Esophagram noted
May require endoscopy as outpatient vs. inpatient
clears for now and ADAT
GI following
#Nausea and vomiting and diarrhea likely second to viral gastroenteritis
Suspected sepsis secondary to above
Afebrile.
Antinausea meds IV as needed
If with loose stools check stool studies
If with fever check blood cultures
Chest x-ray noted
UA negative
If no improvement may require CT abdomen pelvis
Leukocytosis likely reactive. improving/downtrending. Afebrile. Resolved.
#Mild episode of diabetic ketoacidosis
Insulin-dependent diabetes mellitus
Elevated beta hydroxybutyrate. POC elevated.
Anion gap closed. Plan to start patient on insulin pump and to stop IV insulin infusion.
Diabetic nurse practitioner consultation
Episode of hypoglycemia noted and corrected
#Primary hypertension elevated at times
Persistently elevated will need to increase Norvasc dose to 5mg.
DC IV fluids
#CAD
Continue with aspirin and Plavix
#Hyperlipidemia
Continue with home regimen
DVT prophylaxis Lovenox
d/w with Gi
Anticipated Discharge: > 48 hours
Subjective/Interval History
-
Date of Service: July 11, 2024
remains with nausea/vomiting/dry heaves
Objective Data
-
Labs:
Laboratory Results
07/11/24
06:53
WBC 8.9
Hgb 13.9
Hct 39.3
Plt Count 200
Sodium 135
Potassium 3.8
Chloride 94 L
Carbon Dioxide 33 H
BUN 18
Creatinine 0.8
Glucose 97
Calcium 8.6
Total Bilirubin 1.1
AST 27
ALT 26
Alkaline Phosphatase 82
Vital Signs:
Vital Signs
Temp Pulse Resp BP Pulse Ox
98.9 F 80 12 137/69 92
07/11/24 11:00 07/11/24 11:00 07/11/24 11:00 07/11/24 11:00 07/11/24 11:00
I&O
07/10/24 07/11/24 07/12/24
06:59 06:59 06:59
Intake Total 7960 / 8035 1560 / 1560
Output Total 2325 / 2325 650 / 650
Balance 5635 / 5710 910 / 910
Data Reviewed
-
Total Time Spent with Patient (in minutes): 51
[2024-07-11 12:03] LABS: Glucose - Point of Care 135 mg/dl (70-99)
[2024-07-11 13:20] LABS: Glucose - Point of Care 141 mg/dl (70-99)
[2024-07-11 15:28] LABS: Glucose - Point of Care 111 mg/dl (70-99)
[2024-07-11 16:23] VITALS: BP 173/93
[2024-07-11] MEDS: LOVENOX 40 MG SC (16:37)
[2024-07-11 16:38] LABS: Glucose - Point of Care 84 mg/dl (70-99)
[2024-07-11] MEDS: CARAFATE SUSPENSION 1 GM PO ×2 (16:38→23:00)
[2024-07-11 19:14] LABS: Glucose - Point of Care 117 mg/dl (70-99)
[2024-07-11 20:58] LABS: Glucose - Point of Care 114 mg/dl (70-99)
[2024-07-11 21:57] LABS: Glucose - Point of Care 105 mg/dl (70-99)
[2024-07-11] MEDS: REMERON 30 MG PO (23:00)
[2024-07-11 23:53] VITALS: BP 182/93
[2024-07-12] MEDS: REGLAN 5 MG IV ×2 (00:02→08:10)
[2024-07-12 00:51] LABS: Glucose - Point of Care 104 mg/dl (70-99)
[2024-07-12 00:53] VITALS: BP 149/75
[2024-07-12 04:07] VITALS: BP 173/44
[2024-07-12] MEDS: APRESOLINE 10 MG IV (04:17)
[2024-07-12] MEDS: ZOFRAN 4 MG IV (04:18)
[2024-07-12 04:29] LABS: Glucose - Point of Care 75 mg/dl (70-99)
[2024-07-12 07:30] VITALS: BP 138/70
--- NOTE | 2024-07-12 07:32 | PN.DE.MGMTRT ---
Insulin Management
- -
07/12/2024 Diabetes Management F/U:
Patient admitted 07/08 with N & V and Hyperglycemia, DKA.
PMH HTN, HCL, T1DM, GERD. Prior to admission was using Medtronic insulin pump. A1C 7.6%, Cr .9, eGFR > 60
Patient is awake alert and oriented able to discuss diabetes management. Removed current infusion set, cannula kinked in half. Pointed out to patient that is the reason his glucose was so high. GAP closed and insulin pump was restarted 07/09.
Current pump settings:
basal 07/11 carb ratio 07/11 corrective target
12am 2.3 1.9 2 5 30 90 - 120
3am 2.6 1.8 2 5 30 90 - 120
7am 2.5 1.8 2 5 30 90 - 110
12pm 3 2.05 1.5 5 30 90 - 110
8pm 2.75 1.9 1.5 5 30 90 - 110
24 hour basal total 64.8 NOW 46.5
07/09 pump restarted @ ~2pm, glucose 545 @ 1747 and 517@ 2116. Nursing notified me of elevated glucose, requested infusion set be changed and correction taken.
07/10 Glucose did come down overnight, 154 this AM. Will make no change to basal rates. Clear liquids started with lunch, glucose pre lunch 84.
07/10 Patient had multiple episodes of hypoglycemia, will decrease basal rates and change correction factor.
07/11 Due to recurrent hypoglycemia basal rates were further changed as above and carb ratio and correction factors changed.
Patient inserted new Medtronic sensor. No more episodes of Hypoglycemia since. Glucose notably low normal 75 to 141.
07/12 FBG 118 this AM. Will make no changes to current pump settings. Will follow
Diabetes History
- -
Type of Diabetes: 1
Pre-Admission Diabetes Regimen
07/11/24
06:53
Creatinine 0.8
Lab Results
Hemoglobin A1c 7.6 % (4.0-5.6) H 10/08/24 04:12
Insulin Pump Settings
IP Diabetes Regimen
07/11/24 07/11/24 07/11/24
06:53 08:00 10:08
Glucose 97
POC Glucose 71 76
07/11/24 07/11/24 07/11/24
11:31 11:47 12:02
Glucose
POC Glucose 69 L 63 L 135 H
07/11/24 07/11/24 07/11/24
13:18 15:25 16:34
Glucose
POC Glucose 141 H 111 H 84
07/11/24 07/11/24 07/11/24
19:13 20:56 21:46
Glucose
POC Glucose 117 H 114 H 105 H
07/12/24 07/12/24
00:49 04:28
Glucose
POC Glucose 104 H 75
Patient Education
[2024-07-12 07:46] LABS: Glucose - Point of Care 107 mg/dl (70-99)
[2024-07-12] MEDS: SPIRIVA RESPIMAT 2.5 MCG 2 PUFF INH (07:55)
[2024-07-12] MEDS: SYMBICORT 160/4.5 MCG INHALER 2 PUFF INH ×2 (07:55→20:09)
[2024-07-12] MEDS: LIPITOR 40 MG PO (08:00)
[2024-07-12] MEDS: PLAVIX 75 MG PO (08:00)
[2024-07-12] MEDS: NORVASC 5 MG PO (08:00)
[2024-07-12] MEDS: COREG 6.25 MG PO ×3 (08:00→21:56)
[2024-07-12] MEDS: ZETIA 10 MG PO (08:00)
[2024-07-12] MEDS: CARAFATE SUSPENSION 1 GM PO ×3 (08:00→21:56)
[2024-07-12] MEDS: PEPCID 20 MG PO ×2 (08:00→21:56)
[2024-07-12] MEDS: ASPIR LOW (ENTERIC COATED) 81 MG PO (08:00)
[2024-07-12 09:53] LABS: ALT (SGPT) 24 U/L (0-50); AST (SGOT) 26 U/L (17-59); Albumin 3.6 g/dl (3.5-5.0); Alkaline Phosphatase 78 U/L (38-126); Blood Urea Nitrogen 18 mg/dl (9-20); Calcium 8.8 mg/dl (8.4-10.2); Carbon Dioxide 31 mmol/L (22-30); Chloride 93 mmol/L (98-107); Estimated Creatinine Clearance 93 ml/min; Glucose 118 mg/dl (70-99); Potassium 3.8 mmol/L (3.5-5.1); Sodium 136 mmol/L (135-145); Total Bilirubin 1.1 mg/dl (0.2-1.3); Total Protein 6.2 g/dl (6.3-8.2); eGFR > 60.00
[2024-07-12] MEDS: PT'S OWN INSULIN PUMP - NovoLOG SC ×4 (09:57→22:10)
[2024-07-12] MEDS: NON-FORMULARY ITEM 1 UNIT PO (11:29)
[2024-07-12] MEDS: NON-FORMULARY ITEM PO (11:29)
--- NOTE | 2024-07-12 11:48 | W.PN.GI.CBS2 ---
Addendum entered and electronically signed by Adal Soriano MD 07/12/24 18:52:
I saw and examined the patient.
The PA's note was reviewed and I agree with the note.
Comment:
Pt states he feels better. Anticipate d/c home tomorrow.
Original Note:
Today's Communication / Plan
-
as per plan
Assessment / Plan
-
64 yo M here with DKA, n/v, dysphagia/odynophagia. Similar admission in April.
N/v 2/2 DM gastroparesis which is then leading to severe reflux causing dysphagia/odynophagia.
Esophagram 07/10:
1. Obstruction of a swallowed barium-impregnated tablet at the gastroesophageal junction suspicious for impaired lower esophageal sphincter relaxation. No definitive fluoroscopic evidence for obstructing stricture or mass in the esophagus.
2. No fluoroscopic evidence for gastric outlet or small bowel obstruction.'
Nausea/Vomiting:
[place] some improvement in Remeron with n/v- Continue Remeron 30 mg hs. QTc normal 07/10/24.
Continue reglan prn.
protonix has been stopped and switch to Voquenza 20 mg - Our office is working on PA. Has been on: famotidine 20 bid, protonix 40 bid, lansoprazole 15 mg, zantac 150 mg, sucralfate. In addition to Voquenza will keep pepcid and sucralfate on.
Another option is dexilant 60 mg if Voquenza fails but cannot get inpatient. If Voquenza works for him we will give him samples prior to DC, until we can hopefully obtain med auth. Patient aware.
Message sent to Dr. Benavides to ensure pt has EGD scheduled outpatient off plavix.
On clear liquid diet so far he is tolerating with some mild dry heaves and reflux. When feels improved needs gastroparesis diet.
Subjective
Subjective
Date of Service: July 12, 2024
Patient states that he is feeling a little better today. He is tolerating liquids this am, but had some dry heaves and some reflux. Burning in his esophagus has improved. We provided [place] sample to Nursing that are awaiting verification from
Pharmacy to then be given to patient to see if this helps him. No abdominal pain. No BM so far today. He has a very very mild elevation in his baseline temp 99.3 intermittently overnight on and off.
Objective
Data Reviewed
Laboratory Data:
Laboratory Results
07/11/24 06:53
07/12/24 07:10
Laboratory Results
Magnesium 2.2 mg/dl (1.6-2.3) 07/10/24 01:36
Total Bilirubin 1.1 mg/dl (0.2-1.3) 07/12/24 07:10
AST 26 U/L (17-59) 07/12/24 07:10
ALT 24 U/L (0-50) 07/12/24 07:10
Alkaline Phosphatase 78 U/L (38-126) 07/12/24 07:10
Lipase 25 U/L (23-300) 07/08/24 14:19
Vital Signs and I&O:
Vital Signs
Temp Pulse Resp BP Pulse Ox
99.3 F 96 16 138/70 98
07/12/24 07:30 07/12/24 07:58 07/12/24 07:58 07/12/24 07:30 07/12/24 07:58
I&O
07/11/24 07/12/24 07/13/24
06:59 06:59 06:59
Intake Total 1560 / 1560 1200 / 1200
Output Total 650 / 650
Balance 910 / 910 1200 / 1200
Physical Exam
Physical Exam
HEENT: Anicteric
Cardiology: Normal Sinus Rhythm
Pulmonary: Clear
GI: Soft, Non Distended, Non Tender and Normal Bowel Sounds
Neuro: Non Focal
--- NOTE | 2024-07-12 12:34 | W.PN.HOSP.TC ---
Today's Communication/Plan
-
ADAT
Monitor diet tolerance
monitor BP
Assessment / Plan
Assessment / Plan
General: Well Developed and No Apparent Distress
HEENT: Normocephalic, Atraumatic and Moist Mucous Membranes
Respiratory: Clear to Auscultation
Cardiac: Regular Rhythm and S1/S2; Negative Murmur, Rub or Gallop
GI: Soft, Nontender, Nondistended and Normal Bowel Sounds; Negative Organomegaly
Rectal: Deferred by Provider
Musculoskeletal: No Clubbing, No Cyanosis and No Edema
Skin: Negative Rash
Neuro: Awake, Alert, Oriented, AO x 3, No Motor Deficits and Nonfocal/Grossly Intact
#Diabetic gastroparesis
#GERD/esophagitis
#Nausea vomiting likely could also be due to gastroparesis vs.? THC usage
Plan to stop PPI and Non formulary Voquezna-GI to provide
Reglan prn
Continue with Carafate and pepcid
Esophagram noted
May require endoscopy as outpatient vs. inpatient
clears for now and ADAT. states of dry heaves wtih liquids and afraid to advance further but will try later today.
GI following
#Primary hypertension elevated at times
Persistently elevated will need to increase Norvasc dose to 5mg. May need further uptitration
DC IV fluids
BP improving 138/70
#Nausea and vomiting and diarrhea likely second to viral gastroenteritis
Suspected sepsis secondary to above
Afebrile.
Antinausea meds IV as needed
If with loose stools check stool studies
If with fever check blood cultures
Chest x-ray noted
UA negative
If no improvement may require CT abdomen pelvis
Leukocytosis likely reactive. improving/downtrending. Afebrile. Resolved.
#Mild episode of diabetic ketoacidosis
Insulin-dependent diabetes mellitus
Elevated beta hydroxybutyrate. POC elevated.
Anion gap closed. Plan to start patient on insulin pump and to stop IV insulin infusion.
Diabetic nurse practitioner consultation
Episode of hypoglycemia noted and corrected
#CAD
Continue with aspirin and Plavix
#Hyperlipidemia
Continue with home regimen
DVT prophylaxis Lovenox
Anticipated Discharge: Within 24 hours
Subjective/Interval History
-
Date of Service: July 12, 2024
tolerated some liquids
will try to eat more later today
Objective Data
-
Labs:
Laboratory Results
07/12/24
07:10
Sodium 136
Potassium 3.8
Chloride 93 L
Carbon Dioxide 31 H
BUN 18
Creatinine 0.8
Glucose 118 H
Calcium 8.8
Total Bilirubin 1.1
AST 26
ALT 24
Alkaline Phosphatase 78
Vital Signs:
Vital Signs
Temp Pulse Resp BP Pulse Ox
99.3 F 96 16 138/70 98
07/12/24 07:30 07/12/24 07:58 07/12/24 07:58 07/12/24 07:30 07/12/24 07:58
I&O
07/11/24 07/12/24 07/13/24
06:59 06:59 06:59
Intake Total 1560 / 1560 1200 / 1200
Output Total 650 / 650
Balance 910 / 910 1200 / 1200
[2024-07-12 12:40] LABS: Glucose - Point of Care 86 mg/dl (70-99)
--- NOTE | 2024-07-12 15:18 | CM ---
CM reviewed chart, monitoring diet tolerance. CM will continue to follow for all discharge planning needs.
Plan; home when medically stable, no needs anticipated.
[2024-07-12 16:04] VITALS: BP 145/77
[2024-07-12 16:42] LABS: Glucose - Point of Care 71 mg/dl (70-99)
[2024-07-12] MEDS: LOVENOX 40 MG SC (18:02)
[2024-07-12 19:00] VITALS: BP 133/70
[2024-07-12] MEDS: REMERON 30 MG PO (21:56)
[2024-07-12 22:34] LABS: Glucose - Point of Care 83 mg/dl (70-99)
[2024-07-12 23:00] VITALS: BP 123/70
[2024-07-13 03:00] VITALS: BP 136/81
[2024-07-13 07:00] VITALS: BP 156/86
[2024-07-13] MEDS: SPIRIVA RESPIMAT 2.5 MCG 2 PUFF INH (07:46)
[2024-07-13] MEDS: SYMBICORT 160/4.5 MCG INHALER 2 PUFF INH (07:46)
[2024-07-13 07:59] LABS: ALT (SGPT) 23 U/L (0-50); AST (SGOT) 23 U/L (17-59); Albumin 3.5 g/dl (3.5-5.0); Alkaline Phosphatase 84 U/L (38-126); Blood Urea Nitrogen 17 mg/dl (9-20); Carbon Dioxide 36 mmol/L (22-30); Chloride 94 mmol/L (98-107); Estimated Creatinine Clearance 83 ml/min; Glucose 106 mg/dl (70-99); Potassium 4.8 mmol/L (3.5-5.1); Sodium 135 mmol/L (135-145); eGFR > 60.00
[2024-07-13 08:23] LABS: Glucose - Point of Care 95 mg/dl (70-99)
[2024-07-13] MEDS: PT'S OWN INSULIN PUMP - NovoLOG SC ×2 (10:11→13:04)
[2024-07-13] MEDS: NON-FORMULARY ITEM 1 UNIT PO (10:13)
[2024-07-13] MEDS: ZETIA 10 MG PO (10:13)
[2024-07-13] MEDS: NORVASC 5 MG PO ×2 (10:13→13:05)
[2024-07-13] MEDS: CARAFATE SUSPENSION 1 GM PO (10:13)
[2024-07-13] MEDS: ASPIR LOW (ENTERIC COATED) 81 MG PO (10:14)
[2024-07-13] MEDS: LIPITOR 40 MG PO (10:14)
[2024-07-13] MEDS: PEPCID 20 MG PO (10:14)
[2024-07-13] MEDS: COREG 6.25 MG PO (10:14)
[2024-07-13] MEDS: PLAVIX 75 MG PO (10:14)
[2024-07-13 10:57] VITALS: BP 155/80
--- NOTE | 2024-07-13 11:03 | W.PN.UPDATE ---
Update Note
Progress Note Update
Pt continues to feel better, can d/c home with sample of meds provided by us. GI s/o.
[2024-07-13 11:40] LABS: Glucose - Point of Care 87 mg/dl (70-99)
--- NOTE | 2024-07-13 11:53 | W.PN.HOSP.TC ---
Today's Communication/Plan
-
Advanced diet
if tolerates -plan for home
Assessment / Plan
Assessment / Plan
General: Well Developed and No Apparent Distress
HEENT: Normocephalic, Atraumatic and Moist Mucous Membranes
Respiratory: Clear to Auscultation
Cardiac: Regular Rhythm and S1/S2; Negative Murmur, Rub or Gallop
GI: Soft, Nontender, Nondistended and Normal Bowel Sounds; Negative Organomegaly
Rectal: Deferred by Provider
Musculoskeletal: No Clubbing, No Cyanosis and No Edema
Skin: Negative Rash
Neuro: Awake, Alert, Oriented, AO x 3, No Motor Deficits and Nonfocal/Grossly Intact
#Diabetic gastroparesis
#GERD/esophagitis
#Nausea vomiting likely could also be due to gastroparesis vs.? THC usage
Plan to stop PPI and Non formulary Voquezna-GI provided samples.
Reglan prn
Continue with Carafate and pepcid
Esophagram noted
May require endoscopy as outpatient vs. inpatient
ADAT. If tolerates solids plan to dc later today
GI following
#Primary hypertension elevated at times
Persistently elevated will need to increase Norvasc dose to 10 mg
DC IV fluids
#Nausea and vomiting and diarrhea likely second to viral gastroenteritis
Suspected sepsis secondary to above
Afebrile.
Antinausea meds IV as needed
If with loose stools check stool studies
If with fever check blood cultures
Chest x-ray noted
UA negative
If no improvement may require CT abdomen pelvis
Leukocytosis likely reactive. improving/downtrending. Afebrile. Resolved.
#Mild episode of diabetic ketoacidosis
Insulin-dependent diabetes mellitus
Elevated beta hydroxybutyrate. POC elevated.
Anion gap closed. Plan to start patient on insulin pump and to stop IV insulin infusion.
Diabetic nurse practitioner consultation
Episode of hypoglycemia noted and corrected
#CAD
Continue with aspirin and Plavix
#Hyperlipidemia
Continue with home regimen
DVT prophylaxis Lovenox
Anticipated Discharge: Today
Subjective/Interval History
-
Date of Service: July 13, 2024
states feeling better
tolerated liquids and would like to try solids
Objective Data
-
Labs:
Laboratory Results
07/13/24
06:25
Sodium 135
Potassium 4.8 D
Chloride 94 L
Carbon Dioxide 36 H
BUN 17
Creatinine 0.9
Glucose 106 H
Calcium 9.0
Total Bilirubin 1.0
AST 23
ALT 23
Alkaline Phosphatase 84
Vital Signs:
Vital Signs
Temp Pulse Resp BP Pulse Ox
97.7 F 81 18 155/80 95
07/13/24 10:57 07/13/24 10:57 07/13/24 10:57 07/13/24 10:57 07/13/24 10:57
I&O
07/12/24 07/13/24 07/14/24
06:59 06:59 06:59
Intake Total 1200 / 1200 1000 / 1000
Balance 1200 / 1200 1000 / 1000
--- NOTE | 2024-07-13 13:39 | W.DCSUMMARY ---
Discharge Summary
Discharge Data
Date of Admission: 07/08/24
Date of Discharge: 07/13/24
-
Pending Results: No
Hospital Course
64-year-old male past medical history of diabetes mellitus on insulin pump, diabetic gastroparesis, primary hypertension, CAD, hyperlipidemia presenting from home with complaints of nausea vomiting diarrhea. Patient also stated of significantly
high elevated blood glucose. Patient was found to be in mild DKA and was started on DKA protocol with IV insulin infusion and was admitted to the ICU. Resource Economist was consulted. Patient anion gap metabolic acidosis close and patient was restarted
back on his insulin pump. Patient's sugar stabilized. Patient persistent nausea or vomiting. Gastroenterology was consulted. Patient underwent esophagogram without any significant obstruction. Patient diet was kept on liquids. IV fluids were
continued. Patient was tolerating clear liquid diet and was eventually transition to solids. Patient also with significantly elevated blood pressure and Norvasc dose was slowly uptitrated. Patient was taken off PPI and was started on Voquezna and
samples were provided by gastroenterology to patient upon discharge. Patient will need to obtain further medication via GI office. Patient was recommended follow-up with his primary Neurologist Dr. Jessee Benavides on Discharge. Also recommend to
follow with primary doctor for further blood pressure management.
Discharge Plan
-
Patient Disposition: Home (Routine Discharge)
Discharge Diagnosis/Procedures: Diabetic gastroparesis
Nausea and vomiting diarrhea likely 03 May with large
Mild episode of diabetic ketoacidosis
Primary hypertension uncontrolled
Condition: Fair
Diet: Diabetic, Carb Controlled
Activity: With assistance and As tolerated
Driving Restrictions: As prior to admission
Referrals:
Ovi Benavides MD [Active] - None
Maria Del Carmen Davidson PA-C [Family Provider] - in less than 1 week
Prescriptions:
New
mirtazapine 30 mg Tablet
30 mg PO HS 30 Days Qty: 30 0RF
amlodipine [Norvasc] 10 mg tablet
10 mg PO DAILY 30 Days Qty: 30 0RF
Voquezna 20 mg tablet
20 mg PO DAILY Qty: 30 0RF
Continued
atorvastatin 40 mg Tablet
40 mg PO DAILY
therapeutic multivitamin Tablet
1 tab PO DAILY
aspirin 81 mg Tablet,Delayed Release (Dr/Ec)
81 mg PO DAILY
insulin aspart U-100 100 unit/mL Solution
0 unit SC .VIA PUMP
Patient Comments:
07/08/24: Patient uses his own insulin pump.
ezetimibe 10 mg Tablet
10 mg PO DAILY
carvedilol 6.25 mg Tablet
6.25 mg PO BID Qty: 60 0RF
clopidogrel 75 mg Tablet
75 mg PO DAILY Qty: 30 0RF
Trelegy Ellipta 200-62.5-25 mcg blister with device
1 inh INHALATION R DAILY
sucralfate 100 mg/mL Suspension
1 g PO BID 30 Days Qty: 600 0RF
famotidine 20 mg tablet
20 mg PO BID
Changed
metoclopramide HCl 10 mg tablet
10 mg PO BID PRN (Reason: nausea/vomiting) Qty: 0 0RF
Discontinued
amlodipine 2.5 mg tablet
2.5 mg PO DAILY 30 Days Qty: 30 0RF
pantoprazole [Protonix] [address] for susp in packet
40 mg PO BID
Discharge Date and Time
Print Language: CITIZEN OF [place]
--- NOTE | 2024-07-13 14:55 | CM ---
Patient is for discharge to home no needs.
Plan; Home no needs.
== END 2024-07-13 15:30 | disposition home or self-care (01) | DRG 637 ==
LOC: 4 WEST ACU 16:42
PROVIDERS: Emergency Medicine; Nurse Practitioner Gerontology; Physician Assistant; ADMITTING PHYSICIAN Hospitalist; CONSULT PHYSICIAN Internal Medicine Gastroenterology; EMERGENCY PHYSICIAN Student in an Organized Health Care Education/Training Program; FAMILY PHYSICIAN Physician Assistant; OTHER PHYSICIAN Internal Medicine Critical Care Medicine
DX: E10.10 Type 1 diabetes mellitus with ketoacidosis without coma (principal); A41.9 Sepsis, unspecified organism; E10.43 Type 1 diabetes mellitus with diabetic autonomic (poly)neuropathy; E66.9 Obesity, unspecified; I10 Essential (primary) hypertension; J45.50 Severe persistent asthma, uncomplicated; E10.649 Type 1 diabetes mellitus with hypoglycemia without coma; R13.10 Dysphagia, unspecified; K31.84 Gastroparesis; A08.4 Viral intestinal infection, unspecified; E78.00 Pure hypercholesterolemia, unspecified; G47.33 Obstructive sleep apnea (adult) (pediatric); I25.10 Atherosclerotic heart disease of native coronary artery without angina pectoris; I25.2 Old myocardial infarction; K21.00 Gastro-esophageal reflux disease with esophagitis, without bleeding; K59.00 Constipation, unspecified; Z96.41 Presence of insulin pump (external) (internal); Z79.02 Long term (current) use of antithrombotics/antiplatelets; Z79.4 Long term (current) use of insulin; Z79.82 Long term (current) use of aspirin; Z79.899 Other long term (current) drug therapy; Z87.891 Personal history of nicotine dependence; Z87.19 Personal history of other diseases of the digestive system; Z88.2 Allergy status to sulfonamides
CPT/HCPCS: 71045; 74221; 80048; 80053; 81003; 82010; 82805; 82947; 82962; 83036; 83690; 83735; 85025; 85027; 86803; 93005; 94640; 96361; 96374; 96375; 99291; J3480

== ENCOUNTER → 2024-08-02 06:23 | Day surgery (SDC) | payer OTHER, SELFPAY ==
[2024-08-02 07:47] LABS: Glucose - Point of Care 134 mg/dl (70-99)
== END ==
LOC: GI 06:23
PROVIDERS: ATTENDING PHYSICIAN Specialist
DX: R11.2 Nausea with vomiting, unspecified (principal); R13.10 Dysphagia, unspecified; K22.89 Other specified disease of esophagus
CPT/HCPCS: 43239; 88305; 82962

== ENCOUNTER 2024-12-20 10:10 | Inpatient (IN) | payer OTHER, SELFPAY ==
[2024-12-18] VITALS (8 sets, daily range): BP systolic 126–192; BP diastolic 73–97; BMI 27.8
[2024-12-18 14:21] LABS: % Basophils 0.2 % (0-2); % Immature Granulocytes 0.5 % (0-0.5); % Lymphocytes 8.8 % (20.5-51.1); % Monocytes 6.2 % (1.7-9.3); % Neutrophils 84.3 % (42.2-75.2); Absolute Immature Granulocytes 0.1 10^3/uL (0-0.05); Absolute Lymphocytes 1.2 10^3/uL (1.2-3.4); Absolute Monocytes 0.8 10^3/uL (0.1-0.6); Hematocrit 49.4 % (39.0-52.0); Hemoglobin 17.8 g/dL (13.0-18.0); Mean Corpuscular Hgb 29.1 pg (27.0-31.0); Mean Corpuscular Volume 80.7 fL (80.0-94.0); Mean Platelet Volume 9.8 fL (7.4-10.4); Nucleated Red Blood Cells % 0 % (-); Platelet Count 238 10^3/uL (130-400); Red Blood Cell Count 6.12 10^6/uL (4.70-6.10); Red Cell Dist. Width 13.8 % (11.5-14.5)
[2024-12-18 14:36] LABS: ALT (SGPT) 35 U/L (0-50); AST (SGOT) 33 U/L (17-59); Albumin 4.3 g/dl (3.5-5.0); Alkaline Phosphatase 129 U/L (38-126); Blood Urea Nitrogen 19 mg/dl (9-20); Calcium 9.8 mg/dl (8.4-10.2); Carbon Dioxide 23 mmol/L (22-30); Chloride 91 mmol/L (98-107); Glucose 279 mg/dl (70-99); Potassium 3.9 mmol/L (3.5-5.1); Sodium 129 mmol/L (135-145); Total Protein 7.2 g/dl (6.3-8.2); eGFR > 60.00
--- NOTE | 2024-12-18 14:55 | ED.GENMED ---
History of Present Illness
<Radha Rodriguez PA-C - Last Filed: 12/18/24 18:30>
General
Chief Complaint: Abdominal Symptoms
Source: patient
Exam Limitations: none
Time Seen by Provider: 12/18/24 14:55
Nursing documentation reviewed up to this point in time: agreed with
History of Present Illness
History of Present Illness:
This is 64-year-old male with past medical history of diabetic gastroparesis, hypertension, hyperlipidemia, GERD, who presents emergency department today with concerns of nausea and vomiting for the past 4 days. Patient reports that he feels that
this is related to his gastroparesis. He has no abdominal pain associated with this, no chest pain, no throat pain or trouble swallowing. He has had looser stools as well. Patient states that usually when he gets bouts of nausea vomiting with
this condition it will last a day or maybe 2 but is never lasted this long before. Patient reports that he follows with Dr. Benavides with [place]. Patient reports that he tried Zofran at home without relief. Also has a decreased
appetite as well. He has no history of small bowel obstruction.
Past History
<Radha Rodriguez PA-C - Last Filed: 12/18/24 18:30>
Past History
ED Past Medical History: HTN, Hypercholesterolemia and IDDM
ED Past Surgical History: None
Social History
Tobacco: Former smoker
Alcohol: Occasional
Personal:
Living: with family
Employment: Employed
Review of Systems
<Radha Rdoriguez PA-C - Last Filed: 12/18/24 18:30>
Review of Systems
All Other Systems: ROS reviewed and negative except as documented in HPI and ROS
Phy Exam
<Radha Rodriguez PA-C - Last Filed: 12/18/24 18:30>
Physical Exam
Physical Exam:
General: Patient is well appearing and in no acute distress; non-toxic
Skin: Warm and dry, no rashes or lesions
Head: Normocephalic, atraumatic
Eyes: Sclera non-icteric. EOMs intact.
Cardiac: Mildly tachycardic otherwise regular rhythm, no murmurs
Peripheral Vascular: No lower extremity swelling or edema
Pulm: Normal respiratory effort, no wheezes, rales, rhonchi
Abdomen: No abdominal tenderness to palpation, no abdominal distention, no guarding
Neuro: CN II-XII intact, no focal neurologic deficits.
Psychiatric: Appropriate mood and affect.
Course
<Radha Rodriguez PA-C - Last Filed: 12/18/24 18:30>
Orders/Labs/Results
Orders:
Orders
12/18/24 14:12
CBC/With Diff [Complete Blood Count/With Diff] Urgent
Comprehensive Metabolic Panel Urgent
Lipase Urgent
Comment: ADD ON
12/18/24 15:26
0.9% Sodium Chloride 1000 ml [Nss] 1,000 ml IV BOLUS
Ondansetron Injectable [Zofran] 4 mg IV NOW STA
12/18/24 15:29
Add On- LAB Urgent
Tests Added?: lipase
12/18/24 16:54
Diphenhydramine [Benadryl] 12.5 mg IV NOW STA
Metoclopramide [Reglan] 10 mg IV NOW STA
Abnormal Lab Results
12/18/24
14:12
WBC 13.0 H 10^3/uL
(4.8-10.8)
RBC 6.12 H 10^6/uL
(4.70-6.10)
Abs Immat Gran (auto) 0.1 H 10^3/uL
(0-0.05)
Absolute Neuts (auto) 11.0 H 10^3/uL
(1.4-6.5)
Absolute Monos (auto) 0.8 H 10^3/uL
(0.1-0.6)
Neutrophils % 84.3 H %
(42.2-75.2)
Lymphocytes % 8.8 L %
(20.5-51.1)
Sodium 129 L mmol/L
(135-145)
Chloride 91 L mmol/L
(98-107)
Glucose 279 H mg/dl
(70-99)
Alkaline Phosphatase 129 H U/L
(38-126)
12/18/24 14:12
12/18/24 14:12
Vital Signs
Initial and Last Documented VS:
Initial Vital Signs
Temp Pulse Resp BP Pulse Ox
98.6 F 74 16 134/73 98
12/18/24 14:04 12/18/24 14:04 12/18/24 14:04 12/18/24 14:04 12/18/24 14:04
Last Documented Vital Signs
Temp Pulse Resp BP Pulse Ox
98.6 F 74 16 134/73 98
12/18/24 14:04 12/18/24 14:04 12/18/24 14:04 12/18/24 14:04 12/18/24 14:04
<Michele Simpson, DO - Last Filed: 12/18/24 18:11>
Orders/Labs/Results
Orders:
Orders
12/18/24 14:12
CBC/With Diff [Complete Blood Count/With Diff] Urgent
Comprehensive Metabolic Panel Urgent
Lipase Urgent
Comment: ADD ON
12/18/24 15:26
0.9% Sodium Chloride 1000 ml [Nss] 1,000 ml IV BOLUS
Ondansetron Injectable [Zofran] 4 mg IV NOW STA
12/18/24 15:29
Add On- LAB Urgent
Tests Added?: lipase
12/18/24 16:54
Diphenhydramine [Benadryl] 12.5 mg IV NOW STA
Metoclopramide [Reglan] 10 mg IV NOW STA
Abnormal Lab Results
12/18/24
14:12
WBC 13.0 H 10^3/uL
(4.8-10.8)
RBC 6.12 H 10^6/uL
(4.70-6.10)
Abs Immat Gran (auto) 0.1 H 10^3/uL
(0-0.05)
Absolute Neuts (auto) 11.0 H 10^3/uL
(1.4-6.5)
Absolute Monos (auto) 0.8 H 10^3/uL
(0.1-0.6)
Neutrophils % 84.3 H %
(42.2-75.2)
Lymphocytes % 8.8 L %
(20.5-51.1)
Sodium 129 L mmol/L
(135-145)
Chloride 91 L mmol/L
(98-107)
Glucose 279 H mg/dl
(70-99)
Alkaline Phosphatase 129 H U/L
(38-126)
12/18/24 14:12
12/18/24 14:12
Vital Signs
Initial and Last Documented VS:
Initial Vital Signs
Temp Pulse Resp BP Pulse Ox
98.6 F 74 16 134/73 98
12/18/24 14:04 12/18/24 14:04 12/18/24 14:04 12/18/24 14:04 12/18/24 14:04
Last Documented Vital Signs
Temp Pulse Resp BP Pulse Ox
98.6 F 74 16 134/73 98
12/18/24 14:04 12/18/24 14:04 12/18/24 14:04 12/18/24 14:04 12/18/24 14:04
<Radha Rodriguez PA-C - Last Filed: 12/18/24 18:30>
MDM/Problems Addressed
Differential Diagnosis Includes:
ddx include viral gastroenteritis, gastroparesis, GERD, eosinophilic esophagitis
MDM/Problems Addressed:
This is a 64-year-old male who presents emergency department today with multiple days of intractable nausea and vomiting. He is not able to tolerate sips of water and has not been eating for multiple days. He suspect this is related to his
gastroparesis. He did have confirmed gastro paresis clinic gastric emptying study then 2023. Also, endoscopy done in August 2024 shows findings concerning for eosinophilic esophagitis. On exam patient is well-appearing in no acute distress he
has no abdominal tenderness. His vitals are stable he is afebrile. No indication for CAT scan imaging at this time. Suspect patient's symptoms related to gastroparesis versus a component of eosinophilic esophagitis. Patient was given IV fluids
and continues to be symptomatic despite treatment. Patient feels if he goes home his symptoms would continue to worsen.
Chronic conditions affecting care:
Hypertension, GERD, diabetes
<Radha Rodriguez PA-C - Last Filed: 12/18/24 18:30>
*Critical Care Note
Total Time (30-74mins, 75-104mins- exclusive of procedures): Not Applicable
ED Attending Note
<Radha Rodriguez PA-C - Last Filed: 12/18/24 18:30>
-
Portions of this chart may have been created with voice recognition software.� Occasional wrong word or��sound alike� substitutions may have occurred due to the inherent limitations of voice recognition software.
<Michele Simpson DO - Last Filed: 12/18/24 18:11>
ED Attending Note
Patient seen and examined by attending physician: Yes
I performed the substantive portion of visit, reviewed & personally made and approve the management plan that is documented in note by myself or BLUE.: Yes
ED Attending Note:
I evaluated patient at bedside. The patient has a soft nontender abdomen. Mild leukocytosis is noted. He was only able to take 1 sip of water here and feels he will be right back and we discharged him. We did try Reglan with Benadryl along with
Zofran and fluids. He has no appetite. No history of bowel obstruction. Suspect diabetic gastroparesis with possible symptoms of eosinophilic esophagitis.
Discharge Plan
Departure
Patient Disposition: Admit
Date of Disposition: 12/18/24
Time of Disposition: 18:13
Admit to: Med/Surg
Presentation/result/management discussed w/ accepting MD/DO: Hospitalist
Patient with high blood pressure during this ER visit?: Yes
Condition: Good
Discharge Problem:
Dehydration, Intractable nausea and vomiting
Prescriptions:
No Action
atorvastatin 40 mg Tablet
40 mg PO DAILY
therapeutic multivitamin Tablet
1 tab PO DAILY
aspirin 81 mg Tablet,Delayed Release (Dr/Ec)
81 mg PO DAILY
ezetimibe 10 mg Tablet
10 mg PO DAILY
carvedilol 6.25 mg Tablet
6.25 mg PO BID Qty: 60 0RF
clopidogrel 75 mg Tablet
75 mg PO DAILY Qty: 30 0RF
sucralfate 100 mg/mL Suspension
1 g PO BID 30 Days Qty: 600 0RF
famotidine 20 mg tablet
20 mg PO BID
amlodipine 5 mg Tablet
5 mg PO DAILY
Breztri Aerosphere 160-9-4.8 mcg/actuation Hfa Aerosol Inhaler
2 inh INHALATION R BID
Voquezna 10 mg Tablet
10 mg PO DAILY
Patient's Own Insulin Pump
1 sliding scale dose SC .CONTINUOUS
Patient Comments:
12/18/24: Patient still using insulin aspart, has not switched to new insulin lispro yet
metoclopramide HCl 10 mg tablet
10 mg PO BIDPRN PRN (Reason: nausea/vomiting)
Referrals:
Maria Del Carmen Davidson PA-C [Family Provider] -
Interventions
Interventions:
*Risk Screen - Suicide Last Done: 12/18/24 14:04
*Neglect/Abuse Screening Last Done: 12/18/24 14:04
Discharge Date and Time
Print Language: GE[place]GI[place]
[2024-12-18 15:47] LABS: Lipase 97 U/L (23-300)
[2024-12-18] MEDS: ZOFRAN 4 MG IV (16:28)
[2024-12-18] MEDS: NSS 1000 IV ×2 (16:28→22:10)
[2024-12-18] MEDS: REGLAN 10 MG IV (17:08)
[2024-12-18] MEDS: BENADRYL 12.5 MG IV (17:08)
--- NOTE | 2024-12-18 18:16 | HPS.HSE ---
Addendum entered and electronically signed by Shahid Arevalo MD 12/18/24 20:34:
see update note
Original Note:
Family Physician
-
Family Physician: Maria Del Carmen Davidson
Chief Complaint
-
intractable nausea and vomiting
History of Present Illness
Patient is a 64-year-old male with past medical history significant for diabetes mellitus insulin-dependent, diabetic gastroparesis, primary hypertension, hyperlipidemia, CAD, esophagitis, GERD and Hx of tobacco abuse who presented to [facility] ED for evaluation of intractable nausea and vomiting. Patient reports that the nausea and vomiting starting Monday after breakfast and he has been unable to hold anything down since then. He reports that he has been hot and cold but no
fevers taken. He reports diarrhea on Monday and very little output since. He also complains of severe weakness and needing help with every day ADLs. He has history of gastroparesis and this is similar to symptoms with previous episodes. He denies
any cough, shortness of breath, chest pain, constipation or urinary symptoms.
Medical History
Past Medical History
Past Medical History: Reports Other
Additional Past Medical History:
diabetes mellitus insulin-dependent
diabetic gastroparesis
primary hypertension
hyperlipidemia
CAD
esophagitis
GERD
Hx of tobacco abuse
Past Surgical History: Reports Other
Additional Past Surgical History:
nasal surgery: deviated septum 2009-07-13
cardiac cath 01/2024
herniated disc repair - lumbar spine 2012
Lt rotator cuff repair 1999
Social History
Tobacco: Former Smoker (Used to smoke greater than 1 pack a day)
Alcohol: Occasional (Drinks beer over the weekend)
Personal:
Living: With Family
Family History
Family History: Not pertinent
Allergies / Home Medications
Allergies reflects when Allergies were last updated in [facility].
Home Medications with original date entered in [facility]
Allergy/Medication List:
Allergies
Allergy/AdvReac Type Severity Reaction Status Date / Time
Sulfa (Sulfonamide Allergy Itching, Verified 12/18/24 14:03
Antibiotics) hives
Home Medications
aspirin 81 mg tablet,delayed release 81 mg PO DAILY Blood Clot Prevention/Tx 01/21/24
atorvastatin 40 mg tablet 40 mg PO DAILY High Cholesterol 01/21/24
ezetimibe 10 mg tablet 10 mg PO DAILY High Cholesterol 01/21/24
therapeutic multivitamin 1 tab PO DAILY Supplement 01/21/24
carvedilol 6.25 mg tablet 6.25 mg PO BID #60 tabs 01/24/24
clopidogrel 75 mg tablet 75 mg PO DAILY #30 tabs 01/24/24
sucralfate 100 mg/mL oral suspension 1 g (10 mL) PO BID 1 month #600 mL 04/10/24
famotidine 20 mg tablet 20 mg PO BID Gastrointestinal Issue 07/08/24
Patient's Own Insulin Pump 1 sliding scale dose SC .CONTINUOUS 12/18/24
amlodipine 5 mg tablet 5 mg PO DAILY 12/18/24
budesonide 160 mcg-glycopyr 9 mcg-formot 4.8 mcg/actuation HFA inhaler (Breztri Aerosphere) 2 inh inhalation R BID 12/18/24
metoclopramide HCl 10 mg tablet 10 mg PO BIDPRN PRN nausea/vomiting 12/18/24
vonoprazan 10 mg tablet (Voquezna) 10 mg PO DAILY 12/18/24
Review of Systems
-
Constitutional: Reports Fatigue and Chills
EENT: Reports No Symptoms
Respiratory: Reports No Symptoms
Cardiac: Reports No Symptoms
Abdomen/GI: Reports Nausea, Vomiting and Diarrhea
: Reports No Symptoms
Musculoskeletal: Reports No Symptoms
Skin: Reports No Symptoms
Neurological: Reports No Symptoms
Endocrine: Reports No Symptoms
Hematologic/Lymphatic: Reports No Symptoms
Psych: Reports No Symptoms
Physical Exam
Vital Signs
Vital Signs
Temp Pulse Resp BP Pulse Ox
98.6 F 74 16 134/73 98
12/18/24 14:04 12/18/24 14:04 12/18/24 14:04 12/18/24 14:04 12/18/24 14:04
Physical Exam
General: Well Developed, Well Nourished, No Apparent Distress, Comfortable and Conversant
HEENT: NormoCephalic, Moist mucous membranes, Atraumatic, [place] Conjunctivae, Nose Appears Normal and Ears Appear Normal
Respiratory: Clear
Cardiac: S1/S2 and Regular Rhythm
Breast: Deferred by me
GI: Soft, Non Tender, Non Distended and Normal Bowel Sounds (hypoactive in all quadrants ); No Organomegaly
Rectal: Deferred by Provider
Genito-urinary: Deferred by me
Musculoskeletal: No Clubbing, No Cyanosis and No Edema
Skin: IV/Catheter Site; No Rash
Neuro: Awake, Alert, AO x 3 and Nonfocal/grossly intact
Psych: Calm and Intact Judgment/Insight
Laboratory Results
-
12/18/24 14:12
12/18/24 14:12
Laboratory Results
Total Bilirubin 1.0 mg/dl (0.2-1.3) 12/18/24 14:12
AST 33 U/L (17-59) 12/18/24 14:12
ALT 35 U/L (0-50) 12/18/24 14:12
Alkaline Phosphatase 129 U/L (38-126) H 12/18/24 14:12
Lipase 97 U/L (23-300) 12/18/24 14:12
Data Reviewed
-
Lab Data: Labs Reviewed by me (WBC 13.0, Neut 84.3, Na+ 129)
Impression/Plan
-
IMPRESSION/PLAN:
#intractable nausea and vomiting likely 2/2 diabetic gastroparesis vs. hyperemesis
WBC 13.0, Neut 84.3, Na+ 129
- Admit to med/surg
- IVF
- supportive care
- monitor BMP
- consult GI
#diabetes mellitus insulin-dependent
- AccuCheck AC & HS
- SSI
- pt own insulin pump
- consult Diabetic DATE NIGHT SITTER
#primary hypertension
- continue amlodipine and carvedilol
#hyperlipidemia
#CAD
- continue aspirin, atorvastatin, clopidogrel and ezetimibe
#esophagitis
#GERD
- continue famotidine, sucralfate and vonoprazan
#obstructive sleep apnea
#Hx of tobacco abuse
Code status: full code
DVT prophylaxis: Lovenox Sq
--- NOTE | 2024-12-18 19:36 | W.PN.UPDATE ---
Update Note
Progress Note Update
This note serves as an addendum to the H&P by rod and tube straightener BLUE Dinora Garcia
HPI
64M HX IDDM on pump , HX diabetic gastroparesis per gastric emptying studying as off 04/08/24, extensive GERD sen at ER
- pw N/V for the past 4 days
- severe dry heaving at home and was unable to tolerate even sips of water
- had bowl movements, no belly pain, chest pain, dysphagia.
Reports Prescription INH Marijuana 2-3 hits per week
At ER:
- inability to tolerate PO.
- treated with doses of Reglan, Zofran, Benadryl, iv fluids. dehydration
PHX; see above
Vital Signs
Temp Pulse Resp BP Pulse Ox
98.6 F 94 18 178/85 94
12/18/24 14:04 12/18/24 19:01 12/18/24 19:01 12/18/24 19:01 12/18/24 19:01
PE
Gen: no acute distress; non-toxic
HEENT: moist OM
Neck: supple
Lungs: CTA
Cor: RRR S1 S2
Abdomen: soft NT NG
CABLE SPLICER ASSISTANT: AAO3
MS: no edema
Psych: appropriate
Data
07/11/24 07/13/24 12/18/24
06:53 06:25 14:12
WBC 13.0 H
Hgb 17.8
MCV 85.6 80.7
Plt Count 238
Sodium 135 129 L
Chloride 94 L 91 L
Creatinine 0.9 1.0
eGFR > 60.00 > 60.00
Glucose 106 H 279 H
Total Protein 6.0 L 7.2
Last hospitalist admission: 07/08/24 -07/13/24
gastroparesis
Nausea and vomiting diarrhea
Mild episode of diabetic ketoacidosis
Primary hypertension uncontrolled
ASSESSMENT & PLAN
Acute N/V for 4 days with dehydration
Intolerant to PO
Hyponatremia 2/2 to dehydration s/p 1 NS at ER
Occasional use of prescription INH Marijuana 1-2 time per week to sleep : HX not suggestive of THC use disorder
DDX: more likely Diabetic gastroparesis >>> less likely Cannabinoid hyperemesis syndrome >> less liklely viral GE > least likely DKA
- Ful liquid and IV NS
- Anti emetics
- check BHB
- check UDS
- f/ BMP in AM observe Na
- GI consult
IDDM on pump with N/V and dehydration
Intolerant to PO
Normocarb HCO3 23
NAG MA at 14
- IVF
- check BHB
- cont Insulin Pump at basal level
- Hold additional dose of of insulin coz he is not eating
- cont Glucose monitor
- Security Advisor consult for gastroparesis and DM diet
- DM HEEL SPRAYER FIRST consult for AM for insulin and pump management
Benign HTN
- on Norvasc 5 mg daily and Carvedilol 6.25 mg BID
CAD HX
- on DAPL aspirin and Plavix
Hyperlipidemia
- on Ezetimibe plus Atorvastatin
DVT Px: LMWH
Full code
IP MS
[2024-12-18] MEDS: PT'S OWN INSULIN PUMP - NovoLOG SC (22:06)
[2024-12-18] MEDS: CARAFATE SUSPENSION 1 GM PO (22:09)
[2024-12-18] MEDS: COREG 6.25 MG PO (22:09)
[2024-12-18] MEDS: PEPCID 20 MG PO (22:09)
[2024-12-18] MEDS: APRESOLINE 5 MG IV (22:10)
[2024-12-18 22:21] LABS: B-Hydroxybutyrate 2.88 mmol/L (0.02-0.27)
[2024-12-18] MEDS: FLUSH (NSS) 1 FLUSH IV (23:53)
[2024-12-19] VITALS (10 sets, daily range): BP systolic 109–188; BP diastolic 56–110; BMI 27.8; BMI 27.6
[2024-12-19 00:25] LABS: Glucose - Point of Care 141 mg/dl (70-99)
[2024-12-19] MEDS: ZOFRAN 4 MG IV ×2 (05:10→11:10)
[2024-12-19] MEDS: APRESOLINE 5 MG IV ×2 (05:15→17:43)
[2024-12-19 05:25] LABS: Blood Urea Nitrogen 20 mg/dl (9-20); Carbon Dioxide 29 mmol/L (22-30); Chloride 91 mmol/L (98-107); Estimated Creatinine Clearance 93 ml/min; Glucose 140 mg/dl (70-99); Potassium 3.8 mmol/L (3.5-5.1); Sodium 129 mmol/L (135-145); eGFR > 60.00
[2024-12-19] MEDS: SYMBICORT 160/4.5 MCG INHALER 2 PUFF INH ×2 (08:17→20:01)
[2024-12-19] MEDS: SPIRIVA RESPIMAT 2.5 MCG 2 PUFF INH (08:17)
[2024-12-19] MEDS: THERAGRAN 1 TABLET PO (08:49)
[2024-12-19] MEDS: NORVASC 5 MG PO (08:49)
[2024-12-19] MEDS: LIPITOR 40 MG PO (08:49)
[2024-12-19] MEDS: PLAVIX 75 MG PO (08:49)
[2024-12-19] MEDS: COREG 6.25 MG PO ×2 (08:50→19:35)
[2024-12-19] MEDS: ZETIA 10 MG PO (08:50)
[2024-12-19] MEDS: CARAFATE SUSPENSION 1 GM PO ×2 (08:50→19:35)
[2024-12-19] MEDS: NSS 1000 IV ×2 (08:50→19:35)
[2024-12-19] MEDS: PEPCID 20 MG PO ×2 (08:50→19:35)
[2024-12-19] MEDS: ASPIR LOW (ENTERIC COATED) 81 MG PO (08:50)
--- NOTE | 2024-12-19 08:51 | CON.GI ---
Addendum entered and electronically signed by Jose Ornelas MD 12/19/24 11:14:
Patient seen and examined, agree with resident note. Patient is a 64-year-old male with past medical history as noted including poorly controlled diabetes and diabetic gastroparesis who presents with uncontrollable nausea and vomiting. He been
doing okay over the past several months though for the past few days has been having increasing nausea and vomiting, unable to tolerate most foods. Upon presentation he was found to have leukocytosis, hyperglycemia, repeat hemoglobin A1c in the
eights, along with hyponatremia and alkalosis. On exam he has no significant tenderness, and he is denied any fever, chills, bleeding, chest pain or shortness of breath. He has had no dysphagia and overall has been doing well from a swallowing
standpoint. His last EGD last year was negative for EOE, Alcazar's esophagus or significant stricture.
1. Nausea/vomiting: With likely worsening of his gastroparesis, with metabolic derangement including hyperglycemia, hyponatremia etc. adding, now feeling much better after IV fluids and improvement in his glucose. At this point we will continue
glycemic control, hydration, antiemetics and PPI. Will plan to advance diet as tolerated.
Original Note:
Consultation
-
Date/Time Consultation Requested: 12/18/24
Date/Time Consultation Performed: 12/18/24
Requesting Provider: Dinora PIKE
Performing Provider: ,
Reason for Consultation: Intractle nausea and vomiting/diabetic gastroparesis
Medical History
Chief Complaint / HPI
Chief Complaint: Intractable nausea/vomiting, diabetic gastroparesis
History of Present Illness:
This is a 64-year-old male patient with past medical history of HTN, CAD on Plavix, IDDM, diabetic gastroparesis and GERD who presents with symptoms of intractable nausea and vomiting. He states that his symptoms started on and had been continuous.
He had been only maintaining a liquid diet for the past few days as he is unable to tolerate other foods. He has had 2 episodes of nonbloody vomiting this morning. He also admits to having diarrhea on Monday and chills. He denies any fever,
abdominal pain, dysphagia or odynophagia. He does state that he uses marijuana as a sleep aid.
He had been previously hospitalized in 07/2020 for for similar symptoms due to diabetic gastroparesis. He has been on will Voquezna, sucralfate, metoclopramide and famotidine and has tolerated well. He states his last A1c was 7.6 in 07/2024.
His last colonoscopy was in 2019- One diminutive polyp at the hepatic flexure removed, Two 5 mm polyps in the transverse colon and in the ascending colon removed and diverticulosis in sigmoid and was due in 5 years.
He had a recent OP EGD with Dr. Benavides on 08/2024�esophageal mucosal changes suspicious for eosinophilic esophagitis, biopsy negative, normal examined duodenum.
Past Medical History
Past Medical History: CAD, GERD, HTN, Hypercholesterolemia, IDDM and Other (Diabetic gastroparesis, esophagitis)
Past Surgical History: Other (Nasal surgery-deviated septum, herniated disc repair, left rotator cuff repair)
Social History
Tobacco: Other (Former smoker 30 years 1 pack/day. Uses marijuana a sleep aid 3x-4x/week)
Alcohol: Occasional (Beers on weekends)
Personal:
Living: With Family
Family History
Family History: Reviewed & Not Pertinent
Allergies / Home Medications
Allergy/AdvReac Type Severity Reaction Status Date / Time
Sulfa (Sulfonamide Allergy Itching, Verified 12/18/24 14:03
Antibiotics) hives
�Medication �Instructions �Recorded
aspirin 81 mg tablet,delayed 81 mg PO DAILY Blood Clot 01/21/24
release Prevention/Tx
atorvastatin 40 mg tablet 40 mg PO DAILY High Cholesterol 01/21/24
ezetimibe 10 mg tablet 10 mg PO DAILY High Cholesterol 01/21/24
therapeutic multivitamin 1 tab PO DAILY Supplement 01/21/24
carvedilol 6.25 mg tablet 6.25 mg PO BID #60 tabs 01/24/24
clopidogrel 75 mg tablet 75 mg PO DAILY #30 tabs 01/24/24
sucralfate 100 mg/mL oral 1 g (10 mL) PO BID 1 month #600 mL 04/10/24
suspension
famotidine 20 mg tablet 20 mg PO BID Gastrointestinal Issue 07/08/24
Patient's Own Insulin Pump 1 sliding scale dose SC .CONTINUOUS 12/18/24
amlodipine 5 mg tablet 5 mg PO DAILY 12/18/24
budesonide 160 mcg-glycopyr 9 2 inh inhalation R BID 12/18/24
mcg-formot 4.8 mcg/actuation HFA
inhaler (Breztri Aerosphere)
metoclopramide HCl 10 mg tablet 10 mg PO BIDPRN PRN nausea/vomiting 12/18/24
vonoprazan 10 mg tablet (Voquezna) 10 mg PO DAILY 12/18/24
Review of Systems
-
All other systems: A 12 pt ROS was Negative except as stated above in HPI
Vital Signs
Temp Pulse Resp BP Pulse Ox
97.8 F 99 16 109/56 95
12/19/24 00:00 12/19/24 08:22 12/19/24 08:22 12/19/24 06:08 12/19/24 08:22
Physical Exam
Exam
General: No Apparent Distress
HEENT: Normocephalic
Respiratory: Clear
Cardiac: S1/S2 and Regular Rhythm
GI: Soft, Non Tender, Non Distended and Normal Bowel Sounds
Musculoskeletal: No Cyanosis and No Edema
Skin: Warm and Dry
Neuro: Awake, Alert and Oriented
Psych: Calm
Results
WBC 13.0 10^3/uL (4.8-10.8) H 12/18/24 14:12
Hgb 17.8 g/dL (13.0-18.0) 12/18/24 14:12
Hct 49.4 % (39.0-52.0) 12/18/24 14:12
MCV 80.7 fL (80.0-94.0) 12/18/24 14:12
Plt Count 238 10^3/uL (130-400) 12/18/24 14:12
Absolute Neuts (auto) 11.0 10^3/uL (1.4-6.5) H 12/18/24 14:12
Sodium 129 mmol/L (135-145) L 12/19/24 04:43
Potassium 3.8 mmol/L (3.5-5.1) 12/19/24 04:43
Chloride 91 mmol/L (98-107) L 12/19/24 04:43
Carbon Dioxide 29 mmol/L (22-30) 12/19/24 04:43
BUN 20 mg/dl (9-20) 12/19/24 04:43
Creatinine 0.8 mg/dL (0.7-1.3) 12/19/24 04:43
Calcium 9.0 mg/dl (8.4-10.2) 12/19/24 04:43
Total Bilirubin 1.0 mg/dl (0.2-1.3) 12/18/24 14:12
AST 33 U/L (17-59) 12/18/24 14:12
ALT 35 U/L (0-50) 12/18/24 14:12
Alkaline Phosphatase 129 U/L (38-126) H 12/18/24 14:12
Lipase 97 U/L (23-300) 12/18/24 14:12
Diagnostic Image Results: n/a
Prior GI Procedures:
03/2024 esophagram Mild presbyesophagus. Otherwise, normal fluoroscopic evaluation of the esophagus.
04/2024 gastric emptying scan at that time with concern for gastroparesis with at 120 minutes greater than 80 activity remains at 240minites 70 percent remains.
EGD:
01/23 EGD which showed LA grade D esophagitis with no stigmata of bleeding along with gastritis with recommended repeat in 2 months. pathology which shows active esophagitis with ulceration and granulation reaction that was negative for CMV and
HSV.
08/2024: - Esophageal mucosal changes suspicious for
eosinophilic esophagitis.
- A medium amount of food (residue) in the stomach.
- Normal examined duodenum.
- Biopsies were taken with a cold forceps for
evaluation of eosinophilic esophagitis. (negative for Eosinophilic esophagitis)
Colonoscopy:
07/2020: - One diminutive polyp at the hepatic flexure, removed
with a jumbo cold forceps. Resected and retrieved.
- Two 5 mm polyps in the transverse colon and in the
ascending colon, removed with a cold snare. Resected
and retrieved.
- Diverticulosis in the sigmoid colon.
Assessment / Plan
-
Summary:This is a 64-year-old male patient with past medical history of HTN, CAD on Plavix, IDDM, diabetic gastroparesis and GERD who presents with symptoms of intractable nausea and vomiting. He states that his symptoms started on and had been
continuous. He had been only maintaining a liquid diet for the past few days as he is unable to tolerate other foods. He has had 2 episodes of nonbloody vomiting this morning. He also admits to having diarrhea on Monday and chill. He denies any
fever, abdominal pain, dysphagia or odynophagia. He does state that he uses marijuana as a sleep aid.
He had been previously hospitalized in 07/2020 for for similar symptoms due to diabetic gastroparesis. He has been on will Voquezna, sucralfate, metoclopramide and famotidine and has tolerated well. He states his last A1c was 7.6 in 07/2024.
His last colonoscopy was in 2019- One diminutive polyp at the hepatic flexure removed, Two 5 mm polyps in the transverse colon and in the ascending colon removed and diverticulosis in sigmoid and was due in 5 years.
He had a recent OP EGD with Dr. Benavides on 08/2024�esophageal mucosal changes suspicious for eosinophilic esophagitis, biopsy negative, normal examined duodenum.
Assessment/Plan:
#Intractable nausea/vomiting secondary to diabetic gastroparesis
� Currently on full liquid diet and advance as tolerated
- Continue PPI, sucralfate, Voquezna
- Continue antiemetics
- HbA1c 8.6 - uncontrolled
- Colonoscopy last was in 2019, next is due in 2024 which can be done OP
- No dysphagia/odynophagia with recent EGD on 08/2024
- Likely that N/V due to uncontrolled DM as HbA1c increased from 7.6 in 07/2024
- Recommended bowel rest, maintaining hydration and diabetic control for relief of N/V
-
-
Thank you for consultation and allowing me to participate in the patient's care. Please call the accounting manager assistant controller GI physician during the after hours with any questions or concerns.
[2024-12-19] MEDS: PT'S OWN INSULIN PUMP - NovoLOG SC ×4 (08:52→21:47)
[2024-12-19 08:53] LABS: Glucose - Point of Care 142 mg/dl (70-99)
--- NOTE | 2024-12-19 09:45 | W.PN.HOSP.TC ---
Today's Communication/Plan
-
Continue IV fluids, antinausea medication and upgrade diet as tolerated.
Assessment / Plan
Assessment / Plan
Assessment:
64-year-old male with a past medical history of insulin-dependent type 1 diabetes, diabetic gastroparesis, primary hypertension, hyperlipidemia, and CAD, esophagitis, GERD, and history of tobacco abuse presented to the [facility] ED on
12/18/2024 due to recent history of intractable nausea and vomiting that began this past weekend. It started on Monday after breakfast and he has not been able to eat anything solid since then. Patient reports having flashes of hot and cold in the
meantime but does not have any reported fever or chills. He did have some diarrhea on Monday but has been feeling a bit constipated since then. He has been feeling weak due to not being able to eat. He does have a history of gastroparesis and he
says that these symptoms have been similar to his previous episodes. Patient is on an insulin pump at home. In the ED, he was started on supportive care with IV fluids and antinausea medication. Patient continues to feel better with IV fluid
therapy and is now on a full liquid diet. Will advance diet as tolerated.
Plan:
# Persistent nausea and vomiting most likely secondary to gastroparesis
-Patient was n.p.o., was switched to full liquid diet which she has been tolerating
-Will advance diet as tolerated
-Continue IV fluids
-Continue antiemetics
-Waiting on results of urine drug screen, Patient says that he has prescription for marijuana, raising suspicion for cannabinoid hyperemesis syndrome
-BMP showed low sodium levels, continue to monitor and give IV fluids
-Beta hydroxybutyrate increased
-GI was consulted
# Insulin-dependent type 1 diabetes
-Continue monitoring patient's blood glucose and use insulin as needed
-Continue insulin pump, patient's will be bringing some more from home
-Diabetic nurse consulted for aid in management of insulin pump, input appreciated
# Benign hypertension
-Continue home medications of Norvasc 5 mg daily and carvedilol 6.25 mg twice daily
# History of coronary artery disease
-Continue aspirin and Plavix
# GERD
-Continue famotidine, sucralfate and Vonoprazan
# Hyperlipidemia
-Continue ezetimibe plus atorvastatin
DVT Px: Lovenox
Full code
Anticipated Discharge: Within 24 hours
Subjective/Interval History
-
Date of Service: December 19, 2024
Patient reported feeling a little bit better, with less nausea and no instance of vomiting since he has been in the hospital. He has been unable to tolerate much by mouth but he has been trying to drink more fluids and also try to eat his full
liquid diet. He is not eating anything since Monday he says.
Objective Data
-
Labs:
Laboratory Results
12/19/24
04:43
Sodium 129 L
Potassium 3.8
Chloride 91 L
Carbon Dioxide 29
BUN 20
Creatinine 0.8
Glucose 140 H
Calcium 9.0
Vital Signs:
Vital Signs
Temp Pulse Resp BP Pulse Ox
97.8 F 99 16 183/87 89
12/19/24 00:00 12/19/24 08:22 12/19/24 08:22 12/19/24 08:50 12/19/24 08:48
I&O
12/18/24 12/19/24 12/20/24
06:59 06:59 06:59
Intake Total 1180 / 1180
Balance 1180 / 1180
Review of Systems
-
History Source: Patient
Constitutional: Reports Fatigue; Denies Fever or Chills
EENT: Reports No Symptoms Reported
Respiratory: Denies Cough or Trouble Breathing
Cardiac: Denies Chest Pain, Diaphoresis, Palpitations or Syncope
Abdomen/GI: Reports Nausea and Vomiting; Denies Abdominal Pain, Diarrhea or Constipated
Musculoskeletal: Reports No Symptoms
Neuro: Denies Headache, Weakness or Numbness
Endocrine: Reports No Symptoms
Hematologic / Lymphatic: Reports No Symptoms
Physical Exam
-
General: Well Developed, Well Nourished, No Apparent Distress, Comfortable and Conversant
HEENT: Normocephalic and Atraumatic
Respiratory: Clear to Auscultation and Non Labored Respirations
Cardiac: Regular Rhythm and S1/S2
GI: Soft, Nontender, Nondistended and Normal Bowel Sounds
Musculoskeletal: No Clubbing, No Cyanosis and No Edema
Skin: Warm
Neuro: Awake, Alert, Oriented and AO x 3
Psych: Calm
Data Reviewed
-
Labs: Labs Reviewed by me, Discussed with Physician and Discussed with Patient
[2024-12-19 09:50] LABS: Glycohemoglobin (HgbA1c) 8.3 % (4.0-5.6)
--- NOTE | 2024-12-19 12:05 | W.PN.UPDATE ---
Update Note
Progress Note Update
I saw and evaluated the patient. I reviewed the resident�s note and agree with findings and plan as documented in the resident�s note.
No new complaints.
Gen: NAD, AAOx3.
Eyes: EOMI, PERRLA, no scleral icterus.
Neck: supple.
CV: RRR, +S1/S2, no m/r/g.
Resp: CTAB, no rales, wheezes, or rhonchi.
Abd: +BS, soft, NT, ND
Skin: No rashes.
Neuro: CN 2-12 intact, non-focal.
Psych: Normal mood and affect.
Diabetic gastroparesis:
-ultimately this is supportive care and correction of underlying hyperglycemia
-GI following
-IVFs, antiemetics, supportive care
DM:
-Poorly controlled with a1c 8.3%
-pt admits to noncompliance
-cont insulin pump
Other problems:
Hyponatremia: Likely due to N/V, cont IVFs
Essential hypertension: cont Coreg/Norvasc
CAD: Cont ASA/statin/BB/Plavix
HLD: cont statin
COPD, not in acute exac: Cont Symbicort/Spiriva
FULL/Lovenox
[2024-12-19 13:06] LABS: Glucose - Point of Care 94 mg/dl (70-99)
[2024-12-19] MEDS: REGLAN 10 MG IV ×2 (13:08→18:46)
--- NOTE | 2024-12-19 14:12 | PN.DE.MGMTRT ---
Insulin Management
- -
12/19/2024: Diabetes Management Consult:
Patient admitted 12/17 with uncontrolled N & V and Hyperglycemia, due to Gastroparesis.
PMH: HTN, HCL, T1DM, GERD, Gastroparesis. Prior to admission patient was using the Medtronic 780 with Guardian Sensor, and NovoLog insulin. He is followed by Dr. Bautista endocrine @ [facility]. Patient known to me from previous admission. A1C 8.3%, Cr
0.8, eGFR > 60
Patient is awake alert and oriented able to discuss diabetes management. at bedside. all questions answered.
Pt reports ongoing nausea and vomiting, states he has not been able to tolerate any oral intake.
Of note, Glucose stable and in range, HS glucose was 142, FBG 140(V), 142 POC this AM.
Clear liquids started with lunch, glucose pre lunch 94, he has a glass of apple juice and chicken broth on his lunch tray.
His pump is in place, with Pump settings as follows:
Basal ICR
12A 1.9 12A 1:5
3A 1.8 12P 1:4
7A 1.8 8P 1:5
9A 1.8 ISF 12A - 12A 1:30
12P 2.05
8P 1.9 Target 12A -12A 90-120
24 hr total basal 45.94 units. Patient is capable of using and managing his pump independently, to continue.
Will make no changes to current pump settings. Will assess overnight glucose and make adjustments if needed.
Will cont to follow. Discussed with pt and Nurse to keep glucose work sheet at bedside and cont accucheks ACHS on hospital device.
Diabetes History
- -
Type of Diabetes: 1
Pre-Admission Diabetes Regimen
12/18/24 12/19/24
14:12 04:43
Creatinine 1.0 0.8
Lab Results
Hemoglobin A1c 8.3 % (4.0-5.6) H 12/19/24 04:43
Insulin Pump Settings
IP Diabetes Regimen
12/18/24 12/19/24 12/19/24
14:12 00:24 04:43
Glucose 279 H 140 H
POC Glucose 141 H
12/19/24 12/19/24
08:52 13:04
Glucose
POC Glucose 142 H 94
Meal type: Breakfast
Amount consumed: 0
Patient Education
--- NOTE | 2024-12-19 14:37 | PTCARENOTE ---
Received pt from ER via stretcher, accompanied by ER staff. Pt AAO x3, SEWELL well, ambulatory to bed, no c/o weakness/dizziness. VSS. On room air- pulse ox 95%, no SOB noted. Abd large, soft, to be on full liquid diet. Pt still c/o mild nausea;
stated he received IV med for nausea prior to transfer to [facility]. pt DTV; urinal at bedside. IVF's NSS @ 100 ml/hr infusing via Rt forearm site without sx of infiltration. Resting in bed at present. Will continue to monitor.
[2024-12-19 17:20] LABS: Glucose - Point of Care 160 mg/dl (70-99)
[2024-12-19] MEDS: LOVENOX 40 MG SC (17:43)
[2024-12-19] MEDS: FLUSH (NSS) 1 FLUSH IV ×2 (17:44→18:46)
[2024-12-19 21:34] LABS: Glucose - Point of Care 86 mg/dl (70-99)
[2024-12-20] MEDS: REGLAN 10 MG IV ×4 (03:08→22:09)
[2024-12-20] MEDS: ZOFRAN 4 MG IV (05:51)
[2024-12-20 07:26] LABS: Hematocrit 41.5 % (39.0-52.0); Hemoglobin 14.9 g/dL (13.0-18.0); Mean Corp Hgb Conc. 35.9 g/dL (33.0-37.0); Mean Corpuscular Hgb 28.9 pg (27.0-31.0); Mean Corpuscular Volume 80.6 fL (80.0-94.0); Mean Platelet Volume 10.6 fL (7.4-10.4); Platelet Count 179 10^3/uL (130-400); Red Blood Cell Count 5.15 10^6/uL (4.70-6.10); Red Cell Dist. Width 13.5 % (11.5-14.5); White Blood Cell Count 7.1 10^3/uL (4.8-10.8)
[2024-12-20] MEDS: SYMBICORT 160/4.5 MCG INHALER 2 PUFF INH ×2 (07:36→20:52)
[2024-12-20] MEDS: SPIRIVA RESPIMAT 2.5 MCG 2 PUFF INH (07:36)
[2024-12-20 07:37] VITALS: BP 175/95
[2024-12-20 07:56] LABS: Glucose - Point of Care 90 mg/dl (70-99)
--- NOTE | 2024-12-20 08:16 | PN.DE.MGMTRT ---
Insulin Management
- -
12/20/2024: Diabetes Management Follow up:
Patient admitted 12/17 with uncontrolled N & V and Hyperglycemia, due to Gastroparesis.
PMH: HTN, HCL, T1DM, GERD, Gastroparesis. Prior to admission patient was using the Medtronic 780 with Guardian Sensor, and NovoLog insulin. He is followed by Dr. Bautista endocrine @ [facility]. Patient known to me from previous admission. A1C 8.3%, Cr
0.8, eGFR > 60
Patient is awake alert and oriented able to discuss diabetes management.
Pt reports ongoing nausea and vomiting overnight, states his appetite remains guarded and he has had much to eat.
Remains on full liquid diet. Glucose low normal without hypoglycemia, HS glucose was 86, FBG 105(V) this AM.
His pump is in place, with Pump settings as follows:
Basal ICR ISF Target
12A 1.9 12A 1:5 12A - 12A 1:30 12A -12A 90-120
3A 1.8 12P 1:4
7A 1.8 8P 1:5
9A 1.8
12P 2.05
8P 1.9
24 hr total basal 45.94 units. Patient is capable of using and managing his pump independently, to continue.
Will make no changes to current pump settings. Will cont to follow.
Discussed with pt and Nurse to keep glucose work sheet at bedside and cont accucheks ACHS on hospital device.
Diabetes History
- -
Type of Diabetes: 1
Pre-Admission Diabetes Regimen
Lab Results
Hemoglobin A1c 8.3 % (4.0-5.6) H 12/19/24 04:43
Insulin Pump Settings
IP Diabetes Regimen
12/19/24 12/19/24 12/19/24
08:52 13:04 17:17
POC Glucose 142 H 94 160 H
12/19/24 12/20/24
21:33 07:55
POC Glucose 86 90
Meal type: Dinner
Meal type: Breakfast
Amount consumed: Patient refused
Amount consumed: 0
Patient Education
[2024-12-20] MEDS: NSS 1000 IV (08:18)
[2024-12-20 08:19] LABS: Blood Urea Nitrogen 17 mg/dl (9-20); Calcium 8.5 mg/dl (8.4-10.2); Carbon Dioxide 28 mmol/L (22-30); Chloride 95 mmol/L (98-107); Estimated Creatinine Clearance 107 ml/min; Glucose 105 mg/dl (70-99); Potassium 3.4 mmol/L (3.5-5.1); Sodium 129 mmol/L (135-145); eGFR > 60.00
[2024-12-20] MEDS: COREG 6.25 MG PO ×2 (08:20→20:44)
[2024-12-20] MEDS: CARAFATE SUSPENSION 1 GM PO ×2 (08:20→20:43)
[2024-12-20] MEDS: ZETIA 10 MG PO (08:21)
[2024-12-20] MEDS: ASPIR LOW (ENTERIC COATED) 81 MG PO (08:21)
[2024-12-20] MEDS: PLAVIX 75 MG PO (08:21)
[2024-12-20] MEDS: PEPCID 20 MG PO ×2 (08:21→20:43)
[2024-12-20] MEDS: THERAGRAN 1 TABLET PO (08:22)
[2024-12-20] MEDS: LIPITOR 40 MG PO (08:22)
[2024-12-20] MEDS: PT'S OWN INSULIN PUMP - NovoLOG SC ×4 (08:22→22:07)
[2024-12-20] MEDS: NORVASC 5 MG PO (08:22)
--- NOTE | 2024-12-20 09:09 | W.PN.HOSP.TC ---
Today's Communication/Plan
-
Advance diet as tolerated for patient. Continue monitoring blood pressure as it was a bit higher and give hydralazine as needed. IV fluids continue
Assessment / Plan
Assessment / Plan
Assessment:
64-year-old male with a past medical history of insulin-dependent type 1 diabetes, diabetic gastroparesis, primary hypertension, hyperlipidemia, and CAD, esophagitis, GERD, and history of tobacco abuse presented to the [facility] ED on
12/18/2024 due to recent history of intractable nausea and vomiting that began this past weekend. It started on Monday after breakfast and he has not been able to eat anything solid since then. Patient reports having flashes of hot and cold in the
meantime but does not have any reported fever or chills. He did have some diarrhea on Monday but has been feeling a bit constipated since then. He has been feeling weak due to not being able to eat. He does have a history of gastroparesis and he
says that these symptoms have been similar to his previous episodes. Patient is on an insulin pump at home. In the ED, he was started on supportive care with IV fluids and antinausea medication. Patient continues to feel better with IV fluid
therapy and is now on a full liquid diet. Will advance diet as tolerated.
Plan:
# Persistent nausea and vomiting most likely secondary to gastroparesis
-Patient was n.p.o., was switched to full liquid diet which she has been tolerating
-Will advance diet as tolerated
-Continue IV fluids
-Continue antiemetics
-BMP showed low sodium levels, continue to monitor and give IV fluids
-Beta hydroxybutyrate increased
-GI was consulted, input appreciated
-Hyponatremia continues
# Hypokalemia
-Dropped to 3.4 today
-Repleted today
-Most likely due to vomiting, continue monitoring BMP
-Replete as needed
# Insulin-dependent type 1 diabetes
-Continue monitoring patient's blood glucose and use insulin as needed
-Continue insulin pump, patient's will be bringing some more from home
-Diabetic nurse consulted for aid in management of insulin pump, input appreciated
-HbA1c 8.3
-Patient has a follow-up appointment with industrial hire sales assistant beginning of December
-Counseled patient upon proper diet
-Patient aware that his current condition is due to his bad eating habits this past weekend
# Benign hypertension
-Continue home medications of Norvasc 5 mg daily and carvedilol 6.25 mg twice daily
-Hydralazine as needed as needed
-Blood pressure was a bit increased today, hydralazine as needed
# History of coronary artery disease
-Continue aspirin and Plavix
# GERD
-Continue famotidine, sucralfate and Vonoprazan
# Hyperlipidemia
-Continue ezetimibe plus atorvastatin
DVT Px: Lovenox
Full code
Anticipated Discharge: Within 24 hours
Subjective/Interval History
-
Date of Service: December 20, 2024
Patient said that he had some nausea and vomiting late last night however it has much improved since before especially after taking Reglan and Zofran. Said he has had the same symptoms in the past and was admitted around 6 times for similar
symptoms in the past year. Feeling little bit dehydrated but overall in much better spirits than yesterday.
Objective Data
-
Labs:
Laboratory Results
12/20/24
06:46
WBC 7.1
Hgb 14.9
Hct 41.5
Plt Count 179 D
Sodium 129 L
Potassium 3.4 L
Chloride 95 L
Carbon Dioxide 28
BUN 17
Creatinine 0.7
Glucose 105 H
Calcium 8.5
Vital Signs:
Vital Signs
Temp Pulse Resp BP Pulse Ox
98.4 F 88 15 175/90 93
12/20/24 07:37 12/20/24 08:20 12/20/24 07:39 12/20/24 08:22 12/20/24 08:35
I&O
12/19/24 12/20/24 12/21/24
06:59 06:59 06:59
Intake Total 1180 / 1180 2860 / 2860
Output Total 1350 / 1350
Balance 1180 / 1180 1510 / 1510
Review of Systems
-
History Source: Patient
Constitutional: Reports Fatigue; Denies Fever or Chills
EENT: Reports No Symptoms Reported
Respiratory: Denies Cough or Trouble Breathing
Cardiac: Denies Chest Pain, Diaphoresis, Palpitations or Syncope
Abdomen/GI: Reports Nausea and Vomiting; Denies Abdominal Pain, Diarrhea or Constipated
Musculoskeletal: Reports No Symptoms
Neuro: Denies Headache, Weakness or Numbness
Endocrine: Reports No Symptoms
Hematologic / Lymphatic: Reports No Symptoms
Physical Exam
-
General: Well Developed, Well Nourished, No Apparent Distress, Comfortable and Conversant
HEENT: Normocephalic and Atraumatic
Respiratory: Clear to Auscultation and Non Labored Respirations
Cardiac: Regular Rhythm and S1/S2
GI: Soft, Nontender, Nondistended and Normal Bowel Sounds
Musculoskeletal: No Clubbing, No Cyanosis and No Edema
Skin: Warm
Neuro: Awake, Alert, Oriented and AO x 3
Psych: Calm
Data Reviewed
-
Labs: Labs Reviewed by me, Discussed with Physician, Discussed with Nurse and Discussed with Patient
[2024-12-20] MEDS: KCL 270 MEQ IV (09:48)
[2024-12-20 10:39] VITALS: BP 159/84
--- NOTE | 2024-12-20 11:28 | CM ---
Addendum entered by Raf Wallace 12/20/24 11:35:
Patient LOC changed to IP
Original Note:
Patient seen bedside, initial assessment completed. Patient is a 64-year-old male with past medical history significant for diabetes mellitus insulin-dependent, diabetic gastroparesis, primary hypertension, hyperlipidemia, CAD, esophagitis, GERD and
Hx of tobacco abuse who presented to [facility] ED for evaluation of intractable nausea and vomiting.
Patient reports he lives w/ spouse, daughter and granddaughter in a 2STH- 1 step to enter. Patient is independent w/ ambulating and ADLs, no device required. Patient has grab bars in the home. Patient denies SNF/VN hx, engaged in OP therapy in the
past for knee and elbow injuries. No current OP or home services at this time.
Address, point of contact and insurance verified
PCP: Maria Del Carmen Davidson
Pharmacy: [facility]
Plan: Anticipate home; no needs
--- NOTE | 2024-12-20 11:32 | W.PN.UPDATE ---
Update Note
Progress Note Update
I saw and evaluated the patient. I reviewed the resident�s note and agree with findings and plan as documented in the resident�s note.
Reports vomiting O/N. Tolerating clears.
Gen: NAD, AAOx3.
Eyes: EOMI, PERRLA, no scleral icterus.
Neck: supple.
CV: remains RRR, +S1/S2, no m/r/g.
Resp: remains CTAB, no rales, wheezes, or rhonchi.
Abd: remains +BS, soft, NT, ND
Skin: No rashes.
Neuro: CN 2-12 intact, non-focal.
Psych: Normal mood and affect.
Diabetic gastroparesis:
-ultimately this is supportive care and correction of underlying hyperglycemia
-GI following
-IVFs, antiemetics, supportive care
DM:
-Poorly controlled with a1c 8.3%
-pt admits to noncompliance
-cont insulin pump
Hyponatremia:
-Likely due to N/V, cont IVFs
-c/s renal
-check serum Osm, UOsm, Ginny
Other problems:
Essential hypertension: cont Coreg/Norvasc
CAD: Cont ASA/statin/BB/Plavix
HLD: cont statin
COPD, not in acute exac: Cont Symbicort/Spiriva
FULL/Lovenox
[2024-12-20 12:08] LABS: Glucose - Point of Care 96 mg/dl (70-99)
[2024-12-20 13:20] LABS: Osmolality Urine 459 mOsm/kg (300-900)
[2024-12-20] MEDS: PT'S OWN INSULIN PUMP - NovoLOG 2.05 UNIT SC ×2 (13:20→17:11)
[2024-12-20 13:26] LABS: Urine Sodium 107 mmol/L (30-90)
--- NOTE | 2024-12-20 13:41 | W.PN.GI.CBS2 ---
Addendum entered and electronically signed by Jennifer Garduno MD 12/20/24 21:06:
I saw and examined the patient.
The resident's note was reviewed and I agree with the note.
Comment: Patient currently denies any nausea and vomiting feeling well for the past at least 16 hours or so. Did take Reglan and Zofran around 4 PM but tolerating low fat, low residue and diabetic diet.
Diabetic gastroparesis, presenting with symptoms related to elevated blood sugars and elevated hemoglobin A1c.
Currently improving.
Reinforced the importance of blood sugar control to prevent hospital admission.
EGD August 2024 essentially unremarkable.
Continue low residue, low-fat diabetic diet, follow-up with Dr. Benavides as outpatient.
Original Note:
Today's Communication / Plan
-
advance diet to diabetic low residue diet
continue supportive care
Assessment / Plan
-
Summary:This is a 64-year-old male patient with past medical history of HTN, CAD on Plavix, IDDM, diabetic gastroparesis and GERD who presents with symptoms of intractable nausea and vomiting. He states that his symptoms started on and had been
continuous. He had been only maintaining a liquid diet for the past few days as he is unable to tolerate other foods. He has had 2 episodes of nonbloody vomiting this morning. He also admits to having diarrhea on Monday and chills. He denies any
fever, abdominal pain, dysphagia or odynophagia. He does state that he uses marijuana as a sleep aid.
He had been previously hospitalized in 07/2020 for for similar symptoms due to diabetic gastroparesis. He has been on will Voquezna, sucralfate, metoclopramide and famotidine and has tolerated well. He states his last A1c was 7.6 in 07/2024.
His last colonoscopy was in 2019- One diminutive polyp at the hepatic flexure removed, Two 5 mm polyps in the transverse colon and in the ascending colon removed and diverticulosis in sigmoid and was due in 5 years.
He had a recent OP EGD with Dr. Bneavides on 08/2024�esophageal mucosal changes suspicious for eosinophilic esophagitis, biopsy negative, normal examined duodenum.
Assessment/Plan:
#Intractable nausea/vomiting secondary to diabetic gastroparesis
- Continue PPI, sucralfate, Voquezna
- Continue antiemetics
- HbA1c 8.3 - uncontrolled
- Colonoscopy last was in 2019, next is due in 2024 which can be done OP
- No dysphagia/odynophagia symptoms with recent EGD on 08/2024
- Likely that N/V due to uncontrolled DM as HbA1c increased from 7.6 in 07/2024
- Hyponatremia continued, management as per hospitalist
- Recommended supportive care, maintaining hydration and diabetic control for relief of N/V
� Pt appetite returning, will to advance diabetic low residue diet
Subjective
Subjective
Date of Service: December 20, 2024
Patient had no nausea, vomiting or diarrhea overnight. He has been on a fluid diet but now has an appetite, willing to advance diet.
Objective
Data Reviewed
Laboratory Data:
Laboratory Results
12/20/24 06:46
12/20/24 06:46
Laboratory Results
Total Bilirubin 1.0 mg/dl (0.2-1.3) 12/18/24 14:12
AST 33 U/L (17-59) 12/18/24 14:12
ALT 35 U/L (0-50) 12/18/24 14:12
Alkaline Phosphatase 129 U/L (38-126) H 12/18/24 14:12
Lipase 97 U/L (23-300) 12/18/24 14:12
Vital Signs and I&O:
Vital Signs
Temp Pulse Resp BP Pulse Ox
98.4 F 81 20 159/84 95
12/20/24 07:37 12/20/24 10:39 12/20/24 10:39 12/20/24 10:39 12/20/24 10:27
I&O
0312/20/24 12/21/24
06:59 06:59 06:59
Intake Total 1180 / 1180 2860 / 2860
Output Total 1350 / 1350 350 / 350
Balance 1180 / 1180 1510 / 1510 -350 / -350
Physical Exam
Physical Exam
HEENT: Moist mucous membranes
Cardiology: Normal Sinus Rhythm, S1 and S2
Pulmonary: Clear
GI: Soft, Non Distended and Non Tender
Extremities: No Edema
Neuro: Non Focal
[2024-12-20 14:47] LABS: Osmolality Serum 275 mOsm/kg (275-300)
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
[2024-12-20 15:29] VITALS: BP 144/96
[2024-12-20] MEDS: NSS IV (15:53)
[2024-12-20 17:07] LABS: Glucose - Point of Care 101 mg/dl (70-99)
[2024-12-20] MEDS: LOVENOX 40 MG SC (17:19)
[2024-12-20 21:13] LABS: Glucose - Point of Care 91 mg/dl (70-99)
[2024-12-20] MEDS: PT'S OWN INSULIN PUMP - NovoLOG 1.9 UNIT SC (22:09)
[2024-12-20 23:18] VITALS: BP 134/64
[2024-12-21 07:00] VITALS: BP 172/82
[2024-12-21 07:14] LABS: Hematocrit 42.1 % (39.0-52.0); Hemoglobin 15.1 g/dL (13.0-18.0); Mean Corp Hgb Conc. 35.9 g/dL (33.0-37.0); Mean Corpuscular Hgb 28.9 pg (27.0-31.0); Mean Corpuscular Volume 80.7 fL (80.0-94.0); Mean Platelet Volume 10.1 fL (7.4-10.4); Platelet Count 191 10^3/uL (130-400); Red Blood Cell Count 5.22 10^6/uL (4.70-6.10); Red Cell Dist. Width 13.2 % (11.5-14.5); White Blood Cell Count 10.6 10^3/uL (4.8-10.8)
[2024-12-21] MEDS: SYMBICORT 160/4.5 MCG INHALER 2 PUFF INH (07:23)
[2024-12-21] MEDS: SPIRIVA RESPIMAT 2.5 MCG 2 PUFF INH (07:24)
[2024-12-21 07:39] LABS: Glucose - Point of Care 67 mg/dl (70-99)
[2024-12-21 07:57] LABS: Glucose - Point of Care 78 mg/dl (70-99)
[2024-12-21] MEDS: PT'S OWN INSULIN PUMP - NovoLOG SC ×3 (08:00→12:35)
[2024-12-21] MEDS: PT'S OWN INSULIN PUMP - NovoLOG 1.8 UNIT SC (08:00)
[2024-12-21] MEDS: PT'S OWN INSULIN PUMP - NovoLOG 7 UNIT SC (08:00)
[2024-12-21 08:03] LABS: Blood Urea Nitrogen 16 mg/dl (9-20); Calcium 8.7 mg/dl (8.4-10.2); Carbon Dioxide 32 mmol/L (22-30); Chloride 90 mmol/L (98-107); Estimated Creatinine Clearance 93 ml/min; Glucose 76 mg/dl (70-99); Potassium 3.5 mmol/L (3.5-5.1); Sodium 130 mmol/L (135-145); eGFR > 60.00
[2024-12-21] MEDS: ZETIA 10 MG PO (08:05)
[2024-12-21] MEDS: ASPIR LOW (ENTERIC COATED) 81 MG PO (08:05)
[2024-12-21] MEDS: PEPCID 20 MG PO (08:05)
[2024-12-21] MEDS: LIPITOR 40 MG PO (08:06)
[2024-12-21] MEDS: PLAVIX 75 MG PO (08:06)
[2024-12-21] MEDS: THERAGRAN 1 TABLET PO (08:06)
[2024-12-21] MEDS: NORVASC 5 MG PO (08:06)
[2024-12-21] MEDS: COREG 6.25 MG PO (08:06)
[2024-12-21] MEDS: CARAFATE SUSPENSION 1 GM PO (08:08)
[2024-12-21 09:00] VITALS: BP 138/80
--- NOTE | 2024-12-21 10:42 | GLUCOSE ---
Addendum entered by Jacque Monaco RN 12/21/24 10:45:
64 y/o male
Original Note:
Pt is a 4 y/o male with insulin pump. 07:40 - BS- 67. Pt given 4 ounces of juice. 07:56 Re check BS 78. Pt then checked BS prior to eating breakfast. BS 77. Pt covered himself with 7 units with meal. Cont to assess patient status.
[2024-12-21 11:58] LABS: Glucose - Point of Care 72 mg/dl (70-99)
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
[2024-12-21] MEDS: PT'S OWN INSULIN PUMP - NovoLOG 2.05 UNIT SC (12:36)
--- NOTE | 2024-12-21 13:13 | W.PN.HOSP.TC ---
Today's Communication/Plan
-
d/c
Assessment / Plan
Assessment / Plan
pt is a 64 year old male
Persistent nausea and vomiting most likely secondary to gastroparesis--resolved--tolerating solid food
Hyponatremia --likely SIADH--cleared for d/c by renal
Hypokalemia--replete
Insulin-dependent type 1 diabetes-Continue insulin pump, patient's will be bringing some more from home-Diabetic nurse consulted for aid in management of insulin pump, input appreciated-HbA1c 8.3
Essential hypertension-Continue home medications of Norvasc 5 mg daily and carvedilol 6.25 mg twice daily
History of coronary artery disease--Continue aspirin and Plavix
GERD-Continue famotidine, sucralfate and Vonoprazan
Hyperlipidemia-Continue ezetimibe plus atorvastatin
DVT Proph--Lovenox
code status--Full code
Anticipated Discharge: Today
Subjective/Interval History
-
Date of Service: December 21, 2024
doing OK--cleared for d/c
Objective Data
-
Labs:
Laboratory Results
12/21/24
06:38
WBC 10.6
Hgb 15.1
Hct 42.1
Plt Count 191
Sodium 130 L
Potassium 3.5
Chloride 90 L
Carbon Dioxide 32 H
BUN 16
Creatinine 0.8
Glucose 76
Calcium 8.7
Vital Signs:
max temp for 24 hours
12/21/24
07:00
Temp 99 F
Vital Signs
Temp Pulse Resp BP Pulse Ox
99 F 77 14 172/82 95
12/21/24 07:00 12/21/24 08:06 12/21/24 07:31 12/21/24 08:06 12/21/24 08:04
I&O
12/20/24 12/21/24 12/22/24
06:59 06:59 06:59
Intake Total 2860 / 2860 2410 / 2410
Output Total 1350 / 1350 1250 / 1250
Balance 1510 / 1510 1160 / 1160
Review of Systems
-
All other systems: Reviewed and negative
Physical Exam
-
General: Well Developed, Well Nourished and No Apparent Distress
HEENT: Normocephalic and Atraumatic
Respiratory: Clear to Auscultation; Negative Wheezes or Rhonchi
Cardiac: Regular Rhythm and S1/S2; Negative Murmur
GI: Soft, Nontender, Nondistended and Normal Bowel Sounds
Musculoskeletal: No Clubbing, No Cyanosis and No Edema
Neuro: Awake and Alert
Psych: Calm
--- NOTE | 2024-12-21 13:58 | CM ---
CM reviewed medical records. Patient is medically ready for discharge to home. NO needs noted.
PLAN: Home no needs.
[2024-12-21 14:29] VITALS: BP 124/69
--- NOTE | 2024-12-21 14:59 | W.DCSUMMARY ---
Discharge Summary
Discharge Data
Date of Admission: 12/18/24
Date of Discharge: 12/21/24
-
Pending Results: No
Hospital Course
Primary care physician : Maria Del Carmen Davidson
Principal Discharge diagnosis : Nausea and vomiting secondary to gastroparesis, hyponatremia, hypokalemia
Chronic Discharge diagnosis : Type 1 diabetes insulin-dependent, essential hypertension, history of coronary artery disease, gastroesophageal reflux disease, hyperlipidemia
Hospital Course : Patient was a 64-year-old male with a history of type 1 diabetes mellitus insulin-dependent along with acute diabetic gastroparesis among other medical issues who presented for evaluation of intractable nausea and vomiting.
Patient reported that those symptoms started Monday prior to admission after breakfast. He was unable to hold anything down since then. He reports no fevers. He reported diarrhea on the Monday prior to admission but very little output since. He
complained of severe weakness and needing help with his activities of daily living. He had a history of gastroparesis and this is similar to previous episodes. Patient was admitted.
Problem #1: Nausea and vomiting secondary to gastroparesis. Patient was admitted and seen in consultation by GI. He was made n.p.o. and IV fluids were given. Reglan and Zofran were provided for him. He has had flares like this before. On the
day of discharge she tolerated a low residue diabetic diet. He is stable for discharge home at this time.
Problem #2: Hyponatremia. This is likely secondary to syndrome of inappropriate antidiuretic hormone. He was seen in consultation by nephrology. He has been cleared for discharge home. Admission sodium was 129 and discharge sodium was 130.
Problem #3: Hypokalemia. This was followed and repleted as necessary.
Problem #4: All other medical issues. These include Type 1 diabetes insulin-dependent, essential hypertension, history of coronary artery disease, gastroesophageal reflux disease, hyperlipidemia. These medical issues were stable during his
hospitalization. Medications were continued as able.
Patient is stable for discharge home at this time. If there are any questions regarding this dictation or his hospital stay, please do not hesitate to call. Our office number is [phone].
Discharge Plan
-
Patient Disposition: Home (Routine Discharge)
Discharge Diagnosis/Procedures: Nausea and vomiting secondary to gastroparesis, hyponatremia from syndrome of inappropriate antidiuretic hormone secretion, hypokalemia, type 1 diabetes mellitus insulin-dependent, essential hypertension, history of
coronary artery disease, gastroesophageal reflux disease, hyperlipidemia
Condition: Good
Diet: Diabetic, Carb Controlled
Activity: As tolerated
Driving Restrictions: As prior to admission
Bathing Restrictions: None
Referrals:
Maria Del Carmen Davidson PA-C [Family Provider] - in less than 1 week
Prescriptions:
Continued
atorvastatin 40 mg Tablet
40 mg PO DAILY
therapeutic multivitamin Tablet
1 tab PO DAILY
aspirin 81 mg Tablet,Delayed Release (Dr/Ec)
81 mg PO DAILY
ezetimibe 10 mg Tablet
10 mg PO DAILY
carvedilol 6.25 mg Tablet
6.25 mg PO BID Qty: 60 0RF
clopidogrel 75 mg Tablet
75 mg PO DAILY Qty: 30 0RF
sucralfate 100 mg/mL Suspension
1 g PO BID 30 Days Qty: 600 0RF
famotidine 20 mg tablet
20 mg PO BID
amlodipine 5 mg Tablet
5 mg PO DAILY
Breztri Aerosphere 160-9-4.8 mcg/actuation Hfa Aerosol Inhaler
2 inh INHALATION R BID
Voquezna 10 mg Tablet
10 mg PO DAILY
Patient's Own Insulin Pump
1 sliding scale dose SC .CONTINUOUS
Patient Comments:
12/18/24: Patient still using insulin aspart, has not switched to new insulin lispro yet
metoclopramide HCl 10 mg tablet
10 mg PO BIDPRN PRN (Reason: nausea/vomiting)
Discharge Orders:
Discharge Patient (As Directed); Ordered 12/21/24
Ordered By: Kassidy Garrido
Discharge Date and Time
Discharge Date/Time: 12/21/24 14:38
Print Language: MONTSERRATIAN
== END 2024-12-21 14:38 | disposition home or self-care (01) | DRG 74 ==
LOC: 4 EAST ACU 10:10
PROVIDERS: Emergency Medicine; Nurse Practitioner Family; ADMITTING PHYSICIAN Internal Medicine; ATTENDING PHYSICIAN Internal Medicine; CONSULT PHYSICIAN Internal Medicine Gastroenterology; CONSULT PHYSICIAN Internal Medicine Nephrology; EMERGENCY PHYSICIAN Emergency Medicine; FAMILY PHYSICIAN Physician Assistant
DX: E10.43 Type 1 diabetes mellitus with diabetic autonomic (poly)neuropathy (principal); E22.2 Syndrome of inappropriate secretion of antidiuretic hormone; K31.84 Gastroparesis; E78.00 Pure hypercholesterolemia, unspecified; E86.0 Dehydration; E87.6 Hypokalemia; G47.33 Obstructive sleep apnea (adult) (pediatric); I10 Essential (primary) hypertension; I25.10 Atherosclerotic heart disease of native coronary artery without angina pectoris; K21.00 Gastro-esophageal reflux disease with esophagitis, without bleeding; G31.84 Mild cognitive impairment of uncertain or unknown etiology; Z96.41 Presence of insulin pump (external) (internal); Z88.2 Allergy status to sulfonamides; Z87.891 Personal history of nicotine dependence; Z79.02 Long term (current) use of antithrombotics/antiplatelets; Z79.82 Long term (current) use of aspirin; Z79.899 Other long term (current) drug therapy
CPT/HCPCS: 80048; 80053; 82010; 82962; 83036; 83690; 83930; 83935; 84300; 85025; 85027; 94640; 96361; 96374; 96375; 99284

== ENCOUNTER 2025-07-18 06:15 | Day surgery (SDC) | payer OTHER, SELFPAY ==
[2025-07-18 07:22] LABS: Glucose - Point of Care 85 mg/dl (70-99)
== END 2025-07-18 08:35 | disposition home or self-care (01) ==
LOC: GI 06:15
PROVIDERS: ATTENDING PHYSICIAN Specialist; FAMILY PHYSICIAN Physician Assistant
DX: Z12.11 Encounter for screening for malignant neoplasm of colon (principal); K63.5 Polyp of colon; K57.30 Diverticulosis of large intestine without perforation or abscess without bleeding; Z86.0101 Personal history of adenomatous and serrated colon polyps
CPT/HCPCS: 45385; 82962; 88305